=== PATIENT | female | born 1995 | race Caucasian/White ===

== ENCOUNTER 2017-01-15 16:15 | Emergency (ER) | payer OTHER ==
[2017-01-15] MEDS ORDERED: ONDANSETRON 4 MG/2 ML VIAL IVP STA (16:27)
[2017-01-15] MEDS ORDERED: DICYCLOMINE 10 MG/ML 2 ML AMP IM STA (16:27)
--- NOTE | 2017-01-15 16:42 | ED ---
General Adult HPI - General Chief complaint: Abdominal Pain Stated complaint: Abd Pain Time Seen by Provider: 01/15/17 16:22 Source: patient, RN notes reviewed Mode of arrival: ambulatory Limitations: no limitations - History of Present Illness Initial comments: 21-year-old female presents to the emergency department with a chief complaint of abdominal pain. She started to have this cramping abdominal pain about 2 hours ago. Patient states she had one episode of vomiting with it. Denies any fevers changes in bowel or bladder habits. States she has had this pain in the past and they never figure it out. She denies any fever chills. She's been able to eat normally. They were concerned due to the continued pain so she thought that she should be evaluated. Patient denies any recent fever, chills, shortness of breath, chest pain, back pain, numbness or tingling, dysuria or hematuria, constipation or diarrhea, headaches or visual changes, or any other current symptoms. - Related Data Home Medications Medication Instructions Recorded Confirmed No Known Home Medications [No 07/14/14 01/15/17 Known Home Medications] Allergies Allergy/AdvReac Type Severity Reaction Status Date / Time hydromorphone HCl AdvReac Nausea Verified 01/15/17 16:46 [From Dilaudid] Review of Systems ROS Statement: Those systems with pertinent positive or pertinent negative responses have been documented in the HPI. ROS Other: All systems not noted in ROS Statement are negative. Past Medical History Past Medical History: No Reported History History of Any Multi-Drug Resistant Organisms: None Reported Past Surgical History: No Surgical Hx Reported Past Psychological History: ADD/ADHD Smoking Status: Former smoker Past Alcohol Use History: None Reported Past Drug Use History: Marijuana General Exam - General Exam Comments Initial Comments: General: The patient is awake and alert, in no distress, and does not appear acutely ill. Eye: Pupils are equal, round and reactive to light, extra-ocular movements are intact; there is normal conjunctiva bilaterally. No signs of icterus. Ears, nose, mouth and throat: There are moist mucous membranes and no oral lesions. Neck: The neck is supple, there is no tenderness. Cardiovascular: There is a regular rate and rhythm. No murmur, rub or gallop is appreciated. Respiratory: Lungs are clear to auscultation, respirations are non-labored, breath sounds are equal. No wheezes, stridor, rales, or rhonchi. Gastrointestinal: Soft, non-distended, non-tender abdomen without masses or organomegaly noted. There is no rebound or guarding present. No CVA tenderness. Bowel sounds are unremarkable. Back: There is no tenderness to palpation in the midline. There is no obvious deformity. No rashes noted. Musculoskeletal: Normal ROM, no tenderness, There is no pedal edema. There is no calf tenderness or swelling. Sensation intact. Pulses equal bilaterally 2+. Neurological: CN II-XII intact, There are no obvious motor or sensory deficits. Coordination appears grossly intact. Speech is normal. Skin: Skin is warm and dry and no rashes or lesions are noted. Psychiatric: Cooperative, appropriate mood & affect, normal judgment. Limitations: no limitations Course Vital Signs 01/15/17 16:19 Temperature 98.4 F Pulse Rate 87 Respiratory 18 Rate Blood Pressure 131/66 O2 Sat by Pulse 98 Oximetry Medical Decision Making - Medical Decision Making 21-year-old female presents emergency department with a chief complaint of abdominal pain. This time patient's lab work is reviewed. Patient's ultrasound as well. Tylenol for pain. Discussed follow-up with or so. Patient stated that she understood and she is in agreement this plan. All questions have been answered. She'll be discharged. - Lab Data Result diagrams: 01/15/17 16:50 01/15/17 16:50 Lab Results 01/15/17 01/15/17 01/15/17 Range/Units 16:50 16:50 16:50 WBC 13.4 H (4.0-11.0) k/uL RBC 5.20 (3.80-5.40) m/uL Hgb 15.2 (11.4-16.0) gm/dL Hct 46.2 H (34.0-46.0) % MCV 88.8 (80.0-100.0) fL MCH 29.1 (25.0-35.0) pg MCHC 32.8 (31.0-37.0) g/dL RDW 13.8 (11.5-15.5) % Plt Count 247 (150-450) k/uL Neutrophils % 74 % Lymphocytes % 19 % Monocytes % 5 % Eosinophils % 1 % Basophils % 0 % Neutrophils # 9.9 H (1.3-7.7) k/uL Lymphocytes # 2.5 (1.0-4.8) k/uL Monocytes # 0.7 (0-1.0) k/uL Eosinophils # 0.2 (0-0.7) k/uL Basophils # 0.0 (0-0.2) k/uL Sodium 137 (137-145) mmol/L Potassium 4.1 (3.5-5.1) mmol/L Chloride 106 (98-107) mmol/L Carbon Dioxide 22 (22-30) mmol/L Anion Gap 9 mmol/L BUN 10 (7-17) mg/dL Creatinine 0.70 (0.52-1.04) mg/dL Est GFR (MDRD) Af Amer >60 (>60 ml/min/1.73 sqM) Est GFR (MDRD) Non-Af >60 (>60 ml/min/1.73 sqM) Glucose 85 (74-99) mg/dL Calcium 9.4 (8.4-10.2) mg/dL Total Bilirubin 0.2 (0.2-1.3) mg/dL AST 18 (14-36) U/L ALT 47 (9-52) U/L Alkaline Phosphatase 84 (38-126) U/L Total Protein 6.6 (6.3-8.2) g/dL Albumin 4.1 (3.5-5.0) g/dL Amylase 60 (30-110) U/L Lipase 51 (23-300) U/L Urine Color Urine Appearance (Clear) Urine pH (5.0-8.0) Ur Specific [place] (1.001-1.035) Urine Protein (Negative) Urine Glucose (UA) (Negative) Urine Ketones (Negative) Urine Blood (Negative) Urine Nitrite (Negative) Urine Bilirubin (Negative) Urine Urobilinogen (<2.0) mg/dL Ur Leukocyte Esterase (Negative) Urine RBC (0-5) /hpf Urine WBC (0-5) /hpf Ur Squamous Epith Cells (0-4) /hpf Urine Bacteria (None) /hpf Urine Mucus (None) /hpf Urine HCG, Qual Detected (Not Detectd) 01/15/17 Range/Units 16:50 WBC (4.0-11.0) k/uL RBC (3.80-5.40) m/uL Hgb (11.4-16.0) gm/dL Hct (34.0-46.0) % MCV (80.0-100.0) fL MCH (25.0-35.0) pg MCHC (31.0-37.0) g/dL RDW (11.5-15.5) % Plt Count (150-450) k/uL Neutrophils % % Lymphocytes % % Monocytes % % Eosinophils % % Basophils % % Neutrophils # (1.3-7.7) k/uL Lymphocytes # (1.0-4.8) k/uL Monocytes # (0-1.0) k/uL Eosinophils # (0-0.7) k/uL Basophils # (0-0.2) k/uL Sodium (137-145) mmol/L Potassium (3.5-5.1) mmol/L Chloride (98-107) mmol/L Carbon Dioxide (22-30) mmol/L Anion Gap mmol/L BUN (7-17) mg/dL Creatinine (0.52-1.04) mg/dL Est GFR (MDRD) Af Amer (>60 ml/min/1.73 sqM) Est GFR (MDRD) Non-Af (>60 ml/min/1.73 sqM) Glucose (74-99) mg/dL Calcium (8.4-10.2) mg/dL Total Bilirubin (0.2-1.3) mg/dL AST (14-36) U/L ALT (9-52) U/L Alkaline Phosphatase (38-126) U/L Total Protein (6.3-8.2) g/dL Albumin (3.5-5.0) g/dL Amylase (30-110) U/L Lipase (23-300) U/L Urine Color Yellow Urine Appearance Cloudy H (Clear) Urine pH 7.0 (5.0-8.0) Ur Specific [place] 1.019 (1.001-1.035) Urine Protein Negative (Negative) Urine Glucose (UA) Negative (Negative) Urine Ketones Negative (Negative) Urine Blood Negative (Negative) Urine Nitrite Negative (Negative) Urine Bilirubin Negative (Negative) Urine Urobilinogen <2.0 (<2.0) mg/dL Ur Leukocyte Esterase Small H (Negative) Urine RBC 1 (0-5) /hpf Urine WBC 3 (0-5) /hpf Ur Squamous Epith Cells 3 (0-4) /hpf Urine Bacteria Occasional H (None) /hpf Urine Mucus Rare H (None) /hpf Urine HCG, Qual (Not Detectd) - Radiology Data Radiology results: report reviewed, image reviewed Disposition Clinical Impression: Abdominal pain affecting Disposition: HOME SELF-CARE Condition: Stable Instructions: Abdominal Pain in (ED) Additional Instructions: Please use medication as discussed. Please follow up with family doctor if symptoms have not improved over the next two days. Please return to the emergency room if your symptoms increase or worsen or for any other concerns. Referrals: Palmer Franklin MD [Primary Care Provider] - 1-2 days Time of Disposition: 17:54
[2017-01-15 17:04] LABS: Basophils % (A) 0 %; CH 29.8; CHCM 33.7; Eosinophils # (A) 0.2 k/uL (0-0.7); Eosinophils % (A) 1 %; HCT 46.2 % (34.0-46.0); HDW 2.44; HGB 15.2 gm/dL (11.4-16.0); Luc # (Auto) 0.13; Luc % (Auto) 1; Lymphocytes # (A) 2.5 k/uL (1.0-4.8); Lymphocytes % (A) 19 %; MCH 29.1 pg (25.0-35.0); MCHC 32.8 g/dL (31.0-37.0); MCV 88.8 fL (80.0-100.0); Monocytes # (A) 0.7 k/uL (0-1.0); Monocytes % (A) 5 %; Neutrophils # (A) 9.9 k/uL (1.3-7.7); Neutrophils % (A) 74 %; RDW 13.8 % (11.5-15.5); WBC 13.4 k/uL (4.0-11.0); WBC (Perox) 12.64
[2017-01-15 17:06] LABS: Appearance,Urine Cloudy (Clear); Bacteria,Urine Occasional /hpf; Bilirubin,Urine Negative (Negative); Glucose,Urine (UA) Negative (Negative); Ketones,Urine Negative (Negative); Leukocyte Esterase,Urine Small (Negative); Mucus,Urine Rare /hpf; Nitrite,Urine Negative (Negative); Particle Count 7525; Protein,Urine Negative (Negative); RBC,Urine 1 /hpf (0-5); Specific Gravity,Urine 1.019 (1.001-1.035); Squamous Epithelial Cell,Urine 3 /hpf (0-4); UA Billing (MACRO vs. MICRO) MICRO; Urobilinogen,Urine <2.0 mg/dL (<2.0); WBC,Urine 3 /hpf (0-5)
[2017-01-15 17:13] LABS: ALT 47 U/L (9-52); AST 18 U/L (14-36); Alkaline Phosphatase 84 U/L (38-126); Amylase 60 U/L (30-110); Anion Gap 9 mmol/L; Blood Urea Nitrogen 10 mg/dL (7-17); Calcium 9.4 mg/dL (8.4-10.2); Carbon Dioxide 22 mmol/L (22-30); Chloride 106 mmol/L (98-107); Glucose 85 mg/dL (74-99); Non-African American GFR(MDRD) >60 (>60 ml/min/1.73 sqM); Potassium 4.1 mmol/L (3.5-5.1); Sodium 137 mmol/L (137-145); Total Bilirubin 0.2 mg/dL (0.2-1.3); Total Protein 6.6 g/dL (6.3-8.2)
--- NOTE | 2017-01-15 17:53 | US ---
EXAMINATION TYPE: US OB <=14 wks transvag DATE OF EXAM: 01/15/2017 COMPARISON: NONE CLINICAL HISTORY: Pain. Cramping EXAM PERFORMED: Transvaginal (TV) and Transabdominal (TA) EXAM MEASUREMENTS: GESTATIONAL AGE / DATING Physician Established: Not yet established Dates by LMP: LMP unknown Dates by First Scan: No previous this is first scan Dates by Current Scan for: (6 weeks/3 days) EDC: 09/07/17 MATERNAL ANATOMY Uterus: 8.3 x 4.3 x 5.5cm Right Ovary: 2.9 x 1.5 x 1.6cm Left Ovary: 3.4 x 2.2 x 2.6cm Post CDS / Adnexa: appears wnl Presence of free fluid: no Presence of corpus luteal cyst: yes, left ovary = 2.4 x 2.0 x 2.3cm GESTATION / SURVEY CRL: 0.6cm (6 weeks/3 days) Yolk Sac (normal less than 6mm): 0.2cm Heart Rate: 121 bpm Rhythm: Normal IUP: Viable IUP Date of LMP: beginning of December Beta HcG (if available): Not available at this time Single viable IUP 6wks/3days with JOJO of 09/07/17. Corpus luteum left ovary. Cystic area adjacent to left ovary = 1.1 x 1.1cm ? possible paraovarian cyst IMPRESSION: Single living intrauterine fetus. The gestational age is 6 weeks 3 days. I see no complicating proces s.
[2017-01-15 18:20] VITALS: BP 128/56; PULSE 77; RESP 20; TEMP 98.3
== END 2017-01-15 18:10 | disposition home or self-care (01) ==
LOC: EC 16:15
DX: O99.89 Other specified diseases and conditions complicating pregnancy, childbirth and the puerperium (principal); R10.9 Unspecified abdominal pain; O21.0 Mild hyperemesis gravidarum; Z87.891 Personal history of nicotine dependence; Z88.5 Allergy status to narcotic agent; Z3A.01 Less than 8 weeks gestation of pregnancy
CPT/HCPCS: 96372 ×2; 96374 ×2; 99284 ×2; 36415; 80053; 82150; 83690; 85025; 81001; 81025; 84702; 76801; 76817; J0500; J2405

== ENCOUNTER 2017-03-17 09:32 | Emergency (ER) | payer OTHER ==
[2017-03-17] MEDS ORDERED: diphenhydrAMINE 50 MG/ML 1 ML VIAL IVP STA (10:07)
[2017-03-17] MEDS ORDERED: SODIUM CHLORIDE 0.9% 1,000 ML IV STA ×2 (10:07)
[2017-03-17] MEDS ORDERED: METOCLOPRAMIDE 5 MG/ML 2 ML VIAL IVP STA (10:07)
[2017-03-17] MEDS ORDERED: ACETAMINOPHEN TAB 500 MG TAB PO STA (10:08)
[2017-03-17 10:49] LABS: Appearance,Urine Cloudy (Clear); Bacteria,Urine Rare /hpf; Basophils % (A) 0 %; Bilirubin,Urine Negative (Negative); Blood,Urine Negative (Negative); Color,Urine Yellow; Eosinophils # (A) 0.1 k/uL (0-0.7); Eosinophils % (A) 1 %; Glucose,Urine (UA) Negative (Negative); HGB 14.7 gm/dL (11.4-16.0); Ketones,Urine 2+ (Negative); Leukocyte Esterase,Urine Small (Negative); Lymphocytes # (A) 0.5 k/uL (1.0-4.8); Lymphocytes % (A) 4 %; MCH 28.7 pg (25.0-35.0); MCHC 31.8 g/dL (31.0-37.0); MCV 90.2 fL (80.0-100.0); Mean Platelet Volume 8.9; Monocytes # (A) 0.4 k/uL (0-1.0); Monocytes % (A) 3 %; Mucus,Urine Many /hpf; Neutrophils # (A) 11.8 k/uL (1.3-7.7); Neutrophils % (A) 92 %; Nitrite,Urine Negative (Negative); Platelet Count 214 k/uL (150-450); Protein,Urine 1+ (Negative); RBC,Urine 15 /hpf (0-5); RDW 14.7 % (11.5-15.5); Specific Gravity,Urine 1.031 (1.001-1.035); Squamous Epithelial Cell,Urine 24 /hpf (0-4); WBC 12.8 k/uL (4.0-11.0); WBC,Urine 9 /hpf (0-5)
[2017-03-17 10:58] LABS: ALT 37 U/L (9-52); AST 16 U/L (14-36); Albumin 3.8 g/dL (3.5-5.0); Alkaline Phosphatase 66 U/L (38-126); Amylase 48 U/L (30-110); Anion Gap 10 mmol/L; Blood Urea Nitrogen 8 mg/dL (7-17); Carbon Dioxide 26 mmol/L (22-30); Chloride 104 mmol/L (98-107); Glucose 113 mg/dL (74-99); Lipase 38 U/L (23-300); Potassium 3.8 mmol/L (3.5-5.1); Sodium 140 mmol/L (137-145); Total Bilirubin 0.4 mg/dL (0.2-1.3); Total Protein 6.4 g/dL (6.3-8.2)
--- NOTE | 2017-03-17 11:10 | ED ---
Nausea/Vomiting/Diarrhea HPI <Paul Gomez - Last Filed: 03/17/17 12:48> - General Source: patient, RN notes reviewed, old records reviewed Mode of arrival: ambulatory Limitations: no limitations <Lina Hua - Last Filed: 03/17/17 22:09> - General Chief complaint: Nausea/Vomiting/Diarrhea Stated complaint: 15 WEEKS AND CRAMPING Time Seen by Provider: 03/17/17 10:03 - History of Present Illness Initial comments: This is a 21-year-old female presents emergency department today chief complaint of severe abdominal pain starting 8:00 yesterday evening into today. She said multiple episodes of vomiting. She is currently 15 weeks . 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 Clemente. She denies any lower abdominal pain or cramping. Denies any vaginal bleeding. She reports that she's had no fever or chills. She is concerned because she's not been able to hold any fluids down. She states that she's had no significant medical history or surgeries. Family history of gallbladder disease. (Lina Hua) - Related Data Home Medications Medication Instructions Recorded Confirmed Aph-Iajf-Sdiwg Acid 1 cap PO HS 03/17/17 03/17/17 [-U Capsule (formulary)] Previous Rx's Medication Instructions Recorded Metoclopramide [Reglan] 5 mg PO TID #12 tab 03/17/17 Allergies Allergy/AdvReac Type Severity Reaction Status Date / Time hydromorphone HCl AdvReac Nausea Verified 03/17/17 12:33 [From Dilaudid] Review of Systems ROS Other: All systems not noted in ROS Statement are negative. <Paul Gomez - Last Filed: 03/17/17 12:48> ROS Other: All systems not noted in ROS Statement are negative. <Lina Hua - Last Filed: 03/17/17 22:09> ROS Statement: Those systems with pertinent positive or pertinent negative responses have been documented in the HPI. Past Medical History Past Medical History: Seizure Disorder History of Any Multi-Drug Resistant Organisms: None Reported Past Surgical History: No Surgical Hx Reported Past Psychological History: ADD/ADHD Smoking Status: Former smoker Past Alcohol Use History: None Reported Past Drug Use History: Marijuana <Lina Hua - Last Filed: 03/17/17 22:09> General Exam <Paul Gomez - Last Filed: 03/17/17 12:48> Limitations: no limitations General appearance: alert, in no apparent distress Head exam: Present: atraumatic, normocephalic, normal inspection Eye exam: Present: normal appearance ENT exam: Present: normal exam, mucous membranes moist Neck exam: Present: normal inspection. Absent: tenderness, meningismus, lymphadenopathy Respiratory exam: Present: normal lung sounds bilaterally. Absent: respiratory distress, wheezes, rales, rhonchi, stridor Cardiovascular Exam: Present: regular rate, normal rhythm, normal heart sounds. Absent: systolic murmur, diastolic murmur, rubs, gallop, clicks GI/Abdominal exam: Present: soft, tenderness (epigastric tenderness), normal bowel sounds. Absent: distended, guarding, rebound, rigid Extremities exam: Present: normal inspection, full ROM, normal capillary refill. Absent: tenderness, pedal edema, joint swelling, calf tenderness Back exam: Present: normal inspection Neurological exam: Present: alert, oriented X3, CN II-XII intact Psychiatric exam: Present: normal affect, normal mood <Lina Hua - Last Filed: 03/17/17 22:09> - General Exam Comments Initial Comments: This is a 21-year-old female. She is currently 15 weeks . She appears in moderate discomfort. (Lina Hua) Vital Signs 03/17/17 03/17/17 09:37 13:10 Temperature 98.6 F 96.4 F L Pulse Rate 123 H 85 Respiratory 18 16 Rate Blood Pressure 148/77 131/81 O2 Sat by Pulse 96 98 Oximetry Medical Decision Making - Lab Data Result diagrams: 03/17/17 10:35 03/17/17 10:35 <Paul Gomez - Last Filed: 03/17/17 12:48> - Lab Data Result diagrams: 03/17/17 10:35 03/17/17 10:35 - Radiology Data Radiology results: report reviewed <Lina Hua - Last Filed: 03/17/17 22:09> - Medical Decision Making medical decision making; patient's here because of epigastric discomfort and vomiting. No pain to the right upper quadrant. Patient received fluids medication. Feeling much better at this time. No discomfort on examination. Patient was told that she has some sludge in the gallbladder disease to be followed. Currently she'll be referred back to her family physician and her OB/ [employer] old told return emergency room as needed. No greasy fatty foods. Take medications as directed by her doctors. Dr. Gomez (Jason) - Lab Data Lab Results 03/17/17 03/17/17 03/17/17 Range/Units 10:35 10:35 10:35 WBC 12.8 H (4.0-11.0) k/uL RBC 5.10 (3.80-5.40) m/uL Hgb 14.7 (11.4-16.0) gm/dL Hct 46.0 (34.0-46.0) % MCV 90.2 (80.0-100.0) fL MCH 28.7 (25.0-35.0) pg MCHC 31.8 (31.0-37.0) g/dL RDW 14.7 (11.5-15.5) % Plt Count 214 (150-450) k/uL Neutrophils % 92 % Lymphocytes % 4 % Monocytes % 3 % Eosinophils % 1 % Basophils % 0 % Neutrophils # 11.8 H (1.3-7.7) k/uL Lymphocytes # 0.5 L (1.0-4.8) k/uL Monocytes # 0.4 (0-1.0) k/uL Eosinophils # 0.1 (0-0.7) k/uL Basophils # 0.0 (0-0.2) k/uL Sodium 140 (137-145) mmol/L Potassium 3.8 (3.5-5.1) mmol/L Chloride 104 (98-107) mmol/L Carbon Dioxide 26 (22-30) mmol/L Anion Gap 10 mmol/L BUN 8 (7-17) mg/dL Creatinine 0.60 (0.52-1.04) mg/dL Est GFR (MDRD) Af Amer >60 (>60 ml/min/1.73 sqM) Est GFR (MDRD) Non-Af >60 (>60 ml/min/1.73 sqM) Glucose 113 H (74-99) mg/dL Calcium 9.0 (8.4-10.2) mg/dL Total Bilirubin 0.4 (0.2-1.3) mg/dL AST 16 (14-36) U/L ALT 37 (9-52) U/L Alkaline Phosphatase 66 (38-126) U/L Total Protein 6.4 (6.3-8.2) g/dL Albumin 3.8 (3.5-5.0) g/dL Amylase 48 (30-110) U/L Lipase 38 (23-300) U/L Urine Color Yellow Urine Appearance Cloudy H (Clear) Urine pH 6.0 (5.0-8.0) Ur Specific [place] 1.031 (1.001-1.035) Urine Protein 1+ H (Negative) Urine Glucose (UA) Negative (Negative) Urine Ketones 2+ H (Negative) Urine Blood Negative (Negative) Urine Nitrite Negative (Negative) Urine Bilirubin Negative (Negative) Urine Urobilinogen 2.0 (<2.0) mg/dL Ur Leukocyte Esterase Small H (Negative) Urine RBC 15 H (0-5) /hpf Urine WBC 9 H (0-5) /hpf Ur Squamous Epith Cells 24 H (0-4) /hpf Urine Bacteria Rare H (None) /hpf Urine Mucus Many H (None) /hpf - Radiology Data Single fetus with breech presentation with gestational to 16 weeks and 0 days. Estimated confinement based on examination 09/01/2017. Possible sludge within the gallbladder. Possible hyperechoic echoes insulin- dependent portion. Possible sludge noted. Negative sonographic Edmond sign. Gallbladder wall measures 3 mm. The gallbladder wall is the upper limits of normal in size. (iLna Hua) Disposition <Paul Gomez - Last Filed: 03/17/17 12:48> Time of Disposition: 12:54 <Lina Hua - Last Filed: 03/17/17 22:09> Clinical Impression: Nausea/vomiting in , Gallbladder sludge Disposition: HOME SELF-CARE Condition: Good Instructions: Biliary Colic (ED) Additional Instructions: Patient advised to increase her fluid intake. Take nausea medicine instructed. Follow-up with your [employer]IL[employer] SALES REPRESENTATIVE primary care physician. Avoid fatty greasy foods. Return to emergency department if any alarming signs or symptoms occur. Prescriptions: Metoclopramide [Reglan] 5 mg PO TID #12 tab Referrals: Palmer Franklin MD [Primary Care Provider] - 1-2 days
--- NOTE | 2017-03-17 12:17 | US ---
EXAMINATION TYPE: US gallbladder DATE OF EXAM: 03/17/2017 COMPARISON: NONE CLINICAL HISTORY: Pain. Pelvic pain and N/V x 1 day, patient is 15 weeks , obese patient EXAM MEASUREMENTS: Liver Length: 16.6 cm Gallbladder Wall: 0.3 cm CBD: 0.4 cm Right Kidney: 12.0 x 4.8 x 4.7 cm Pancreas: visualized portions wnl, tail obscured by overlying midline bowel gas Liver: course echotexture Gallbladder: possible hyperechoic echoes within dependant portion, possible sludge Evidence for sonographic Edmond's sign: no CBD: wnl Right Kidney: wnl Limited views of the pancreas are unremarkable. Liver is normal in size without biliary dilatation. There is some questionable sludge within the gallbladder. The gallbladder wall measures 3 mm. The dis corona common hepatic duct measures 4 mm. There is no sonographic Edmond's sign. The right kidney is unremarkable. Intrahepatic IVC is normal. IMPRESSION: 1. POSSIBLE SLUDGE WITHIN THE GALLBLADDER. 2. GALLBLADDER WALL IS AT THE UPPER LIMITS OF NORMAL IN SIZE.
--- NOTE | 2017-03-17 12:25 | US ---
EXAMINATION TYPE: US OB >= 14 wk fetus DATE OF EXAM: 03/17/2017 COMPARISON: US 2017 CLINICAL HISTORY: PainPelvic pain and N/V x 1 day, 2, para 1 TECHNIQUE: Transabdominal (TA) GESTATIONAL AGE / DATING Physician Established: (15 weeks/2 days) EDC: 09/06/2017 Dates by LMP: Unknown Dates by First Scan: (15 weeks/1 days) EDC: 09/07/2017 Dates by Current Scan: (16 weeks/0 days) EDC: 09/01/2017 Beta HCG (if available): Not available at time of exam SURVEY IUP: Single PLACENTA: Posterior PREVIA: Low Lying, tip of placenta 0.5cm from internal cervical os CHASE: 11.0 cm Normal CERVICAL LENGTH (transabdominal: norm > 3.0cm): 3.4 cm BIOMETRY PRESENTATION: Breech LIE: Longitudinal BPD: 3.3 cm 16 weeks / 2 days HC: 11.5 cm 15 weeks / 4 days AC: 9.4 cm 15 weeks / 4 days FL: 1.9 cm 15 weeks / 5 days ESTIMATED WEIGHT IN GRAMS: 131 grams ESTIMATED WEIGHT IN LBS/OZ: 0 lbs. 5 oz. WEIGHT PERCENTAGE BASED ON ESTABLISHED DATES: 65% HC/AC: 1.21 Normal FL/AC: 20.33 HEART RATE: 149 bpm RHYTHM: Normal MATERNAL WALL MEASUREMENT: 3.2 cm from skin to anterior uterine wall (if exam limited due to body hab itus). Viable single IUP measuring 16 weeks 0 days with a heart rate of 149bpm and an estimated delivery elsa e of 09/01/2017. IMPRESSION: Hester fetus present in a breech presentation with a gestational age of 16 weeks 0 days +/- 10 day s. Estimated date of confinement based on this examination is 09/01/2017.
[2017-03-17 13:14] VITALS: BP 131/81; PULSE 85; RESP 16; TEMP 96.4
== END 2017-03-17 13:14 | disposition home or self-care (01) ==
LOC: EC 09:32
DX: O21.9 Vomiting of pregnancy, unspecified (principal); O99.612 Diseases of the digestive system complicating pregnancy, second trimester; O32.1XX0 Maternal care for breech presentation, not applicable or unspecified; K82.8 Other specified diseases of gallbladder; O99.89 Other specified diseases and conditions complicating pregnancy, childbirth and the puerperium; R10.9 Unspecified abdominal pain; Z87.891 Personal history of nicotine dependence; Z79.899 Other long term (current) drug therapy; Z88.5 Allergy status to narcotic agent; Z83.79 Family history of other diseases of the digestive system; Z3A.16 16 weeks gestation of pregnancy
CPT/HCPCS: 36415; 80053; 82150; 83690; 85025; 81001; 76805; 76705; 99284; 96374; 96375; 96361 ×2; J1200; J2765

== ENCOUNTER → 2017-06-04 | Outpatient (CLI) | payer OTHER ==
[2017-06-04 11:40] LABS: HCT 39.5 % (34.0-46.0); HGB 13.6 gm/dL (11.4-16.0); MCHC 34.4 g/dL (31.0-37.0); MCV 87.1 fL (80.0-100.0); Mean Platelet Volume 7.7; Platelet Count 220 k/uL (150-450); RBC 4.53 m/uL (3.80-5.40); RDW 14.3 % (11.5-15.5); WBC 12.2 k/uL (4.0-11.0)
== END | disposition home or self-care (01) ==
LOC: LABWHC1 10:01
PROVIDERS: ATTEND Obstetrics & Gynecology
DX: Z34.82 Encounter for supervision of other normal pregnancy, second trimester (principal); Z3A.00 Weeks of gestation of pregnancy not specified
CPT/HCPCS: 36415; 82950; 85027

== ENCOUNTER 2017-08-17 15:25 | Inpatient (IN) | payer OTHER ==
[2017-08-17] MEDS ORDERED: OXYTOCIN 10 UNIT/ML 1 ML VIAL IM PRN (16:10)
[2017-08-17] MEDS ORDERED: LIDOCAINE 1% (PF) 10 MG/ML (30 ML SDV) SQ PRN (16:10)
[2017-08-17] MEDS ORDERED: METHYLERGONOVINE 0.2 MG/ML 1 ML AMP IM PRN (16:10)
[2017-08-17] MEDS ORDERED: TERBUTALINE 1 MG/ML VIAL SQ PRN (16:10)
[2017-08-17] MEDS ORDERED: CARBOPROST TROMETHAMINE 250 MCG/ML 1 ML AMP IM PRN (16:10)
[2017-08-17] MEDS ORDERED: BUTORPHANOL 1 MG/ML 1 ML VIAL IV PRN (16:11)
[2017-08-17] MEDS ORDERED: OXYTOCIN 20 UNITS/1000 ML NS 1,000 ML IV SCH (16:15)
--- NOTE | 2017-08-17 16:38 | P.HPOB ---
History of Present Illness H&P Date: 08/17/17 Chief Complaint: Spontaneous rupture of membranes This is a 21-year-old female 2 para 1 with an estimated date of confinement of 09/07/2017, estimated gestational age of 37-0/7 weeks, who presents to labor and delivery with complaints of leaking fluid since approximately 11 AM this morning. She initially was unsure if she was leaking and therefore waited a little while to make sure. She has been feeling irregular contractions about every 20 minutes. care has been with Dr. Clemente and has been uncomplicated per patient. labs: Hepatitis B surface antigen-negative RPR-nonreactive Rubella-immune Blood type-O+ Antibody screen-negative HIV-nonreactive Hemoglobin-14.3 One hour Glucola-91 Random glucose-96 GC/Chlamydia-negative Obstetrical ultrasound-normal anatomy One hour Glucola-106 Group B streptococcus-negative Obstetrical history: . History of 1 vaginal delivery at 38 weeks. That was complicated by gestational diabetes. Review of Systems Constitutional: Denies chills, Denies fever Eyes: denies blurred vision, denies pain Ears, nose, mouth and throat: Denies headache, Denies sore throat Cardiovascular: Denies chest pain, Denies shortness of breath Respiratory: Denies cough Gastrointestinal: Reports abdominal pain (Irregular contractions) Genitourinary: Reports pelvic pain, Reports Musculoskeletal: Reports low back pain Integumentary: Denies pruritus, Denies rash Neurological: Reports seizures (History, no seizures since 2014.), Denies numbness, Denies weakness Psychiatric: Denies anxiety, Denies depression Past Medical History Past Medical History: Seizure Disorder History of Any Multi-Drug Resistant Organisms: None Reported Past Surgical History: No Surgical Hx Reported Past Psychological History: No Psychological Hx Reported Smoking Status: Never smoker Past Alcohol Use History: None Reported Past Drug Use History: Marijuana (Last used approximately 1 month ago) Medications and Allergies Home Medications Medication Instructions Recorded Confirmed Type [id number] Acid 1 cap PO HS 03/17/17 08/17/17 History [-U Capsule (formulary)] Allergies Allergy/AdvReac Type Severity Reaction Status Date / Time No Known Allergies Allergy Verified 08/17/17 16:22 Exam Osteopathic Statement: *. No significant issues noted on an osteopathic structural exam other than those noted in the History and Physical/Consult. - Vital Signs Vital signs: Intake and Output 08/17/17 08/17/17 08/17/17 06:59 14:59 22:59 Other: Weight 117.934 kg HEENT: Within normal limits Heart: Regular rate and rhythm Lungs: Clear to auscultation bilaterally Abdomen: Cervix: 1-1/2 cm/60%/-2 station. Palpable bag of water noted and artificial rupture membranes is carried out with more clear fluid noted. Amnisure was positive in triage area Heart tones: Reactive Contractions: Irregular Extremities: Negative Homans Assessment and Plan (1) 37 weeks gestation of Current Visit: Yes Status: Acute Code(s): Z3A.37 - 37 WEEKS GESTATION OF SNOMED Code(s): 87906895 Plan: Plan is admission for labor. Will start oxytocin augmentation of labor. Epidural anesthesia when desired. Expectant management.
[2017-08-17] MEDS: LACTATED RINGERS 1,000 ML IV SCH ×3 (16:42→23:21)
[2017-08-17 17:04] LABS: Basophils % (A) 0 %; Eosinophils % (A) 0 %; HCT 39.2 % (34.0-46.0); HGB 13.3 gm/dL (11.4-16.0); Lymphocytes # (A) 1.7 k/uL (1.0-4.8); Lymphocytes % (A) 12 %; MCH 30.2 pg (25.0-35.0); MCV 88.8 fL (80.0-100.0); Mean Platelet Volume 7.8; Monocytes # (A) 0.6 k/uL (0-1.0); Monocytes % (A) 5 %; Neutrophils # (A) 10.9 k/uL (1.3-7.7); Neutrophils % (A) 81 %; Platelet Count 205 k/uL (150-450); RBC 4.42 m/uL (3.80-5.40); RDW 14.6 % (11.5-15.5); WBC 13.4 k/uL (4.0-11.0)
[2017-08-17 18:45] VITALS: BMI 44.6
[2017-08-17 18:48] LABS: Amphetamine Screen,Urine Not Detected (NotDetected); Barbiturate Screen,Urine Not Detected (NotDetected); Benzodiazepines Screen,Urine Not Detected (NotDetected); Cocaine Screen,Urine Not Detected (NotDetected); Methadone Screen, Urine Not Detected (NotDetected); Opiate Screen,Urine Not Detected (NotDetected); Oxycodone Screen, Urine Not Detected (NotDetected); Phencyclidine Screen,Urine Not Detected (NotDetected); Tricyclic Antidepressant,Urine Not Detected (NotDetected); Urn Cannabinoid Scrn Detected (NotDetected)
[2017-08-17] MEDS ORDERED: fentaNYL (PF) 50 MCG/ML 5 ML AMP ONE (19:56)
[2017-08-17] MEDS ORDERED: SODIUM CHLORIDE 0.9% 100 ML BAG ONE (19:56)
[2017-08-17] MEDS ORDERED: BUPIVACAINE (PF) 0.25% 30 ML VIAL ONE (19:56)
[2017-08-17] MEDS ORDERED: ROPIVACAINE 100 MG, fentaNYL (PF) 200 MCG in SODIUM CHLORIDE 0.9% 76 ML EPIDURAL ONE (20:26)
--- NOTE | 2017-08-18 00:06 | P.PROBDLV ---
Vaginal Delivery Note - . Vaginal Delivery Note: The patient progressed to complete dilation after oxytocin augmentation of labor and epidural anesthesia. She progressed rather rapidly from 7 to complete and was unable to stop pushing. She delivered vaginally a viable male infant across the perineum into the bed. Brisk cry was noted immediately. Nose and mouth were bulb suctioned on the bed. Cord was clamped and cut. Infant was then given to mother to hold skin to skin. A viable male infant was noted with scores of 8 at 1 minute and 9 at 5 minutes. weight is pending at this time. Placenta delivered shortly thereafter, intact, with a three-vessel cord. Uterus contracted well after oxytocin was given and uterine massage was carried out. Inspection of the perineum revealed a first-degree perineal laceration. This area was anesthetized with 1% lidocaine and then sutured with 3-0 Vicryl suture in a running locked fashion. There was noted to be a right periurethral abrasion but this was noted to be hemostatic. Estimated blood loss is approximately 150 mL's. Both mother and are in stable condition.
[2017-08-18] MEDS ORDERED: diphenhydrAMINE 50 MG CAP PO PRN (00:07)
[2017-08-18] MEDS ORDERED: WITCH HAZEL 1 EACH MED..PAD TOPICAL PRN (00:07)
[2017-08-18] MEDS ORDERED: SIMETHICONE 80 MG CHEWABLE PO PRN (00:07)
[2017-08-18] MEDS ORDERED: diphenhydrAMINE 50 MG/ML 1 ML VIAL IVP PRN ×2 (00:07)
[2017-08-18] MEDS ORDERED: ZOLPIDEM 5 MG TAB PO PRN (00:07)
[2017-08-18] MEDS ORDERED: BENZOCAINE/MENTHOL SPRAY 1 GM/SPRAY AEROSOL TOPICAL PRN (00:07)
[2017-08-18] MEDS ORDERED: HYDROCORTISONE 2.5% RECTAL CREAM 30 GM TUBE RECTAL PRN (00:07)
[2017-08-18] MEDS ORDERED: diphenhydrAMINE 25 MG CAP PO PRN (00:07)
[2017-08-18] MEDS ORDERED: LANOLIN CREAM 5 GM TUBE TOPICAL PRN (00:07)
[2017-08-18] MEDS ORDERED: OXYTOCIN 20 UNITS/1000 ML NS 1,000 ML IV SCH (00:07)
--- NOTE | 2017-08-18 00:07 | P.MSEPDOC ---
Presenting Problems - Arrival Data Date of Arrival on Unit: 08/17/17 Time of Arrival on Unit: 15:20 Mode of Transport: Ambulatory - Complaint OB-Reason for Admission/Chief Complaint: Rule Out SROM Comment: 08/17/17 @ 1100; clear Medical History - Information : 2 Para: 1 Term: 1 : 0 Abortions: Spontaneous or Elective: 0 Number of Living Children: 1 - Gestational Age Gestational Age by JOJO (wks/days): 37 Weeks and 0 Days - History Complications: Hx. Substance Abuse Comment: MJ use during pregnany for seizure management Review of Systems - Review of Systems Constitutional: No problems Breast: No problems ENT: No problems Cardiovascular: No problems Respiratory: No problems Gastrointestinal: No problems Genitourinary: No problems Musculoskeletal: No problems Neurological: No problems Skin: No problems Vital Signs - Temperature Temperature: 96 F Temperature Source: Temporal Artery Scan - Pulse Right Sitting Brachial Pulse Rate: 115 Pulse Assessment Method: Automatic Cuff - Respirations Respiratory Rate: 18 Oxygen Delivery Method: Room Air - Blood Pressure Right Arm Sitting Blood Pressure: 131/76 Blood Pressure Mean: 94 Blood Pressure Source: Automatic Cuff Medical Screen Scoring (Pre) - Cervical Exam Dilation: 1-3 cm = 1 Effacement: More than 50% = 2 Membranes: Ruptured = 3 - Uterine Contractions Frequency: > 5 minutes apart = 1 Duration: N/A Intensity: N/A - Maternal Vital Signs Maternal Temperature: N/A Maternal Blood Pressure: N/A Signs of Preeclampsia: N/A Maternal Respirations: N/A - Maternal Trauma Maternal Trauma: N/A - Assessment Baseline FHR: 135 Heart Rate - NICHD Category: Category I (Normal) = 0 NST: Reactive Position: N/A Station: N/A - Total Score Total Score (Pre): 7 - Level of Risk Level of Risk: Medium (6-9) Physician Notification (Pre) - Physician Notified Physician Notified Date: 08/17/17 Physician Notified Time: 15:52 Physician/Practitioner Notifed:: Dr. Garcia Spoke With: Dr. Garcia New Order Received: Yes - Notification Comment Comment: requested Dr. Garcia to come in as pt is 7 cm dilated Disposition - Disposition OB Disposition: Admit, LDRP Suite I agree with the RN Medical Screening Exam: Yes Risk & Benefit of care provided described in d/c instruction: Yes Diagnosis: ENCOUNTER FOR FULL-TERM UNCOMPLICATED DELIVERY
[2017-08-18] MEDS: IBUPROFEN 600 MG TAB PO PRN ×3 (00:39→22:12)
[2017-08-18] MEDS: SENNOSIDES-DOCUSATE SODIUM 1 EACH TAB PO SCH ×4 (00:39→22:13)
[2017-08-18] MEDS: ACETAMINOPHEN TAB 325 MG TAB PO PRN ×2 (06:30→16:22)
[2017-08-18 07:52] LABS: Basophils % (A) 0 %; Eosinophils # (A) 0.1 k/uL (0-0.7); Eosinophils % (A) 0 %; HCT 38.5 % (34.0-46.0); HGB 13.3 gm/dL (11.4-16.0); Lymphocytes # (A) 1.7 k/uL (1.0-4.8); Lymphocytes % (A) 11 %; MCH 30.5 pg (25.0-35.0); MCHC 34.4 g/dL (31.0-37.0); MCV 88.7 fL (80.0-100.0); Monocytes # (A) 0.9 k/uL (0-1.0); Monocytes % (A) 6 %; Neutrophils # (A) 13.1 k/uL (1.3-7.7); Neutrophils % (A) 81 %; Platelet Count 210 k/uL (150-450); RBC 4.34 m/uL (3.80-5.40); RDW 14.7 % (11.5-15.5); WBC 16.1 k/uL (4.0-11.0)
--- NOTE | 2017-08-18 12:18 | P.PNOBGVD ---
Subjective - Subjective Principal diagnosis: Status post vaginal delivery day #1 Interval history: Patient is doing okay. Her baby did go to level I nursery this morning and is on oxygen. She is sad but understanding. Her lochia is decreasing. Her pain is fairly well controlled with oral pain medication. Patient reports: Reports appetite normal, Reports voiding normally, Reports pain well controlled, Reports ambulating normally : other (In level I nursery) Objective - Latest Vital Signs Latest vital signs: Vital Signs Temp Pulse Resp BP 08/18/17 08:20 98.5 F 80 16 117/61 08/18/17 08:00 98.5 F 83 16 97/51 08/18/17 03:00 96.8 F L 93 18 127/67 08/18/17 02:08 96.8 F L 96 18 114/62 08/18/17 01:38 93 18 109/59 08/18/17 01:08 97.2 F L 93 18 103/58 08/18/17 00:53 93 18 111/63 08/18/17 00:38 97.3 F L 94 18 117/66 08/18/17 00:23 108 H 18 110/64 08/18/17 00:08 97.0 F L 113 H 18 110/60 08/18/17 00:07 96 F L 115 H 18 131/76 08/17/17 18:41 18 08/17/17 16:52 96 F L 115 H 16 131/76 Intake and Output 08/17/17 08/18/17 08/18/17 22:59 06:59 14:59 Intake Total 2000 1620.85 Output Total 150 150 Balance 1850 1470.85 Intake: IV 2000 Lactated Ringers 1,000 ml 2000 @ 125 mls/hr IV .Q8H ALVARO Rx#:[id number] Intake, IV Titration 1020.85 Amount Oxytocin 20 Units/1000 ml 20.85 Ns 1,000 ml @ 1 MILLIUNIT/MIN 3 mls/hr IV .Q24H ALVARO Rx#:[id number] Oxytocin 20 Units/1000 ml 1000 Ns 1,000 ml @ Per Protocol IV .Q0M ALVARO Rx#: [id number] Oral 600 Output: Urine 150 Straight 150 Estimated Blood Loss 150 Other: # Voids 1 Weight 117.934 kg - Exam Abdomen: Present: normal appearance, soft. Absent: distention, tenderness Uterus: Present: normal, firm. Absent: tenderness - Labs Labs: Abnormal Lab Results - Last 24 Hours (Table) 08/17/17 08/17/17 08/18/17 Range/Units 16:41 17:30 07:08 WBC 13.4 H 16.1 H (4.0-11.0) k/uL Neutrophils # 10.9 H 13.1 H (1.3-7.7) k/uL U Marijuana (THC) Screen Detected H (NotDetected) Assessment and Plan Assessment: Status post vaginal delivery day #1 (1) 37 weeks gestation of Current Visit: Yes Status: Acute Code(s): Z3A.37 - 37 WEEKS GESTATION OF SNOMED Code(s): 14571647 Plan: Will continue with care today. Encouraged her to pump her breast milk.
[2017-08-19] MEDS: IBUPROFEN 600 MG TAB PO PRN ×2 (04:17→16:33)
[2017-08-19] MEDS: ACETAMINOPHEN TAB 325 MG TAB PO PRN ×3 (06:26→19:44)
--- NOTE | 2017-08-19 08:00 | P.DS ---
Providers Date of admission: 08/17/17 15:55 Expected date of discharge: 08/19/17 Attending physician: Kellie Garcia Primary care physician: Jane Clemente - Discharge Diagnosis(es) (1) 37 weeks gestation of Current Visit: Yes Status: Acute Hospital Course: This is a 21-year-old female 2 para 1 at 37-0/7 weeks who presented in active labor. Delivered vaginally a viable male infant with scores of 8 at 1 minute and 9 at 5 minutes and weight of 7 lbs. 5 oz. on 08/17/2017. Her course has been essentially compensated. Her baby has gone to level I nursery and is on high flow oxygen and antibiotics. She is planning to breast-feed. Lochia is decreasing. Her pain is fairly well controlled with ibuprofen. Vital signs are stable. Abdomen is soft with fundus firm and nontender. Extremities show negative Homans. Impression is status post vaginal delivery day #2. Plan is to discharge home today. Routine instructions are given. She is advised to follow up with Dr. Clemente in 6 weeks in the office. She will be given a prescription for ibuprofen and a breast pump. She is advised to call the office if she has any further questions or concerns prior to her appointment time. Procedures: Spontaneous vaginal delivery of a viable male infant on 08/17/2017 Patient Condition at Discharge: Stable Plan - Discharge Summary New Discharge Prescriptions: New Ibuprofen [Motrin] 600 mg PO Q6HR PRN #60 tab PRN Reason: Mild Pain Or Fever >= 100.5 Continue Huw-Bink-Jorts Acid [-U Capsule (formulary)] 1 cap PO HS Discharge Medication List Klx-Zknu-Lmaue Acid [-U Capsule (formulary)] 1 cap PO HS [History] Ibuprofen [Motrin] 600 mg PO Q6HR PRN #60 tab 08/19/17 [Rx] Follow up Appointment(s)/Referral(s): Jane Clemente DO [Primary Care Provider] - 6 Weeks Activity/Diet/Wound Care/Special Instructions: Instructions 1. Do not begin any exercise program for 3 weeks. 2. Do not resume sexual relations for 3 weeks or longer if uncomfortable. 3. You may take tub baths or showers at any time. 4. You may use tampons if desired after 3 weeks. 5. Keep the area of episiotomy (stitches) clean and dry. 6. If you are not nursing, wear a good fitting, supportive bra during the day and limit fluid intake for at least 1 week to prevent breast engorgement. 7. Call the office, [phone], within the next week to make appointment for your 6 week checkup if it has not already been made. 8. Report any of the following occurrences to the doctor promptly: a. Heavy, excessive bleeding b. Chills, fever c. Burning or frequency of urination d. Pain or redness and breasts if nursing e. Increasing pain or swelling in episiotomy (stitches). In addition to the above instructions, the following additional should be followed: 1. No heavy lifting or straining (exercising) until after 6 week checkup. 2. Keep abdominal incision clean and dry: You may wear a dressing if more comfortable. 3. Make office appointment for 10 days after going home or as instructed by her doctor. Discharge Disposition: HOME SELF-CARE
[2017-08-19 09:01] VITALS: RESP 16
[2017-08-19] MEDS: SENNOSIDES-DOCUSATE SODIUM 1 EACH TAB PO SCH (09:02)
[2017-08-19] MEDS ORDERED: DIPH,PERTUS(ACELL)TETVAC-LF 0.5 ML VIAL IM ONE (09:30)
[2017-08-19 16:32] VITALS: BP 116/75; PULSE 82; TEMP 98.5
== END 2017-08-19 22:40 | disposition home or self-care (01) | DRG 775 ==
LOC: FBPOP 15:25 → 4FBP 15:55
PROVIDERS: ADMIT Obstetrics & Gynecology; ATTEND Obstetrics & Gynecology
PROC: 00HU33Z Insertion of Infusion Device into Spinal Canal, Percutaneous Approach (ICD-10-PCS; principal; 2017-08-17)
PROC: 3E0R3NZ Introduction of Analgesics, Hypnotics, Sedatives into Spinal Canal, Percutaneous Approach (ICD-10-PCS; principal; 2017-08-17)
PROC: 10907ZC Drainage of Amniotic Fluid, Therapeutic from Products of Conception, Via Natural or Artificial Opening (ICD-10-PCS; principal; 2017-08-17)
PROC: 0HQ9XZZ Repair Perineum Skin, External Approach (ICD-10-PCS; principal; 2017-08-17)
PROC: 10E0XZZ Delivery of Products of Conception, External Approach (ICD-10-PCS; principal; 2017-08-17)
DX: O42.02 Full-term premature rupture of membranes, onset of labor within 24 hours of rupture (principal); O70.0 First degree perineal laceration during delivery; Z37.0 Single live birth; Z3A.37 37 weeks gestation of pregnancy
CPT/HCPCS: 59025; 80306; 84112; 85025; 88307; 90715; 99213

== ENCOUNTER 2018-08-01 06:15 | Inpatient (IN) | payer OTHER ==
[2018-08-05] MEDS ORDERED: CARBOPROST TROMETHAMINE 250 MCG/ML 1 ML AMP IM PRN (06:46)
[2018-08-05] MEDS ORDERED: OXYTOCIN 10 UNIT/ML 1 ML VIAL IM PRN (06:46)
[2018-08-05] MEDS ORDERED: LIDOCAINE 0.5% (PF) 5 MG/ML (50 ML SDV) SQ PRN (06:46)
[2018-08-05] MEDS ORDERED: TERBUTALINE 1 MG/ML VIAL SQ PRN (06:46)
[2018-08-05] MEDS ORDERED: METHYLERGONOVINE 0.2 MG/ML 1 ML AMP IM PRN (06:46)
[2018-08-05] MEDS ORDERED: OXYTOCIN 30 UNITS/500 ML NS 30 UNIT in SALINE 1 500ML.BAG IV SCH (07:00)
[2018-08-05] MEDS ORDERED: LACTATED RINGERS 1,000 ML IV SCH (07:00)
[2018-08-05 07:14] LABS: Basophils % (A) 0 %; Eosinophils # (A) 0.2 k/uL (0-0.7); Eosinophils % (A) 2 %; HCT 42.1 % (34.0-46.0); HGB 13.9 gm/dL (11.4-16.0); Lymphocytes # (A) 1.8 k/uL (1.0-4.8); Lymphocytes % (A) 15 %; MCH 29.4 pg (25.0-35.0); MCV 89.2 fL (80.0-100.0); Mean Platelet Volume 8.5; Monocytes # (A) 0.8 k/uL (0-1.0); Monocytes % (A) 7 %; Neutrophils # (A) 8.8 k/uL (1.3-7.7); Neutrophils % (A) 74 %; Platelet Count 202 k/uL (150-450); RBC 4.72 m/uL (3.80-5.40); RDW 15.3 % (11.5-15.5); WBC 11.9 k/uL (4.0-11.0)
[2018-08-05 08:28] VITALS: BMI 51.0
--- NOTE | 2018-08-05 09:17 | P.HPOB ---
History of Present Illness H&P Date: 08/05/18 Chief Complaint: Induction of labor 22-year-old presents at 40 weeks for induction of labor. Her cervix is 3 cm dilated, 70% effaced, -2 station. She is not august. heart tones are 135 with moderate variability and reactive, no decelerations, category 1 t racing. Review of Systems All systems: negative Constitutional: Denies chills, Denies fever Eyes: denies blurred vision, denies pain Ears, nose, mouth and throat: Denies headache, Denies sore throat Cardiovascular: Denies chest pain, Denies shortness of breath Respiratory: Denies cough Gastrointestinal: Denies abdominal pain, Denies diarrhea, Denies nausea, Denies vomiting Genitourinary: Denies dysuria, Denies hematuria Musculoskeletal: Denies myalgias Integumentary: Denies pruritus, Denies rash Neurological: Denies numbness, Denies weakness Psychiatric: Denies anxiety, Denies depression Endocrine: Denies fatigue, Denies weight change Past Medical History Past Medical History: Seizure Disorder Additional Past Medical History / Comment(s): epilipsy last 2 yrs ago. Obstetric history: She's had 2 previous vaginal deliveries, this is her third . She's had care with me since 27 weeks gestation. Blood type is O+, antibodies negative, rubella immune, RPR nonreactive, hepatitis B negative, HIV nonreactive, toxoplasmosis negative. Normal 1 hour glucose tolerance test, GBS negative. History of Any Multi-Drug Resistant Organisms: None Reported Past Surgical History: No Surgical Hx Reported Additional Past Surgical History / Comment(s): wisdom teeth Past Anesthesia/Blood Transfusion Reactions: No Reported Reaction Past Psychological History: ADD/ADHD, Anxiety Smoking Status: Never smoker Past Alcohol Use History: None Reported Past Drug Use History: Marijuana - Past Family History Mother Family Medical History: No Reported History Medications and Allergies Home Medications Medication Instructions Recorded Confirmed Type Frn-Upka-Kbpkn Acid 1 cap PO HS 03/17/17 08/05/18 History [-U Capsule (formulary)] Allergies Allergy/AdvReac Type Severity Reaction Status Date / Time No Known Allergies Allergy Verified 08/17/17 16:22 Exam Osteopathic Statement: *. No significant issues noted on an osteopathic structural exam other than those noted in the History and Physical/Consult. Vital Signs Temp Pulse Resp BP Pulse Ox 08/05/18 06:44 96 F L 100 16 129/61 97 Intake and Output 08/04/18 08/05/18 08/05/18 22:59 06:59 14:59 Other: Weight 130.635 kg Heart: Regular rate and rhythm Lungs: Clear to auscultation bilaterally Abdomen: Soft, nontender Extremities: Negative Homans sign Results Result Diagrams: 08/05/18 06:51 Abnormal Lab Results - Last 24 Hours (Table) 08/05/18 Range/Units 06:51 WBC 11.9 H (4.0-11.0) k/uL Neutrophils # 8.8 H (1.3-7.7) k/uL Assessment and Plan (1) Normal labor Current Visit: Yes Status: Acute Code(s): O80 - ENCOUNTER FOR FULL-TERM UNCOMPLICATED DELIVERY; Z37.9 - OUTCOME OF DELIVERY, UNSPECIFIED SNOMED Code(s): 75959629 Plan: 1. induction of labor with amniotomy and pitocin 2. anticipate normal vaginal delivery
[2018-08-05] MEDS ORDERED: BUTORPHANOL 1 MG/ML 1 ML VIAL IV PRN (09:57)
[2018-08-05] MEDS ORDERED: SODIUM CHLORIDE 0.9% 100 ML BAG ONE (11:16)
[2018-08-05] MEDS ORDERED: ROPIVACAINE 5MG/ML 20ML VIAL ONE (11:16)
[2018-08-05] MEDS ORDERED: fentaNYL (PF) 50 MCG/ML 5 ML AMP ONE (11:16)
[2018-08-05] MEDS ORDERED: BENZOCAINE/MENTHOL SPRAY 1 GM/SPRAY AEROSOL TOPICAL PRN (13:42)
[2018-08-05] MEDS ORDERED: diphenhydrAMINE 25 MG CAP PO PRN (13:42)
[2018-08-05] MEDS ORDERED: LANOLIN CREAM 5 GM TUBE TOPICAL PRN (13:42)
[2018-08-05] MEDS ORDERED: diphenhydrAMINE 50 MG CAP PO PRN (13:42)
[2018-08-05] MEDS ORDERED: ZOLPIDEM 5 MG TAB PO PRN (13:42)
[2018-08-05] MEDS ORDERED: SIMETHICONE 80 MG CHEWABLE PO PRN (13:42)
[2018-08-05] MEDS ORDERED: HYDROCORTISONE 2.5% RECTAL CREAM 30 GM TUBE RECTAL PRN (13:42)
[2018-08-05] MEDS ORDERED: diphenhydrAMINE 50 MG/ML 1 ML VIAL IVP PRN ×2 (13:42)
[2018-08-05] MEDS ORDERED: WITCH HAZEL 1 EACH MED..PAD TOPICAL PRN (13:42)
[2018-08-05] MEDS ORDERED: OXYTOCIN 20 UNITS/1000 ML NS 1,000 ML IV SCH (13:45)
--- NOTE | 2018-08-05 13:47 | P.PROBDLV ---
Vaginal Delivery Note - . Vaginal Delivery Note: 22-year-old presents at 40 weeks for induction of labor. Her cervix is 3 cm dilated, 70% effaced, -2 station. She is not august. heart tones are 135 with moderate variability and reactive, no decelerations, category 1 tracing. Pitocin was started. Amniotomy performed at 9:04 AM clear fluid noted. When she was 5 cm dilated she got an epidural and was comfortable but feeling pressure. Her cervix was completely dilated at 1317. She pushed, and delivered a viable male over intact perineum under epidural anesthesia at 1332. Head delivered OA, nuchal cord 1 easily reduced, anterior shoulder which was the right shoulder attempted to be delivered on the first push with gentle downward guidance. When the shoulder did not free easily, I attempted to deliver the posterior shoulder which did not deliver, and then I attempted to deliver the anterior shoulder again with gentle downward guidance and it came free without incident. The posterior shoulder was then delivered and the rest of body. Nose and mouth bulb suctioned, cord clamped and cut, infant placed mother's abdomen. Apgars 8, 9, weight 8 lbs. 2 oz. Placenta delivered spontaneously, intact with three-vessel cord at 1335. Vagina, cervix, and perineum were inspected, no lacerations noted. Estimated blood loss 200 mL. Mother and baby in stable condition.
[2018-08-05] MEDS: IBUPROFEN 600 MG TAB PO PRN ×2 (14:13→21:14)
[2018-08-05] MEDS: ACETAMINOPHEN TAB 325 MG TAB PO PRN (17:52)
[2018-08-05] MEDS: SENNOSIDES-DOCUSATE SODIUM 1 EACH TAB PO SCH (21:14)
[2018-08-06] MEDS: ACETAMINOPHEN TAB 325 MG TAB PO PRN ×2 (00:14→07:44)
[2018-08-06] MEDS: IBUPROFEN 600 MG TAB PO PRN ×2 (03:44→12:26)
[2018-08-06 06:33] LABS: Basophils % (A) 0 %; Eosinophils # (A) 0.2 k/uL (0-0.7); Eosinophils % (A) 2 %; HCT 38.9 % (34.0-46.0); Lymphocytes % (A) 18 %; MCH 30.2 pg (25.0-35.0); MCHC 33.4 g/dL (31.0-37.0); MCV 90.3 fL (80.0-100.0); Mean Platelet Volume 8.7; Monocytes # (A) 0.8 k/uL (0-1.0); Monocytes % (A) 7 %; Neutrophils # (A) 7.8 k/uL (1.3-7.7); Neutrophils % (A) 70 %; Platelet Count 178 k/uL (150-450); RBC 4.31 m/uL (3.80-5.40); RDW 15.4 % (11.5-15.5); WBC 11.1 k/uL (4.0-11.0)
[2018-08-06] MEDS: SENNOSIDES-DOCUSATE SODIUM 1 EACH TAB PO SCH (07:44)
[2018-08-06 08:41] VITALS: PULSE 88
[2018-08-06 16:56] VITALS: BP 108/69; RESP 16; TEMP 98.4
== END 2018-08-06 16:35 | disposition home or self-care (01) | DRG 806 ==
LOC: 4FBP 08-05 06:26
PROVIDERS: ADMIT Obstetrics & Gynecology; ATTEND Obstetrics & Gynecology
PROC: 10E0XZZ Delivery of Products of Conception, External Approach (ICD-10-PCS; principal; 2018-08-05)
PROC: 00HU33Z Insertion of Infusion Device into Spinal Canal, Percutaneous Approach (ICD-10-PCS; 2018-08-05)
PROC: 3E0R3BZ Introduction of Anesthetic Agent into Spinal Canal, Percutaneous Approach (ICD-10-PCS; 2018-08-05)
PROC: 3E033VJ Introduction of Other Hormone into Peripheral Vein, Percutaneous Approach (ICD-10-PCS; 2018-08-05)
PROC: 10907ZC Drainage of Amniotic Fluid, Therapeutic from Products of Conception, Via Natural or Artificial Opening (ICD-10-PCS; 2018-08-05)
DX: O69.81X0 Labor and delivery complicated by cord around neck, without compression, not applicable or unspecified (principal); O99.354 Diseases of the nervous system complicating childbirth; Z37.0 Single live birth; O99.344 Other mental disorders complicating childbirth; G40.909 Epilepsy, unspecified, not intractable, without status epilepticus; F90.9 Attention-deficit hyperactivity disorder, unspecified type; F41.9 Anxiety disorder, unspecified; Z3A.40 40 weeks gestation of pregnancy; Z79.899 Other long term (current) drug therapy
CPT/HCPCS: 85025; 86850; 86900; 86901

== ENCOUNTER 2019-04-25 23:28 | Emergency (ER) | payer OTHER ==
[2019-04-25] MEDS ORDERED: SODIUM CHLORIDE 0.9% 1,000 ML IV STA (23:34)
[2019-04-25 23:37] VITALS: TEMP 98.5
--- NOTE | 2019-04-25 23:45 | ED ---
Seizure HPI - General Chief Complaint: Seizure Stated Complaint: seizure Time Seen by Provider: 04/25/19 23:28 Source: patient, EMS, RN notes reviewed Mode of arrival: EMS Limitations: no limitations - History of Present Illness Initial Comments: This is a 23-year-old female history of seizure disorder migraine headaches who states she was drawing a bath prior to arrival when she had seizure. Per paramedics it was delivered typical seizures however she did fall into the bathtub. She complains of pain or trauma where she bit her tongue she has some abrasions to her chin she complains of a frontal headache no neck pain loss of function to her upper or lower extremities feeling medication she is on his Klonopin. She does state that she is very stressed out. No fevers chills nausea vomiting sweats no cough or phlegm production no dysuria hematuria she does take Klonopin 0.5 mg once a day. MD Complaint: seizure - Related Data Home Medications Medication Instructions Recorded Confirmed Gwt-Aaei-Ckirp Acid 1 cap PO HS 03/17/17 08/05/18 [-U Capsule (formulary)] Previous Rx's Medication Instructions Recorded Ibuprofen [Motrin] 600 mg PO Q6HR PRN #30 tab 08/06/18 Allergies Allergy/AdvReac Type Severity Reaction Status Date / Time No Known Allergies Allergy Verified 08/17/17 16:22 Review of Systems ROS Statement: Those systems with pertinent positive or pertinent negative responses have been documented in the HPI. ROS Other: All systems not noted in ROS Statement are negative. Past Medical History Past Medical History: Seizure Disorder Additional Past Medical History / Comment(s): epilipsy last 2 yrs ago. Obstetric history: She's had 2 previous vaginal deliveries, this is her third . She's had care with wi since 27 weeks gestation. Blood type is O+, antibodies negative, rubella immune, RPR nonreactive, hepatitis B negative, HIV nonreactive, toxoplasmosis negative. Normal 1 hour glucose tolerance test, GBS negative. History of Any Multi-Drug Resistant Organisms: None Reported Past Surgical History: No Surgical Hx Reported Additional Past Surgical History / Comment(s): wisdom teeth Past Anesthesia/Blood Transfusion Reactions: No Reported Reaction Past Psychological History: Anxiety Smoking Status: Never smoker Past Alcohol Use History: None Reported Past Drug Use History: Marijuana - Past Family History Mother Family Medical History: No Reported History General Exam - General Exam Comments Initial Comments: This is a well-developed well-nourished awake alert oriented 3 female she does demonstrate a Forsyth Coma Scale of 15. She does states she is under a lot of stress and was initially tearful. She did decline talking to EPS Limitations: no limitations General appearance: alert, anxious Head exam: Present: atraumatic, normocephalic, normal inspection Eye exam: Present: normal appearance, PERRL, EOMI. Absent: scleral icterus, conjunctival injection, periorbital swelling ENT exam: Present: mucous membranes moist, other (Rate is seen to the lateral tongue bilaterally no active bleeding at this time. Additionally there is some abrasion seen over the chin noWounds noted no step-off or crepitation) Neck exam: Present: normal inspection, full ROM, other (No stridor JVD or bruits). Absent: tenderness, meningismus, lymphadenopathy Respiratory exam: Present: normal lung sounds bilaterally. Absent: respiratory distress, wheezes, rales, rhonchi, stridor Cardiovascular Exam: Present: regular rate, normal rhythm, normal heart sounds. Absent: systolic murmur, diastolic murmur, rubs, gallop, clicks GI/Abdominal exam: Present: soft, normal bowel sounds. Absent: distended, tenderness, guarding, rebound, rigid Extremities exam: Present: normal inspection, full ROM, normal capillary refill. Absent: tenderness, pedal edema, joint swelling, calf tenderness Back exam: Present: normal inspection Neurological exam: Present: alert, oriented X3, CN II-XII intact Psychiatric exam: Present: normal affect, normal mood Skin exam: Present: warm, dry, intact, normal color. Absent: rash Course Vital Signs 04/25/19 23:30 Temperature 98.5 F Pulse Rate 89 Respiratory 18 Rate Blood Pressure 128/86 O2 Sat by Pulse 97 Oximetry Medical Decision Making - Medical Decision Making I did discuss findings with patient and her significant other. Patient is awake alert oriented 3 Forsyth Coma Scale 15. She does complain still of a slight headache she was offered medication and while at this time take some. The patient currently is on Klonopin 0.5 mg once a day this was increased about 2 weeks ago this time we will after discussion increase her to twice a day dosing with 0.5 mg in morning 0.25 mg in the evening. She is a follow-up with her doctor as soon as possible and return if any problems. - Lab Data Result diagrams: 04/25/19 23:35 04/25/19 23:25 Lab Results 04/25/19 04/25/19 Range/Units 23:25 23:35 WBC 10.0 (3.8-10.6) k/uL RBC 5.05 (3.80-5.40) m/uL Hgb 15.2 (11.4-16.0) gm/dL Hct 45.3 (34.0-46.0) % MCV 89.8 (80.0-100.0) fL MCH 30.1 (25.0-35.0) pg MCHC 33.6 (31.0-37.0) g/dL RDW 13.3 (11.5-15.5) % Plt Count 202 (150-450) k/uL Neutrophils % 61 % Lymphocytes % 30 % Monocytes % 5 % Eosinophils % 1 % Basophils % 0 % Neutrophils # 6.1 (1.3-7.7) k/uL Lymphocytes # 3.0 (1.0-4.8) k/uL Monocytes # 0.5 (0-1.0) k/uL Eosinophils # 0.1 (0-0.7) k/uL Basophils # 0.0 (0-0.2) k/uL Sodium 138 (137-145) mmol/L Potassium 3.9 (3.5-5.1) mmol/L Chloride 103 (98-107) mmol/L Carbon Dioxide 22 (22-30) mmol/L Anion Gap 13 mmol/L BUN 13 (7-17) mg/dL Creatinine 0.75 (0.52-1.04) mg/dL Est GFR (CKD-EPI)AfAm >90 (>60 ml/min/1.73 sqM) Est GFR (CKD-EPI)NonAf >90 (>60 ml/min/1.73 sqM) Glucose 87 (74-99) mg/dL Calcium 9.2 (8.4-10.2) mg/dL Magnesium 2.0 (1.6-2.3) mg/dL Total Bilirubin 0.4 (0.2-1.3) mg/dL AST 27 (14-36) U/L ALT 24 (4-34) U/L Alkaline Phosphatase 70 (38-126) U/L Creatine Kinase 56 (30-135) U/L Total Protein 7.2 (6.3-8.2) g/dL Albumin 4.6 (3.5-5.0) g/dL - EKG Data -: EKG Interpreted by Me EKG shows normal: sinus rhythm (EKG shows sinus rhythm of 83. Interval 156 QRS duration 98 QT since QTC 388/455 st-t wave changes evidence of a RSR prime or QR pattern in V1) - Radiology Data Radiology results: report reviewed (I did review the imaging and report no acute findings.), image reviewed Disposition Clinical Impression: Generalized seizure, Abrasion of tongue Disposition: HOME SELF-CARE Condition: Good Instructions (If sedation given, give patient instructions): Recurrent Seizures in Adults (ED) Additional Instructions: Increase the dosing of your Klonopin continue with 0.5 mg the morning and start 0.25 mg in the evening. Also follow-up with her doctor as soon as possible. Is patient prescribed a controlled substance at d/c from ED?: No Referrals: Bi Hall MD [Primary Care Provider] - 1-2 days
[2019-04-26 00:03] LABS: Basophils % (A) 0 %; Eosinophils # (A) 0.1 k/uL (0-0.7); Eosinophils % (A) 1 %; HCT 45.3 % (34.0-46.0); HGB 15.2 gm/dL (11.4-16.0); Lymphocytes % (A) 30 %; MCH 30.1 pg (25.0-35.0); MCHC 33.6 g/dL (31.0-37.0); MCV 89.8 fL (80.0-100.0); Mean Platelet Volume 9.5; Monocytes # (A) 0.5 k/uL (0-1.0); Monocytes % (A) 5 %; Neutrophils # (A) 6.1 k/uL (1.3-7.7); Neutrophils % (A) 61 %; Platelet Count 202 k/uL (150-450); RBC 5.05 m/uL (3.80-5.40); RDW 13.3 % (11.5-15.5)
--- NOTE | 2019-04-26 00:06 | CT ---
EXAMINATION TYPE: CT brain wo con DATE OF EXAM: 04/25/2019 COMPARISON: 12:30 14 HISTORY: seizure CT DLP: 1055.4 mGycm Automated exposure control for dose reduction was used. Ventricles and sulci appear normal. There is no mass effect nor midline shift. There is no sign of in tracranial hemorrhage. The calvarium is intact. IMPRESSION: Negative unenhanced head CT scan. No change.
[2019-04-26 00:12] LABS: ALT 24 U/L (4-34); AST 27 U/L (14-36); African American GFR (CKD) >90 (>60 ml/min/1.73 sqM); Albumin 4.6 g/dL (3.5-5.0); Alkaline Phosphatase 70 U/L (38-126); Anion Gap 13 mmol/L; Blood Urea Nitrogen 13 mg/dL (7-17); Calcium 9.2 mg/dL (8.4-10.2); Carbon Dioxide 22 mmol/L (22-30); Chloride 103 mmol/L (98-107); Creatine Kinase 56 U/L (30-135); Glucose 87 mg/dL (74-99); Non-African American GFR(CKD) >90 (>60 ml/min/1.73 sqM); Potassium 3.9 mmol/L (3.5-5.1); Sodium 138 mmol/L (137-145); Total Bilirubin 0.4 mg/dL (0.2-1.3); Total Protein 7.2 g/dL (6.3-8.2)
[2019-04-26] MEDS ORDERED: KETOROLAC 30 MG/ML 1 ML VIAL IVP STA (00:39)
[2019-04-26] MEDS ORDERED: clonazePAM 0.5 MG TAB PO STA (00:39)
[2019-04-26 00:51] VITALS: BP 122/78; PULSE 70; RESP 16
== END 2019-04-26 01:02 | disposition home or self-care (01) ==
LOC: EC 23:28
DX: G40.409 Other generalized epilepsy and epileptic syndromes, not intractable, without status epilepticus (principal); S00.512A Abrasion of oral cavity, initial encounter; R51 Headache; W18.2XXA Fall in (into) shower or empty bathtub, initial encounter; Y93.89 Activity, other specified
CPT/HCPCS: 36415; 93005; 80053; 82550; 83735; 85025; 70450; 96374; 96361; 99285; J1885

== ENCOUNTER 2020-01-21 06:52 | Day surgery (SDC) | payer OTHER ==
--- NOTE | 2020-01-20 13:49 | P.HPOB ---
History of Present Illness H&P Date: 01/20/20 Chief Complaint: Family Planning 24 year old presents for laparoscopic tubal ligation. Review of Systems All systems: negative Constitutional: Denies chills, Denies fever Eyes: denies blurred vision, denies pain Ears, nose, mouth and throat: Denies headache, Denies sore throat Cardiovascular: Denies chest pain, Denies shortness of breath Respiratory: Denies cough Gastrointestinal: Denies abdominal pain, Denies diarrhea, Denies nausea, Denies vomiting Genitourinary: Denies dysuria, Denies hematuria Musculoskeletal: Denies myalgias Integumentary: Denies pruritus, Denies rash Neurological: Denies numbness, Denies weakness Psychiatric: Denies anxiety, Denies depression Endocrine: Denies fatigue, Denies weight change Past Medical History Past Medical History: Seizure Disorder Additional Past Medical History / Comment(s): SEIZURE DISORDER , LAST SEIZURE MORE THAN 2 yrs ago. History of Any Multi-Drug Resistant Organisms: None Reported Past Surgical History: No Surgical Hx Reported Additional Past Surgical History / Comment(s): wisdom teeth Past Anesthesia/Blood Transfusion Reactions: No Reported Reaction Additional Past Anesthesia/Blood Transfusion Reaction / Comment(s): HAS NOT HAD GENERAL ANESTHESIA. Past Psychological History: Anxiety Smoking Status: Vaper Past Alcohol Use History: None Reported, Occasional Past Drug Use History: Marijuana - Past Family History Mother Family Medical History: No Reported History Medications and Allergies Home Medications Medication Instructions Recorded Confirmed Type Ibuprofen [Motrin] 600 mg PO Q6HR PRN #30 tab 08/06/18 01/19/20 Rx Allergies Allergy/AdvReac Type Severity Reaction Status Date / Time No Known Allergies Allergy Verified 01/19/20 13:37 Exam Osteopathic Statement: *. No significant issues noted on an osteopathic structural exam other than those noted in the History and Physical/Consult. Heart: RRR Lungs: CTAB Abdomen: soft, nontender Extremeties: neg roman's Assessment and Plan (1) Family planning Status: Acute Code(s): Z30.09 - ENCOUNTER FOR OTH GENERAL CNSL AND ADVICE ON CONTRACEPTION SNOMED Code(s): 550345365 Plan: 1. laparoscopic tubal ligation
[~2020-01-21 06:52] MED LIST: DEXAMETHASONE SOD PHOSPHATE 4 MG/ML 1 ML VIAL IV ONE; LACTATED RINGERS 1,000 ML IV SCH; LIDOCAINE 1% (10MG/ML) FOR IV START INTRADERMA PRN; ONDANSETRON 4 MG/2 ML VIAL IVP ONE; Pre Op ABX Message 1 EACH MISC MISCELLANE ONE
[2020-01-21] MEDS ORDERED: fentaNYL (PF) 50 MCG/ML 2 ML AMP ONE (07:49)
[2020-01-21] MEDS ORDERED: PROPOFOL 10 MG/ML 20 ML VIAL IV ONE (07:49)
[2020-01-21] MEDS ORDERED: SUCCINYLCHOLINE CHLORIDE VIAL 200 MG/10 ML VIAL IV ONE (07:49)
[2020-01-21] MEDS ORDERED: LIDOCAINE 1% INJ 10MG/ML (20 ML MDV) ONE (07:49)
[2020-01-21] MEDS ORDERED: KETOROLAC 15 MG/ML 1 ML VIAL ONE (07:49)
[2020-01-21] MEDS ORDERED: MIDAZOLAM 2 MG/2 ML VIAL ONE (07:49)
[2020-01-21] MEDS ORDERED: BUPIVACAINE (PF) 0.25% 30 ML VIAL SQ ONE (08:16)
--- NOTE | 2020-01-21 08:39 | P.OP ---
Date of Procedure: 01/21/20 Preoperative Diagnosis: 1. Family planning Postoperative Diagnosis: 1. family planning Procedure(s) Performed: Laparoscopic tubal ligation Anesthesia: MINDY Surgeon: Jane Clemente Estimated Blood Loss (ml): 2 IV fluids (ml): 300 Urine output (ml): 10 Pathology: none sent Condition: stable Disposition: PACU Operative Findings: Normal uterus that sounded to 9 cm, normal tubes, normal ovaries. Description of Procedure: Patient was taken to the operating room where general anesthesia was obtained without difficulty. She was prepped and draped in normal sterile fashion in the dorsal lithotomy position, legs placed in the Rui stirrups. Bladder drained of all urine. Sabinal speculum placed in the vagina and the anterior lip the cervix was grasped with single-tooth tenaculum. The uterus is sounded to 9 cm and the kroner manipulator was placed. Attention was then turned to the abdomen and gloves were changed. A 10 mm infraumbilical incision was made the scalpel and 10 mm optical trocar was placed under direct visualization. A 5 mm suprapubic Incision was made and a 5 mm optical trocar was placed under direct visualization. Survey of the pelvis revealed normal uterus tubes and ovaries. The left fallopian tube was grasped with a Kleppinger and fulgurated 2-3 cm on this side in the ampullar portion. The right fallopian tube was grasped with a Kleppinger and fulgurated 2-3 cm in the ampullar portion. All instruments were then removed from the abdomen and vagina. The 10 mm infraumbilical incision was closed with 0 Vicryl and the fascial layer and then 4-0 Vicryl in a subcuticular fashion. The 5 mm incision was closed with 4-0 Vicryl in a subcuticular fashion. Patient tolerated procedure well, sponge and instrument counts correct 2 and she was taken to recovery room in stable condition.
[2020-01-21] MEDS: MEPERIDINE 50 MG/ML SYRINGE IVP ONE ×2 (08:42→08:50)
[2020-01-21 08:45] VITALS: RESP 16; TEMP 97
[2020-01-21 09:41] VITALS: BP 124/83; PULSE 65
== END 2020-01-21 10:02 | disposition home or self-care (01) ==
LOC: OR 06:52
PROVIDERS: ATTEND Obstetrics & Gynecology
DX: Z30.2 Encounter for sterilization (principal); F41.9 Anxiety disorder, unspecified; G40.909 Epilepsy, unspecified, not intractable, without status epilepticus; Z98.818 Other dental procedure status; F17.290 Nicotine dependence, other tobacco product, uncomplicated
CPT/HCPCS: 81025; 58670; J2250; J0330; J1100; J2175; J2405; J2001; J3010; J1885; J2704

== ENCOUNTER 2020-02-10 16:09 | Emergency (ER) | payer OTHER ==
[2020-02-10 16:42] VITALS: BP 128/84; PULSE 73; RESP 18; TEMP 98.9
== END 2020-02-10 19:00 ==
LOC: EC 16:09
DX: S61.411A Laceration without foreign body of right hand, initial encounter (principal); W10.9XXA Fall (on) (from) unspecified stairs and steps, initial encounter; Z53.21 Procedure and treatment not carried out due to patient leaving prior to being seen by health care provider
CPT/HCPCS: 99499

== ENCOUNTER 2020-09-05 18:53 | Emergency (ER) | payer OTHER ==
[2020-09-05 19:02] VITALS: BP 102/70; PULSE 83; RESP 16; TEMP 98.8
[2020-09-05] MEDS ORDERED: KETOROLAC 15 MG/ML 1 ML VIAL IVP STA (19:17)
[2020-09-05] MEDS ORDERED: diphenhydrAMINE 50 MG/ML 1 ML VIAL IVP STA (19:17)
[2020-09-05] MEDS ORDERED: METOCLOPRAMIDE 5 MG/ML 2 ML VIAL IVP STA (19:17)
[2020-09-05] MEDS ORDERED: SODIUM CHLORIDE 0.9% 1,000 ML IV STA (19:17)
[2020-09-05 19:27] LABS: Glucose,Whole Blood 95 mg/dL (75-99)
--- NOTE | 2020-09-05 19:51 | ED ---
Seizure HPI - General Chief Complaint: Seizure Stated Complaint: Seizures/headache Source: patient Mode of arrival: EMS Limitations: no limitations - History of Present Illness Initial Comments: 24-year-old female with history of epilepsy and migraines presents to the emergency department with a chief complaint of a seizure. Patient reports she had his seizure last night lasting approximately 15 minutes according to the boyfriend. States this was a tonic-clonic seizure. States over the last 2 weeks she's had 2 seizures. States them most recent prior to that was in . States used to be on antiepileptic medications but she stopped taking them. She also reports having a migraine, left-sided along with nausea but no vomiting. She states this feels like her typical migraine headache but is lasting more than usual. Not the worst headache of her life. She also reports photosensitivity but denies any visual changes, chest pain or shortness of breath, one-sided weakness or paresthesias or any gait instability. - Related Data Previous Rx's Medication Instructions Recorded Ibuprofen [Motrin] 600 mg PO Q6HR PRN #30 tab 08/06/18 Acetaminophen-Codeine 300-30mg 2 tab PO Q6H PRN #20 tablet 01/21/20 [Tylenol #3] Ibuprofen [Motrin] 600 mg PO Q6HR PRN #30 tab 01/21/20 Allergies Allergy/AdvReac Type Severity Reaction Status Date / Time No Known Allergies Allergy Verified 09/05/20 19:02 Review of Systems ROS Statement: Those systems with pertinent positive or pertinent negative responses have been documented in the HPI. ROS Other: All systems not noted in ROS Statement are negative. Past Medical History Past Medical History: Seizure Disorder Additional Past Medical History / Comment(s): SEIZURE DISORDER , LAST SEIZURE MORE THAN 2 yrs ago. History of Any Multi-Drug Resistant Organisms: None Reported Past Surgical History: No Surgical Hx Reported Additional Past Surgical History / Comment(s): wisdom teeth Past Anesthesia/Blood Transfusion Reactions: No Reported Reaction Additional Past Anesthesia/Blood Transfusion Reaction / Comment(s): HAS NOT HAD GENERAL ANESTHESIA. Past Psychological History: Anxiety Smoking Status: Vaper Past Alcohol Use History: None Reported, Occasional Past Drug Use History: Marijuana - Past Family History Mother Family Medical History: No Reported History General Exam Limitations: no limitations General appearance: alert, in no apparent distress, obese Head exam: Present: atraumatic, normal inspection Eye exam: Present: normal appearance, PERRL, EOMI Pupils: Present: normal accommodation ENT exam: Present: normal exam, normal oropharynx (Trauma to the tongue), mucous membranes moist, TM's normal bilaterally, normal external ear exam Neck exam: Present: normal inspection, full ROM. Absent: tenderness, lymphadenopathy Respiratory exam: Present: normal lung sounds bilaterally. Absent: respiratory distress, wheezes, rales, rhonchi, stridor Cardiovascular Exam: Present: regular rate, normal rhythm, normal heart sounds. Absent: systolic murmur GI/Abdominal exam: Present: soft. Absent: distended, tenderness, guarding, rebound Extremities exam: Present: normal inspection, full ROM, normal capillary refill. Absent: tenderness, pedal edema, joint swelling, calf tenderness Back exam: Present: normal inspection, full ROM. Absent: tenderness, CVA tenderness (R), CVA tenderness (L) Neurological exam: Present: alert, oriented X3, CN II-XII intact, normal gait Psychiatric exam: Present: normal affect, normal mood Skin exam: Present: warm, dry, intact, normal color Course Vital Signs 09/05/20 18:58 Temperature 98.8 F Pulse Rate 83 Respiratory 16 Rate Blood Pressure 102/70 O2 Sat by Pulse 97 Oximetry Medical Decision Making - Medical Decision Making 24-year-old female with history of epilepsy migrants presents to emergency Department with a chief complaint of a seizure. On physical examination, no acute findings. No focal neural deficits. Laboratory work was initiated, within about 1 hour of arrival, patient decided to sign out AMA. States she feels anxious and does not want to stay here. I did offer anxiolytics, she declined. - Lab Data Result diagrams: 09/05/20 19:34 09/05/20 19:34 Lab Results 09/05/20 09/05/20 09/05/20 Range/Units 19:25 19:34 19:34 WBC 13.2 H (3.8-10.6) k/uL RBC 4.84 (3.80-5.40) m/uL Hgb 15.1 (11.4-16.0) gm/dL Hct 43.4 (34.0-46.0) % MCV 89.8 (80.0-100.0) fL MCH 31.2 (25.0-35.0) pg MCHC 34.7 (31.0-37.0) g/dL RDW 13.0 (11.5-15.5) % Plt Count 216 (150-450) k/uL MPV 8.7 Neutrophils % 68 % Lymphocytes % 23 % Monocytes % 6 % Eosinophils % 2 % Basophils % 0 % Neutrophils # 9.0 H (1.3-7.7) k/uL Lymphocytes # 3.0 (1.0-4.8) k/uL Monocytes # 0.7 (0-1.0) k/uL Eosinophils # 0.2 (0-0.7) k/uL Basophils # 0.0 (0-0.2) k/uL Sodium (137-145) mmol/L Potassium (3.5-5.1) mmol/L Chloride (98-107) mmol/L Carbon Dioxide (22-30) mmol/L Anion Gap mmol/L BUN (7-17) mg/dL Creatinine (0.52-1.04) mg/dL Est GFR (CKD-EPI)AfAm (>60 ml/min/1.73 sqM) Est GFR (CKD-EPI)NonAf (>60 ml/min/1.73 sqM) Glucose (74-99) mg/dL POC Glucose (mg/dL) 95 (75-99) mg/dL POC Glu Epic Radiant Analyst ID Yessy Balbuena Calcium (8.4-10.2) mg/dL Magnesium (1.6-2.3) mg/dL Total Bilirubin (0.2-1.3) mg/dL AST (14-36) U/L ALT (4-34) U/L Alkaline Phosphatase (38-126) U/L Total Protein (6.3-8.2) g/dL Albumin (3.5-5.0) g/dL Urine Color Yellow Urine Appearance Clear (Clear) Urine pH 5.5 (5.0-8.0) Ur Specific [place] 1.029 (1.001-1.035) Urine Protein Negative (Negative) Urine Glucose (UA) Negative (Negative) Urine Ketones Negative (Negative) Urine Blood Negative (Negative) Urine Nitrite Negative (Negative) Urine Bilirubin Negative (Negative) Urine Urobilinogen <2.0 (<2.0) mg/dL Ur Leukocyte Esterase Small H (Negative) Urine RBC 1 (0-5) /hpf Urine WBC 4 (0-5) /hpf Ur Squamous Epith Cells 7 H (0-4) /hpf Urine Bacteria Rare H (None) /hpf Urine Mucus Few H (None) /hpf 09/05/20 Range/Units 19:34 WBC (3.8-10.6) k/uL RBC (3.80-5.40) m/uL Hgb (11.4-16.0) gm/dL Hct (34.0-46.0) % MCV (80.0-100.0) fL MCH (25.0-35.0) pg MCHC (31.0-37.0) g/dL RDW (11.5-15.5) % Plt Count (150-450) k/uL MPV Neutrophils % % Lymphocytes % % Monocytes % % Eosinophils % % Basophils % % Neutrophils # (1.3-7.7) k/uL Lymphocytes # (1.0-4.8) k/uL Monocytes # (0-1.0) k/uL Eosinophils # (0-0.7) k/uL Basophils # (0-0.2) k/uL Sodium 138 (137-145) mmol/L Potassium 4.3 (3.5-5.1) mmol/L Chloride 103 (98-107) mmol/L Carbon Dioxide 28 (22-30) mmol/L Anion Gap 7 mmol/L BUN 13 (7-17) mg/dL Creatinine 0.69 (0.52-1.04) mg/dL Est GFR (CKD-EPI)AfAm >90 (>60 ml/min/1.73 sqM) Est GFR (CKD-EPI)NonAf >90 (>60 ml/min/1.73 sqM) Glucose 93 (74-99) mg/dL POC Glucose (mg/dL) (75-99) mg/dL POC Glu Epic Radiant Analyst ID Calcium 9.4 (8.4-10.2) mg/dL Magnesium 1.9 (1.6-2.3) mg/dL Total Bilirubin 0.2 (0.2-1.3) mg/dL AST 21 (14-36) U/L ALT 16 (4-34) U/L Alkaline Phosphatase 78 (38-126) U/L Total Protein 6.4 (6.3-8.2) g/dL Albumin 4.3 (3.5-5.0) g/dL Urine Color Urine Appearance (Clear) Urine pH (5.0-8.0) Ur Specific [place] (1.001-1.035) Urine Protein (Negative) Urine Glucose (UA) (Negative) Urine Ketones (Negative) Urine Blood (Negative) Urine Nitrite (Negative) Urine Bilirubin (Negative) Urine Urobilinogen (<2.0) mg/dL Ur Leukocyte Esterase (Negative) Urine RBC (0-5) /hpf Urine WBC (0-5) /hpf Ur Squamous Epith Cells (0-4) /hpf Urine Bacteria (None) /hpf Urine Mucus (None) /hpf - EKG Data EKG Comments: Sinus rhythm without acute ischemic changes Ventricular rate 81, P1 132, QRS 96, QTc 441. Disposition Clinical Impression: Seizure, Headache Disposition: Left Against Medical Advice Condition: Stable Instructions (If sedation given, give patient instructions): Recurrent Seizures in Adults (ED) Additional Instructions: Follow-up with her neurologist. Return to emergency department if symptoms worsen. Avoid driving. Is patient prescribed a controlled substance at d/c from ED?: No Referrals: Palmer Franklin MD [Primary Care Provider] - 1-2 days Adrian Huber MD [STAFF PHYSICIAN] - 1-2 days Time of Disposition: 19:51
[2020-09-05 20:04] LABS: Basophils % (A) 0 %; Eosinophils # (A) 0.2 k/uL (0-0.7); Eosinophils % (A) 2 %; HCT 43.4 % (34.0-46.0); HGB 15.1 gm/dL (11.4-16.0); Lymphocytes % (A) 23 %; MCH 31.2 pg (25.0-35.0); MCHC 34.7 g/dL (31.0-37.0); MCV 89.8 fL (80.0-100.0); Mean Platelet Volume 8.7; Monocytes # (A) 0.7 k/uL (0-1.0); Monocytes % (A) 6 %; Neutrophils % (A) 68 %; Platelet Count 216 k/uL (150-450); RBC 4.84 m/uL (3.80-5.40); WBC 13.2 k/uL (3.8-10.6)
[2020-09-05 20:12] LABS: ALT 16 U/L (4-34); AST 21 U/L (14-36); African American GFR (CKD) >90 (>60 ml/min/1.73 sqM); Albumin 4.3 g/dL (3.5-5.0); Alkaline Phosphatase 78 U/L (38-126); Anion Gap 7 mmol/L; Blood Urea Nitrogen 13 mg/dL (7-17); Calcium 9.4 mg/dL (8.4-10.2); Carbon Dioxide 28 mmol/L (22-30); Chloride 103 mmol/L (98-107); Glucose 93 mg/dL (74-99); Magnesium 1.9 mg/dL (1.6-2.3); Non-African American GFR(CKD) >90 (>60 ml/min/1.73 sqM); Potassium 4.3 mmol/L (3.5-5.1); Sodium 138 mmol/L (137-145); Total Bilirubin 0.2 mg/dL (0.2-1.3); Total Protein 6.4 g/dL (6.3-8.2)
[2020-09-05 20:19] LABS: Appearance,Urine Clear (Clear); Bacteria,Urine Rare /hpf; Bilirubin,Urine Negative (Negative); Blood,Urine Negative (Negative); Color,Urine Yellow; Glucose,Urine (UA) Negative (Negative); Ketones,Urine Negative (Negative); Leukocyte Esterase,Urine Small (Negative); Mucus,Urine Few /hpf; Nitrite,Urine Negative (Negative); PH, Urine 5.5 (5.0-8.0); Protein,Urine Negative (Negative); RBC,Urine 1 /hpf (0-5); Specific Gravity,Urine 1.029 (1.001-1.035); Squamous Epithelial Cell,Urine 7 /hpf (0-4); Urobilinogen,Urine <2.0 mg/dL (<2.0); WBC,Urine 4 /hpf (0-5)
== END 2020-09-05 19:56 | disposition left against medical advice (07) ==
LOC: EC 18:53
DX: G40.909 Epilepsy, unspecified, not intractable, without status epilepticus (principal); G43.909 Migraine, unspecified, not intractable, without status migrainosus; F41.9 Anxiety disorder, unspecified; F17.290 Nicotine dependence, other tobacco product, uncomplicated; F12.90 Cannabis use, unspecified, uncomplicated
CPT/HCPCS: 36415; 93005; 80053; 83735; 85025; 81001; 99284; 96374; 96375 ×2; J1200; J2765; J1885

== ENCOUNTER 2022-02-14 09:43 | Emergency (ER) | payer OTHER ==
[2022-02-14] MEDS ORDERED: SODIUM CHLORIDE 0.9% 1,000 ML IV STA (09:47)
[2022-02-14 09:50] VITALS: RESP 18
--- NOTE | 2022-02-14 09:58 | ED ---
General Adult HPI - General Chief complaint: Seizure Stated complaint: seizure Time Seen by Provider: 02/14/22 09:46 Source: patient Mode of arrival: EMS Limitations: no limitations - History of Present Illness Initial comments: 26-year-old female coming in to the ED via EMS for seizure. EMS reports patient was at work where she had a 2 minute seizure, was witnessed by the patient's boss. They report she had a 10 minute postictal phase. Upon arrival she complains of lightheadedness and headache. Patient does not recall other than, she is unsure if she hit her head. Denies anticoagulant use. She reports a history of seizures which is not take currently taking medications for, last seizure was about 3 months ago. Pt admits to occasional alcohol and marijuana use. - Related Data Previous Rx's Medication Instructions Recorded levETIRAcetam [Keppra] 500 mg PO Q12HR 14 Days #30 tab 02/14/22 Allergies Allergy/AdvReac Type Severity Reaction Status Date / Time No Known Allergies Allergy Verified 02/14/22 10:51 Review of Systems ROS Statement: Those systems with pertinent positive or pertinent negative responses have been documented in the HPI. ROS Other: All systems not noted in ROS Statement are negative. Past Medical History Past Medical History: Seizure Disorder Additional Past Medical History / Comment(s): SEIZURE DISORDER , LAST SEIZURE MORE THAN 2 yrs ago. History of Any Multi-Drug Resistant Organisms: None Reported Past Surgical History: No Surgical Hx Reported Additional Past Surgical History / Comment(s): wisdom teeth Past Anesthesia/Blood Transfusion Reactions: No Reported Reaction Additional Past Anesthesia/Blood Transfusion Reaction / Comment(s): HAS NOT HAD GENERAL ANESTHESIA. Past Psychological History: Anxiety Smoking Status: Vaper Past Alcohol Use History: None Reported, Occasional Past Drug Use History: Marijuana - Past Family History Mother Family Medical History: No Reported History General Exam Limitations: no limitations General appearance: alert, in no apparent distress Head exam: Present: atraumatic, normocephalic, normal inspection Eye exam: Present: normal appearance, PERRL, EOMI. Absent: scleral icterus, conjunctival injection, periorbital swelling ENT exam: Present: normal exam, mucous membranes moist Neck exam: Present: normal inspection. Absent: tenderness, meningismus, lymphadenopathy Respiratory exam: Present: normal lung sounds bilaterally. Absent: respiratory distress, wheezes, rales, rhonchi, stridor Cardiovascular Exam: Present: regular rate, normal rhythm, normal heart sounds. Absent: systolic murmur, diastolic murmur, rubs, gallop, clicks GI/Abdominal exam: Present: soft, normal bowel sounds. Absent: distended, tenderness, guarding, rebound, rigid Neurological exam: Present: alert, oriented X3, CN II-XII intact Psychiatric exam: Present: normal affect, normal mood Skin exam: Present: warm, dry, intact, normal color. Absent: rash Course Vital Signs 02/14/22 02/14/22 09:48 10:44 Temperature 98.2 F Pulse Rate 89 72 Respiratory 18 18 Rate Blood Pressure 129/73 O2 Sat by Pulse 96 97 Oximetry EKG Findings - EKG Comments: EKG Findings:: EKG performed at 10:02. Rate 80 bpm and NSR, CA interval 127, QRS 101 Medical Decision Making - Medical Decision Making 26-year-old female coming in for seizure. She was seen and evaluated had lab work and EKG performed in the ED. CBC and BMP came back within normal limits. Sh was given 1 L IV fluid symptomatic improvement, she had no seizure event while being treated here in the ED. I discussed in detail with the patient the importance of follow-up with primary and neurology. Given prescription for Keppra. All questions and concerns were addressed. Case discussed with Dr. Null. - Lab Data Result diagrams: 02/14/22 09:57 02/14/22 09:57 Lab Results 02/14/22 02/14/22 Range/Units 09:57 09:57 WBC 9.1 (3.8-10.6) k/uL RBC 5.02 (3.80-5.40) m/uL Hgb 15.3 (11.4-16.0) gm/dL Hct 45.3 (34.0-46.0) % MCV 90.4 (80.0-100.0) fL MCH 30.4 (25.0-35.0) pg MCHC 33.7 (31.0-37.0) g/dL RDW 12.8 (11.5-15.5) % Plt Count 187 (150-450) k/uL MPV 9.7 Neutrophils % 70 % Lymphocytes % 21 % Monocytes % 6 % Eosinophils % 2 % Basophils % 0 % Neutrophils # 6.4 (1.3-7.7) k/uL Lymphocytes # 1.9 (1.0-4.8) k/uL Monocytes # 0.5 (0-1.0) k/uL Eosinophils # 0.2 (0-0.7) k/uL Basophils # 0.0 (0-0.2) k/uL Sodium 138 (137-145) mmol/L Potassium 3.8 (3.5-5.1) mmol/L Chloride 107 (98-107) mmol/L Carbon Dioxide 21 L (22-30) mmol/L Anion Gap 10 mmol/L BUN 11 (7-17) mg/dL Creatinine 0.62 (0.52-1.04) mg/dL Est GFR (CKD-EPI)AfAm >90 (>60 ml/min/1.73 sqM) Est GFR (CKD-EPI)NonAf >90 (>60 ml/min/1.73 sqM) Glucose 103 H (74-99) mg/dL Calcium 8.9 (8.4-10.2) mg/dL Magnesium 2.0 (1.6-2.3) mg/dL Total Bilirubin 0.5 (0.2-1.3) mg/dL AST 23 (14-36) U/L ALT 27 (4-34) U/L Alkaline Phosphatase 75 (38-126) U/L Total Protein 6.5 (6.3-8.2) g/dL Albumin 4.3 (3.5-5.0) g/dL Disposition Clinical Impression: Generalized seizure Disposition: HOME SELF-CARE Condition: Stable Instructions (If sedation given, give patient instructions): Seizure/Epilepsy Discharge Instructions & Follow-Up, Recurrent Seizures in Adults (ED) Additional Instructions: Return to the ED if symptoms worsen or persist. Prescriptions: levETIRAcetam [Keppra] 500 mg PO Q12HR 14 Days #30 tab Is patient prescribed a controlled substance at d/c from ED?: No Referrals: Palmer Franklin MD [Primary Care Provider] - 1-2 days
[2022-02-14 10:07] LABS: Basophils % (A) 0 %; Eosinophils # (A) 0.2 k/uL (0-0.7); Eosinophils % (A) 2 %; HCT 45.3 % (34.0-46.0); HGB 15.3 gm/dL (11.4-16.0); Lymphocytes # (A) 1.9 k/uL (1.0-4.8); Lymphocytes % (A) 21 %; MCH 30.4 pg (25.0-35.0); MCHC 33.7 g/dL (31.0-37.0); MCV 90.4 fL (80.0-100.0); Mean Platelet Volume 9.7; Monocytes # (A) 0.5 k/uL (0-1.0); Monocytes % (A) 6 %; Neutrophils # (A) 6.4 k/uL (1.3-7.7); Neutrophils % (A) 70 %; Platelet Count 187 k/uL (150-450); RBC 5.02 m/uL (3.80-5.40); RDW 12.8 % (11.5-15.5); WBC 9.1 k/uL (3.8-10.6)
[2022-02-14 10:12] LABS: ALT 27 U/L (4-34); AST 23 U/L (14-36); African American GFR (CKD) >90 (>60 ml/min/1.73 sqM); Albumin 4.3 g/dL (3.5-5.0); Alkaline Phosphatase 75 U/L (38-126); Anion Gap 10 mmol/L; Blood Urea Nitrogen 11 mg/dL (7-17); Calcium 8.9 mg/dL (8.4-10.2); Carbon Dioxide 21 mmol/L (22-30); Chloride 107 mmol/L (98-107); Glucose 103 mg/dL (74-99); Non-African American GFR(CKD) >90 (>60 ml/min/1.73 sqM); Potassium 3.8 mmol/L (3.5-5.1); Sodium 138 mmol/L (137-145); Total Bilirubin 0.5 mg/dL (0.2-1.3); Total Protein 6.5 g/dL (6.3-8.2)
[2022-02-14 11:35] VITALS: BP 124/76; PULSE 76; TEMP 98.1
== END 2022-02-14 11:38 | disposition home or self-care (01) ==
LOC: EC 09:43
DX: G40.909 Epilepsy, unspecified, not intractable, without status epilepticus (principal); F41.9 Anxiety disorder, unspecified; F17.290 Nicotine dependence, other tobacco product, uncomplicated; F12.90 Cannabis use, unspecified, uncomplicated
CPT/HCPCS: 36415; 80053; 83735; 85025; 93005; 96360; 99284

== ENCOUNTER 2023-01-16 04:51 | Emergency (ER) | payer BC, OTHER ==
[2023-01-16 05:36] LABS: Glucose,Whole Blood 77 mg/dL (70-110)
--- NOTE | 2023-01-16 05:42 | ED ---
Seizure HPI - General Chief Complaint: Seizure Stated Complaint: Seizure Time Seen by Provider: 01/16/23 04:53 Source: patient, RN/MD, RN notes reviewed, old records reviewed Mode of arrival: wheelchair Limitations: no limitations - History of Present Illness Initial Comments: This is a 27-year-old female to the emergency department for evaluation. [facility] is safe for evaluation of seizure. Patient's brought to the ER under 20 she was found having a seizure and being unresponsive. Patient states she has history of seizure but does not take seizure medication usually has a seizure about once a year MD Complaint: seizure -: minutes(s) Description of Episode: loss of consciousness, tonic-clonic movement -: second(s) Witnessed: yes - by bystander Seizure History: known seizure disorder Place: work Possible Precipitating Event: none Associated Symptoms: denies other symptoms Treatments Prior to Arrival: none - Related Data Previous Rx's Medication Instructions Recorded levETIRAcetam [Keppra] 500 mg PO Q12HR 14 Days #30 tab 02/14/22 Allergies Allergy/AdvReac Type Severity Reaction Status Date / Time No Known Allergies Allergy Verified 01/16/23 05:00 Review of Systems ROS Statement: Those systems with pertinent positive or pertinent negative responses have been documented in the HPI. ROS Other: All systems not noted in ROS Statement are negative. Past Medical History Past Medical History: Seizure Disorder Additional Past Medical History / Comment(s): SEIZURE DISORDER History of Any Multi-Drug Resistant Organisms: None Reported Past Surgical History: No Surgical Hx Reported Additional Past Surgical History / Comment(s): wisdom teeth Past Anesthesia/Blood Transfusion Reactions: No Reported Reaction Additional Past Anesthesia/Blood Transfusion Reaction / Comment(s): HAS NOT HAD GENERAL ANESTHESIA. Past Psychological History: Anxiety Smoking Status: Vaper Past Alcohol Use History: Occasional Past Drug Use History: Marijuana - Past Family History Mother Family Medical History: No Reported History General Exam General appearance: alert, in no apparent distress Head exam: Present: atraumatic, normocephalic, normal inspection Eye exam: Present: normal appearance, PERRL, EOMI. Absent: scleral icterus, conjunctival injection, periorbital swelling ENT exam: Present: normal exam, mucous membranes moist Neck exam: Present: normal inspection. Absent: tenderness, meningismus, lymphadenopathy Respiratory exam: Present: normal lung sounds bilaterally. Absent: respiratory distress, wheezes, rales, rhonchi, stridor Cardiovascular Exam: Present: regular rate, normal rhythm, normal heart sounds. Absent: systolic murmur, diastolic murmur, rubs, gallop, clicks GI/Abdominal exam: Present: soft, normal bowel sounds. Absent: distended, tenderness, guarding, rebound, rigid Extremities exam: Present: normal inspection, full ROM, normal capillary refill. Absent: tenderness, pedal edema, joint swelling, calf tenderness Back exam: Present: normal inspection Neurological exam: Present: alert, oriented X3, CN II-XII intact Psychiatric exam: Present: normal affect, normal mood Skin exam: Present: warm, dry, intact, normal color. Absent: rash Course Vital Signs 01/16/23 01/16/23 04:52 06:35 Temperature 98.6 F 98.0 F Pulse Rate 103 H 75 Respiratory 22 18 Rate Blood Pressure 144/96 109/52 O2 Sat by Pulse 99 96 Oximetry - Reevaluation(s) Reevaluation #1: 01/16/23 06:00 Medical records reviewed Reevaluation #2: 01/16/23 06:00 Patient symptoms continue to improve no recurrent seizure Reevaluation #3: 01/16/23 06:00 Patient informed results questions answered Reevaluation #4: 01/16/23 06:00 Was pt. sent in by a medical professional or institution ([facility], [facility], urgent care, hospital, or longterm...) When possible be specific @ -no Did you speak to anyone other than the patient for history (EMS, parent, family, police, friend...)? What history was obtained from this source @ -no Did you review nursing and triage notes (agree or disagree)? Why? @ -agree Are old charts reviewed (outside hosp., previous admission, EMS record, old EKG, old radiological studies, urgent care reports/EKG's, longterm records)? Report findings @ -yes Differential Diagnosis (chest pain, altered mental status, abdominal pain women, abdominal pain men, vaginal bleeding, weakness, fever, dyspnea, syncope, headache, dizziness, GI bleed, back pain, seizure, CVA, palpatations, mental health, musculoskeletal)? @ -prior EKG interpreted by me (3pts min.). @ -yes X-rays interpreted by me (1pt min.). @ -no CT interpreted by me (1pt min.). @ -no U/S interpreted by me (1pt. min.). @ -no What testing was considered but not performed or refused? (CT, X-rays, U/S, labs)? Why? @ -none What meds were considered but not given or refused? Why? @ -none Did you discuss the management of the patient with other professionals (professionals i.e. Dr., PA, [facility]ER, lab, RT, psych nurse, social media community manager, senior chemist, teacher, correction officer, showcase maker)? Give summary @ -no Was smoking cessation discussed for >3mins.? @ -no Was critical care preformed (if so, how long)? @ -no Were there social determinants of health that impacted care today? How? (Homelessness, low income, unemployed, alcoholism, drug addiction, transportation, low edu. Level, literacy, decrease access to med. care, residential, rehab)? @ -none Was there de-escalation of care discussed even if they declined (Discuss DNR or withdrawal of care, Hospice)? DNR status @ -no What co-morbidities impacted this encounter? (DM, HTN, Smoking, COPD, CAD, Cancer, CVA, ARF, Chemo, Hep., AIDS, mental health diagnosis, sleep apnea, morbid obesity)? @ -none Was patient admitted / discharged? Hospital course, mention meds given and route, prescriptions, significant lab abnormalities, going to OR and other pertinent info. @ - 27 female with recurrent seizure. Patient has seizure prior to arrival when symptoms resolve resolved, postictal state resolved no recurrent seizure and patient can be discharged home. Patient takes no seizure medication does not want to start taking seizure medication Discharged Undiagnosed new problem with uncertain prognosis? @ -no Drug Therapy requiring intensive monitoring for toxicity (Heparin, Nitro, Insulin, Cardizem)? @ -no Were any procedures done? @ -no Diagnosis/symptom? @ -Recurrent seizure Acute, or Chronic, or Acute on Chronic? @ -Acute Uncomplicated (without systemic symptoms) or Complicated (systemic symptoms)? @ -Complicated Side effects of treatment? @ -no Exacerbation, Progression, or Severe Exacerbation? @ -exacerbation Poses a threat to life or bodily function? How? (Chest pain, [place], [place], pneumonia, PE, COPD, DKA, ARF, appy, cholecystitis, CVA, Diverticulitis, Homicidal, Suicidal, threat to staff... and all critical care pts) @ -yes with possibility of status epilepticus Reevaluation #5: 01/16/23 06:00 Differential Seizure: Recurrent seizure disorder, febrile seizure, alcohol withdrawal, stimulants, meningitis, encephalitis, intercranial hemorrhage, intracranial tumor, stroke, eclampsia, thyrotoxicosis, hypocalcemia, hyponatremia, hypernatremia, hypomagnesemia, psychogenic, this is not meant to be an all-inclusive list. Medical Decision Making - Medical Decision Making 27 female with recurrent seizure. Patient has seizure prior to arrival when symptoms resolve resolved, postictal state resolved no recurrent seizure and patient can be discharged home. Patient takes no seizure medication does not want to start taking seizure medication - Lab Data Result diagrams: 01/16/23 05:39 01/16/23 05:39 Lab Results 01/16/23 01/16/23 01/16/23 Range/Units 05:33 05:39 05:39 WBC 8.7 (3.8-10.6) k/uL RBC 4.88 (3.80-5.40) m/uL Hgb 15.1 (11.4-16.0) gm/dL Hct 44.6 (34.0-46.0) % MCV 91.4 (80.0-100.0) fL MCH 30.9 (25.0-35.0) pg MCHC 33.8 (31.0-37.0) g/dL RDW 12.6 (11.5-15.5) % Plt Count 189 (150-450) k/uL MPV 9.1 Neutrophils % 65 % Lymphocytes % 26 % Monocytes % 6 % Eosinophils % 2 % Basophils % 0 % Neutrophils # 5.6 (1.3-7.7) k/uL Lymphocytes # 2.2 (1.0-4.8) k/uL Monocytes # 0.5 (0-1.0) k/uL Eosinophils # 0.2 (0-0.7) k/uL Basophils # 0.0 (0-0.2) k/uL Sodium 139 (137-145) mmol/L Potassium 4.0 (3.5-5.1) mmol/L Chloride 102 (98-107) mmol/L Carbon Dioxide 21 L (22-30) mmol/L Anion Gap 16 mmol/L BUN 14 (7-17) mg/dL Creatinine 0.73 (0.52-1.04) mg/dL Est GFR (CKD-EPI)AfAm >90 (>60 ml/min/1.73 sqM) Est GFR (CKD-EPI)NonAf >90 (>60 ml/min/1.73 sqM) Glucose 77 (74-99) mg/dL POC Glucose (mg/dL) 77 (70-110) mg/dL POC Glu Business Support Manager ID Pilar Santos Calcium 9.2 (8.4-10.2) mg/dL Magnesium 1.9 (1.6-2.3) mg/dL Total Bilirubin 0.5 (0.2-1.3) mg/dL AST 22 (14-36) U/L ALT 27 (4-34) U/L Alkaline Phosphatase 64 (38-126) U/L Total Protein 7.1 (6.3-8.2) g/dL Albumin 4.6 (3.5-5.0) g/dL - EKG Data -: EKG Interpreted by Me (EKG is sinus 84, ID [id number] QRS 15 QTc 405) Disposition Clinical Impression: Recurrent seizures, Generalized seizure Disposition: HOME SELF-CARE Condition: Good Instructions (If sedation given, give patient instructions): Seizure/Epilepsy Discharge Instructions & Follow-Up, Recurrent Seizures in Adults (ED) Is patient prescribed a controlled substance at d/c from ED?: No Referrals: None,Stated [Primary Care Provider] - 1-2 days Time of Disposition: 06:00
[2023-01-16 05:43] LABS: Basophils % (A) 0 %; Eosinophils # (A) 0.2 k/uL (0-0.7); Eosinophils % (A) 2 %; HCT 44.6 % (34.0-46.0); HGB 15.1 gm/dL (11.4-16.0); Lymphocytes # (A) 2.2 k/uL (1.0-4.8); Lymphocytes % (A) 26 %; MCH 30.9 pg (25.0-35.0); MCHC 33.8 g/dL (31.0-37.0); MCV 91.4 fL (80.0-100.0); Mean Platelet Volume 9.1; Monocytes # (A) 0.5 k/uL (0-1.0); Monocytes % (A) 6 %; Neutrophils # (A) 5.6 k/uL (1.3-7.7); Neutrophils % (A) 65 %; Platelet Count 189 k/uL (150-450); RBC 4.88 m/uL (3.80-5.40); RDW 12.6 % (11.5-15.5); WBC 8.7 k/uL (3.8-10.6)
[2023-01-16 05:54] LABS: ALT 27 U/L (4-34); AST 22 U/L (14-36); African American GFR (CKD) >90 (>60 ml/min/1.73 sqM); Albumin 4.6 g/dL (3.5-5.0); Alkaline Phosphatase 64 U/L (38-126); Anion Gap 16 mmol/L; Blood Urea Nitrogen 14 mg/dL (7-17); Calcium 9.2 mg/dL (8.4-10.2); Carbon Dioxide 21 mmol/L (22-30); Chloride 102 mmol/L (98-107); Glucose 77 mg/dL (74-99); Magnesium 1.9 mg/dL (1.6-2.3); Non-African American GFR(CKD) >90 (>60 ml/min/1.73 sqM); Sodium 139 mmol/L (137-145); Total Bilirubin 0.5 mg/dL (0.2-1.3); Total Protein 7.1 g/dL (6.3-8.2)
[2023-01-16 06:55] VITALS: BP 109/52; PULSE 75; RESP 18; TEMP 98
== END 2023-01-16 06:52 | disposition home or self-care (01) ==
LOC: SUPCPDRO 04:51 → EC 04:51
DX: G40.409 Other generalized epilepsy and epileptic syndromes, not intractable, without status epilepticus (principal); F17.290 Nicotine dependence, other tobacco product, uncomplicated; F12.90 Cannabis use, unspecified, uncomplicated; Z86.59 Personal history of other mental and behavioral disorders
CPT/HCPCS: 36415; 80053; 83735; 85025; 93005; 99284

== ENCOUNTER 2023-02-15 11:04 | Emergency (ER) | payer OTHER ==
[2023-02-15] MEDS ORDERED: METOCLOPRAMIDE 5 MG/ML 2 ML VIAL IVP STA (11:21)
[2023-02-15] MEDS ORDERED: KETOROLAC 15 MG/ML 1 ML VIAL IVP STA ×2 (11:21→14:54)
[2023-02-15] MEDS ORDERED: SODIUM CHLORIDE 0.9% 2,000 ML IV STA (11:21)
[2023-02-15] MEDS ORDERED: diphenhydrAMINE 50 MG/ML 1 ML VIAL IVP STA (11:21)
[2023-02-15] MEDS ORDERED: PANTOPRAZOLE 40 MG/10 ML VIAL IVP STA (11:21)
--- NOTE | 2023-02-15 11:32 | ED ---
General Adult HPI - General Chief complaint: Abdominal Pain Stated complaint: Vomiting Time Seen by Provider: 02/15/23 11:11 Source: patient, EMS, RN notes reviewed, old records reviewed Mode of arrival: EMS Limitations: no limitations - History of Present Illness Initial comments: Patient is a 27-year-old female presents raise Department complaining of nausea, vomiting, generalized abdominal discomfort. Has been having symptoms since yesterday. Patient has been around Covid another sick contacts recently. Endorses nonbilious number the emesis. Denies any abdominal surgeries previously. States she has a mild headache as well. No acute complaints at this time. Denies any constipation but does endorse diarrhea. Presents for further evaluation at this time. Does have a history of epilepsy but has not had a seizure in over a year and is not on any medications. - Related Data Home Medications Medication Instructions Recorded Confirmed No Known Home Medications 02/15/23 02/15/23 Allergies Allergy/AdvReac Type Severity Reaction Status Date / Time No Known Allergies Allergy Verified 02/15/23 14:13 Review of Systems ROS Statement: Those systems with pertinent positive or pertinent negative responses have been documented in the HPI. Review of Systems: CONST: Denies fever EYES: Denies blurry vision ENT: Denies nasal congestion C/V: Denies Chest pain RESP: Denies shortness of breath GI: Endorses abdominal pain : Denies dysuria SKIN: Denies rash. MSK: Denies joint pain. NEURO: Denies headache . ROS Other: All systems not noted in ROS Statement are negative. Past Medical History Past Medical History: Seizure Disorder Additional Past Medical History / Comment(s): SEIZURE DISORDER History of Any Multi-Drug Resistant Organisms: None Reported Past Surgical History: No Surgical Hx Reported Additional Past Surgical History / Comment(s): wisdom teeth Past Anesthesia/Blood Transfusion Reactions: No Reported Reaction Additional Past Anesthesia/Blood Transfusion Reaction / Comment(s): HAS NOT HAD GENERAL ANESTHESIA. Past Psychological History: Anxiety Smoking Status: Vaper Past Alcohol Use History: Occasional Past Drug Use History: Marijuana - Past Family History Mother Family Medical History: No Reported History General Exam - General Exam Comments Initial Comments: General: Appears in mild distress. HEAD: Normal with no signs of head trauma. EYES: PERRLA, EOMI, conjunctiva normal, no discharge. ENT: Hearing grossly intact, normal oropharynx. RESPIRATORY: Clear breath sounds bilaterally. No wheezes, rales, or rhonchi. C/V: Regular rate and rhythm. S1 and S2 auscultated, no edema, peripheral pulses 2+ and intact throughout ABD: Abdomen soft, nondistended. Eyes discomfort on palpation with no focal tenderness. No guarding. No rebound tenderness. No peritoneal signs. EXT: Normal range of motion, no obvious deformity SKIN: No rashes or lesions observed on exposed skin. NEURO: Alert and oriented 4. Limitations: no limitations Course Vital Signs 02/15/23 02/15/23 11:13 13:20 Temperature 98 F Pulse Rate 85 70 Respiratory 16 16 Rate Blood Pressure 109/53 98/67 O2 Sat by Pulse 94 L 96 Oximetry Medical Decision Making - Medical Decision Making Was pt. sent in by a medical professional or institution (, PA, VENEER TRIMMER, urgent care, hospital, or group home...) When possible be specific @ -No Did you speak to anyone other than the patient for history (EMS, parent, family, police, friend...)? What history was obtained from this source @ -No Did you review nursing and triage notes (agree or disagree)? Why? @ -I reviewed and agree with nursing and triage notes Were old charts reviewed (outside hosp., previous admission, EMS record, old EKG, old radiological studies, urgent care reports/EKG's, group home records)? Report findings @ -No old charts were reviewed Differential Diagnosis (chest pain, altered mental status, abdominal pain women, abdominal pain men, vaginal bleeding, weakness, fever, dyspnea, syncope, headache, dizziness, GI bleed, back pain, seizure, CVA, palpatations, mental health, musculoskeletal)? @ -Differential Abdominal Pain Women: Appendicitis, Cholecystitis, diverticulosis, ischemic bowel, pancreatitis, hepatitis, UTI, gastroenteritis, AAA, incarcerated hernia, bowel obstruction, constipation, inflammatory bowel, hepatitis, peptic ulcer disease, splenic infarction, perforated viscus, vulvitis, ovarian torsion, PID, kidney stone, placenta abruption, this is not meant to be an all-inclusive list EKG interpreted by me (3pts min.). @ -As above X-rays interpreted by me (1pt min.). @ -Chest x-ray reveals no obvious acute cardio palmar process. CT interpreted by me (1pt min.). @ -None done U/S interpreted by me (1pt. min.). @ -Gallbladder ultrasound reveals numerous gallstones. Cholelithiasis without evidence of cholecystitis. What testing was considered but not performed or refused? (CT, X-rays, U/S, labs)? Why? @ -None What meds were considered but not given or refused? Why? @ -None Did you discuss the management of the patient with other professionals (professionals i.e. DrSophia, PA, VENEER TRIMMER, lab, RT, psych nurse, oncology social worker, professor of literature, teacher, workplace rehabilitation officer, case assembler)? Give summary @ -No Was smoking cessation discussed for >3mins.? @ -No Was critical care preformed (if so, how long)? @ -No Were there social determinants of health that impacted care today? How? (Ho melessness, low income, unemployed, alcoholism, drug addiction, transportation, low edu. Level, literacy, decrease access to med. care, residential, rehab)? @ -No Was there de-escalation of care discussed even if they declined (Discuss DNR or withdrawal of care, Hospice)? DNR status @ -No What co-morbidities impacted this encounter? (DM, HTN, Smoking, COPD, CAD, Cancer, CVA, ARF, Chemo, Hep., AIDS, mental health diagnosis, sleep apnea, morbid obesity)? @ -None Was patient admitted / discharged? Hospital course, mention meds given and route, prescriptions, significant lab abnormalities, going to OR and other pertinent info. @ -Based on the patient's presentation and physical exam, I'm concerned for possible abdominal process. We will obtain abdominal labs, as well as a screening EKG and chest x-ray. She'll be symptomatically treated with IV Reglan, Benadryl, Toradol, fluids, Protonix. Vital signs within acceptable limits. She was in agreement this plan. We will also obtain ultrasound of the gallbladder. Patient's laboratory studies are remarkable for normal hepatobiliary labs. Patient is not . Labs otherwise within acceptable limits. Imaging remarkable for cholelithiasis without evidence of cholecystitis. On reevaluation, patient is feeling improved. She is tolerating oral intake of water and crackers. I discussed results. Patient has biliary colic with cholelithiasis. No evidence of cholecystitis at this time. I believe it is safer to be discharged home with follow-up with surgery. She was in agreement this plan. Strict return precautions discussed. Patient given starter packs for Tylenol 3 and Zofran. I instructed the patient to follow up with their PCP in the next 1-3 days. I provided contact information for follow up with surgery. I explained that the patient should return to the emergency department if they experience any worsening symptoms. Strict return precautions were discussed with the patient. The patient expressed understanding of these instructions. I answered all questions that the patient had. The patient was discharged home in good condition with their prescriptions and follow up information. Undiagnosed new problem with uncertain prognosis? @ -No Drug Therapy requiring intensive monitoring for toxicity (Heparin, Nitro, Insulin, Cardizem)? @ -No Were any procedures done? @ -No Diagnosis/symptom? @ -Biliary colic, cholelithiasis Acute, or Chronic, or Acute on Chronic? @ -Acute Uncomplicated (without systemic symptoms) or Complicated (systemic symptoms)? @ -Complicated Side effects of treatment? @ -none Exacerbation, Progression, or Severe Exacerbation] @ -no Poses a threat to life or bodily function? @ -no - Lab Data Result diagrams: 02/15/23 11:27 02/15/23 12:49 Lab Results 02/15/23 02/15/23 02/15/23 Range/Units 11:27 11:27 11:27 WBC 10.8 H (3.8-10.6) k/uL RBC 5.11 (3.80-5.40) m/uL Hgb 16.0 (11.4-16.0) gm/dL Hct 46.4 H (34.0-46.0) % MCV 90.9 (80.0-100.0) fL MCH 31.3 (25.0-35.0) pg MCHC 34.4 (31.0-37.0) g/dL RDW 12.6 (11.5-15.5) % Plt Count 193 (150-450) k/uL MPV 9.1 Neutrophils % 87 % Lymphocytes % 7 % Monocytes % 3 % Eosinophils % 1 % Basophils % 0 % Neutrophils # 9.4 H (1.3-7.7) k/uL Lymphocytes # 0.8 L (1.0-4.8) k/uL Monocytes # 0.3 (0-1.0) k/uL Eosinophils # 0.1 (0-0.7) k/uL Basophils # 0.0 (0-0.2) k/uL PT 11.0 (10.0-12.5) sec INR 1.0 (<1.2) APTT 22.1 (22.0-30.0) sec Sodium (137-145) mmol/L Potassium (3.5-5.1) mmol/L Chloride (98-107) mmol/L Carbon Dioxide (22-30) mmol/L Anion Gap mmol/L BUN (7-17) mg/dL Creatinine (0.52-1.04) mg/dL Est GFR (CKD-EPI)AfAm (>60 ml/min/1.73 sqM) Est GFR (CKD-EPI)NonAf (>60 ml/min/1.73 sqM) Glucose (74-99) mg/dL Calcium (8.4-10.2) mg/dL Total Bilirubin (0.2-1.3) mg/dL AST (14-36) U/L ALT (4-34) U/L Alkaline Phosphatase (38-126) U/L Total Protein (6.3-8.2) g/dL Albumin (3.5-5.0) g/dL Amylase (30-110) U/L Lipase (23-300) U/L HCG, Qual Urine Color Hale Urine Appearance Clear (Clear) Urine pH 6.0 (5.0-8.0) Ur Specific Strawn 1.030 (1.001-1.035) Urine Protein 1+ H (Negative) Urine Glucose (UA) Negative (Negative) Urine Ketones 2+ (Negative) Urine Blood Trace H (Negative) Urine Nitrite Negative (Negative) Urine Bilirubin 1+ H (Negative) Urine Urobilinogen 0.2 (<2.0) mg/dL Ur Leukocyte Esterase Negative (Negative) Urine RBC 1 (0-5) /hpf Urine WBC 7 H (0-5) /hpf Ur Squamous Epith Cells 6 H (0-4) /hpf Urine Mucus Many H (None) /hpf Influenza Type A (PCR) (Not Detectd) Influenza Type B (PCR) (Not Detectd) RSV (PCR) (Not Detectd) SARS-CoV-2 (PCR) (Not Detectd) 12/07/23 12/07/23 Range/Units 11:27 12:49 WBC (3.8-10.6) k/uL RBC (3.80-5.40) m/uL Hgb (11.4-16.0) gm/dL Hct (34.0-46.0) % MCV (80.0-100.0) fL MCH (25.0-35.0) pg MCHC (31.0-37.0) g/dL RDW (11.5-15.5) % Plt Count (150-450) k/uL MPV Neutrophils % % Lymphocytes % % Monocytes % % Eosinophils % % Basophils % % Neutrophils # (1.3-7.7) k/uL Lymphocytes # (1.0-4.8) k/uL Monocytes # (0-1.0) k/uL Eosinophils # (0-0.7) k/uL Basophils # (0-0.2) k/uL PT (10.0-12.5) sec INR (<1.2) APTT (22.0-30.0) sec Sodium 137 (137-145) mmol/L Potassium 3.4 L (3.5-5.1) mmol/L Chloride 108 H (98-107) mmol/L Carbon Dioxide 20 L (22-30) mmol/L Anion Gap 9 mmol/L BUN 11 (7-17) mg/dL Creatinine 0.51 L (0.52-1.04) mg/dL Est GFR (CKD-EPI)AfAm >90 (>60 ml/min/1.73 sqM) Est GFR (CKD-EPI)NonAf >90 (>60 ml/min/1.73 sqM) Glucose 98 (74-99) mg/dL Calcium 7.4 L (8.4-10.2) mg/dL Total Bilirubin 0.7 (0.2-1.3) mg/dL AST 24 (14-36) U/L ALT 24 (4-34) U/L Alkaline Phosphatase 58 (38-126) U/L Total Protein 5.7 L (6.3-8.2) g/dL Albumin 3.3 L (3.5-5.0) g/dL Amylase 35 (30-110) U/L Lipase 31 (23-300) U/L HCG, Qual Not Detected Urine Color Urine Appearance (Clear) Urine pH (5.0-8.0) Ur Specific Strawn (1.001-1.035) Urine Protein (Negative) Urine Glucose (UA) (Negative) Urine Ketones (Negative) Urine Blood (Negative) Urine Nitrite (Negative) Urine Bilirubin (Negative) Urine Urobilinogen (<2.0) mg/dL Ur Leukocyte Esterase (Negative) Urine RBC (0-5) /hpf Urine WBC (0-5) /hpf Ur Squamous Epith Cells (0-4) /hpf Urine Mucus (None) /hpf Influenza Type A (PCR) Not Detected (Not Detectd) Influenza Type B (PCR) Not Detected (Not Detectd) RSV (PCR) Not Detected (Not Detectd) SARS-CoV-2 (PCR) Not Detected (Not Detectd) - EKG Data -: EKG Interpreted by Me EKG Comments: 12-lead Electrocardiogram Interpretation Note EKG was reviewed and interpreted by myself. 12-lead ECG performed at 1141 is in terpreted by me as revealing normal sinus rhythm at a rate of 66 beats per minute. Dickens is normal. [place] interval is 151 ms, QRS durations 102 ms, QTc is 413 ms.. There were no ST or T wave abnormalities to suggest myocardial ischemia or injury. R wave progression across the precordium was satisfactory. By my interpretation this EKG is non-diagnostic for acute ischemia. Disposition Clinical Impression: Biliary colic, Cholelithiases Disposition: HOME SELF-CARE Instructions (If sedation given, give patient instructions): Gallstones (ED), Biliary Colic (ED) Is patient prescribed a controlled substance at d/c from ED?: No Referrals: None,Stated [Primary Care Provider] - 1-2 days Tunde Osorio MD [Medical Doctor] - 1-2 days Time of Disposition: 14:38
[2023-02-15 11:42] LABS: Basophils % (A) 0 %; Eosinophils # (A) 0.1 k/uL (0-0.7); Eosinophils % (A) 1 %; HCT 46.4 % (34.0-46.0); Lymphocytes # (A) 0.8 k/uL (1.0-4.8); Lymphocytes % (A) 7 %; MCH 31.3 pg (25.0-35.0); MCHC 34.4 g/dL (31.0-37.0); MCV 90.9 fL (80.0-100.0); Mean Platelet Volume 9.1; Monocytes # (A) 0.3 k/uL (0-1.0); Monocytes % (A) 3 %; Neutrophils # (A) 9.4 k/uL (1.3-7.7); Neutrophils % (A) 87 %; Platelet Count 193 k/uL (150-450); RBC 5.11 m/uL (3.80-5.40); RDW 12.6 % (11.5-15.5); WBC 10.8 k/uL (3.8-10.6)
[2023-02-15 12:12] LABS: Partial Thromboplastin Time 22.1 sec (22.0-30.0)
--- NOTE | 2023-02-15 13:05 | US ---
EXAMINATION TYPE: US gallbladder DATE OF EXAM: 02/15/2023 COMPARISON: 03/17/17 CLINICAL INDICATION: Female, 27 years old with history of abd pain, n/v; abd pain, n/v began last nig ht TECHNIQUE: Multiple sonographic images of the right upper quadrant are obtained. FINDINGS: EXAM MEASUREMENTS: Liver Length: 16.6 cm Gallbladder Wall: 0.3 cm CBD: 0.4 cm Right Kidney: 10.1x4.6x4.5 cm FRAMING CONSULTANT NOTES: Pancreas: wnl Liver: upper limits Gallbladder: Wall echo shadow sign suggesting GB packed with stones Evidence for sonographic Edmond's sign: No CBD: wnl Right Kidney: No hydronephrosis or masses seen exam slightly limited by bowel and body habitus IMPRESSION: 1. Cholelithiasis
--- NOTE | 2023-02-15 13:19 | XR ---
EXAMINATION TYPE: XR chest 1V portable DATE OF EXAM: 02/15/2023 COMPARISON: NONE HISTORY: Chest pain TECHNIQUE: Single frontal view of the chest is obtained. FINDINGS: There is no focal air space opacity, pleural effusion, or pneumothorax seen. The cardiac silhouette size is within normal limits. The osseous structures are intact. IMPRESSION: 1. No acute process.
[2023-02-15 13:54] LABS: Appearance,Urine Clear (Clear); Color,Urine Orange
[2023-02-15 13:56] LABS: Glucose,Urine (UA) Negative (Negative); Ketones,Urine 2+ (Negative); Protein,Urine 1+ (Negative)
[2023-02-15 13:57] LABS: Bilirubin,Urine 1+ (Negative); Blood,Urine Trace (Negative); Leukocyte Esterase,Urine Negative (Negative); Nitrite,Urine Negative (Negative); Urobilinogen,Urine 0.2 mg/dL (<2.0)
[2023-02-15 14:00] LABS: Mucus,Urine Many /hpf; RBC,Urine 1 /hpf (0-5); Squamous Epithelial Cell,Urine 6 /hpf (0-4); WBC,Urine 7 /hpf (0-5)
[2023-02-15 14:12] LABS: HCG,Qualitative Serum Not Detected
[2023-02-15 14:13] LABS: ALT 24 U/L (4-34); AST 24 U/L (14-36); African American GFR (CKD) >90 (>60 ml/min/1.73 sqM); Albumin 3.3 g/dL (3.5-5.0); Alkaline Phosphatase 58 U/L (38-126); Amylase 35 U/L (30-110); Anion Gap 9 mmol/L; Blood Urea Nitrogen 11 mg/dL (7-17); Calcium 7.4 mg/dL (8.4-10.2); Carbon Dioxide 20 mmol/L (22-30); Chloride 108 mmol/L (98-107); Glucose 98 mg/dL (74-99); Lipase 31 U/L (23-300); Non-African American GFR(CKD) >90 (>60 ml/min/1.73 sqM); Potassium 3.4 mmol/L (3.5-5.1); Sodium 137 mmol/L (137-145); Total Bilirubin 0.7 mg/dL (0.2-1.3); Total Protein 5.7 g/dL (6.3-8.2)
[2023-02-15] MEDS ORDERED: ONDANSETRON 4 MG ODT STARTER PACK 2 TAB BTL PO STA (14:52)
[2023-02-15] MEDS ORDERED: ACET/COD 300 MG/30 MG STARTER PACK 6 TAB BTL PO STA (14:52)
[2023-02-15 15:27] VITALS: BP 110/71; PULSE 74; RESP 18; TEMP 99
== END 2023-02-15 15:21 | disposition home or self-care (01) ==
LOC: EC 11:04
DX: K80.70 Calculus of gallbladder and bile duct without cholecystitis without obstruction (principal); F17.290 Nicotine dependence, other tobacco product, uncomplicated; F12.90 Cannabis use, unspecified, uncomplicated; Z86.59 Personal history of other mental and behavioral disorders; Z20.822 Contact with and (suspected) exposure to COVID-19
CPT/HCPCS: 99285; 96374; 96375 ×3; 96376; 96361 ×2; 36415; 80053; 82150; 83690; 85025; 85610; 85730; 81001; 84703; 87636; 71045; 76705; J1200; J2765; J1885; S0119; C9113

== ENCOUNTER → 2023-03-19 | Outpatient (CLI) | payer OTHER ==
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
== END | disposition home or self-care (01) ==
LOC: RADXRMAIN 02:24
PROVIDERS: ATTEND Emergency Medicine
DX: M25.572 Pain in left ankle and joints of left foot (principal); M79.89 Other specified soft tissue disorders

== ENCOUNTER 2023-05-17 12:26 | Emergency (ER) | payer OTHER ==
[2023-05-17 12:53] VITALS: RESP 18; TEMP 98
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
[2023-05-17 13:26] VITALS: BP 138/95; PULSE 87
== END 2023-05-17 13:10 | disposition home or self-care (01) ==
LOC: EC 12:26
DX: G40.409 Other generalized epilepsy and epileptic syndromes, not intractable, without status epilepticus (principal); F17.290 Nicotine dependence, other tobacco product, uncomplicated; F12.90 Cannabis use, unspecified, uncomplicated
CPT/HCPCS: 99284

== ENCOUNTER 2023-05-17 17:01 | Emergency (ER) | payer OTHER ==
[2023-05-17 17:28] VITALS: BP 165/93; PULSE 74; RESP 18; TEMP 98
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
--- NOTE | 2023-05-17 19:32 | XR ---
EXAMINATION: XR chest 2V: 05/17/2023 7:06 PM CLINICAL INDICATION: pain TECHNIQUE: Departmental protocol COMPARISON: 02/15/2023 FINDINGS: The lungs are clear. The pleural spaces are negative. The cardiac silhouette is not enlarged. The remainder of the mediastinal silhouette is unremarkable. The skeletal structures and soft tissues are negative for acute findings. IMPRESSION: No acute radiographic process.
[2023-05-17] MEDS: IBUPROFEN 800 MG TAB PO STA (20:17)
[2023-05-17] MEDS: ACETAMINOPHEN TAB 500 MG TAB PO STA (20:17)
[2023-05-17] MEDS: ONDANSETRON 4 MG ODT STARTER PACK 2 TAB BTL PO STA (20:17)
[2023-05-17] MEDS: IBUPROFEN 600 MG STARTER PACK 4 TAB BTL PO STA (20:17)
[2023-05-17] MEDS: PROCHLORPERAZINE 5 MG TAB PO STA (20:40)
[2023-05-17] MEDS: levETIRAcetam 500 MG TAB PO STA (20:40)
== END 2023-05-17 20:49 | disposition home or self-care (01) ==
LOC: EC 17:01
DX: G40.409 Other generalized epilepsy and epileptic syndromes, not intractable, without status epilepticus (principal); R51.9 Headache, unspecified; F17.290 Nicotine dependence, other tobacco product, uncomplicated; F12.90 Cannabis use, unspecified, uncomplicated; Z86.59 Personal history of other mental and behavioral disorders; V89.2XXA Person injured in unspecified motor-vehicle accident, traffic, initial encounter; Y92.410 Unspecified street and highway as the place of occurrence of the external cause
CPT/HCPCS: 71046; 72125; 70450; 99284; S0183; S0119

== ENCOUNTER 2023-05-27 20:11 | Observation (INO) | payer OTHER ==
--- NOTE | 2023-05-27 20:44 | ED ---
Seizure HPI - General Chief Complaint: Seizure Stated Complaint: Seizure Time Seen by Provider: 05/27/23 20:20 Source: patient, RN notes reviewed Mode of arrival: ambulatory Limitations: no limitations - History of Present Illness Initial Comments: 7-year-old female presents emergency department chief complaint of seizure. Patient states that she was at home this afternoon when she started shaking in the bathroom and fell down tween the sink and toilet. Denies hitting her head, but states that her neck is sore and is having a difficult time turning her head to the right-hand side. Patient states that she did not take the dose of prescribed antiseizure medication, Keppra, today. Admits that she was drinking alcohol yesterday and has been extremely stressed. Patient has had multiple visits to the emergency department over the past few weeks due to complaints of seizures is requesting admission for further neurology workup at this time. - Related Data Previous Rx's Medication Instructions Recorded levETIRAcetam [Keppra] 750 mg PO Q12HR #60 tab 05/28/23 Allergies Allergy/AdvReac Type Severity Reaction Status Date / Time No Known Allergies Allergy Verified 05/28/23 08:18 Review of Systems ROS Statement: Those systems with pertinent positive or pertinent negative responses have been documented in the HPI. ROS Other: All systems not noted in ROS Statement are negative. Past Medical History Past Medical History: Seizure Disorder Additional Past Medical History / Comment(s): SEIZURE DISORDER History of Any Multi-Drug Resistant Organisms: None Reported Past Surgical History: No Surgical Hx Reported Additional Past Surgical History / Comment(s): wisdom teeth Past Anesthesia/Blood Transfusion Reactions: No Reported Reaction Additional Past Anesthesia/Blood Transfusion Reaction / Comment(s): HAS NOT HAD GENERAL ANESTHESIA. Past Psychological History: Anxiety Smoking Status: Vaper Past Alcohol Use History: Occasional Past Drug Use History: None Reported, Marijuana - Past Family History Mother Family Medical History: No Reported History General Exam Limitations: no limitations General appearance: anxious Head exam: Present: atraumatic, normocephalic, normal inspection Eye exam: Present: normal appearance, PERRL, EOMI. Absent: scleral icterus, conjunctival injection, periorbital swelling ENT exam: Present: normal exam, mucous membranes moist Neck exam: Present: normal inspection, tenderness, other (right-sided cervical tenderness to palpation) Respiratory exam: Present: normal lung sounds bilaterally. Absent: respiratory distress, wheezes, rales, rhonchi, stridor Cardiovascular Exam: Present: regular rate, normal rhythm, tachycardia, normal heart sounds. Absent: systolic murmur, diastolic murmur, rubs, gallop, clicks GI/Abdominal exam: Present: soft, normal bowel sounds. Absent: distended, tenderness, guarding, rebound, rigid Extremities exam: Present: normal inspection, full ROM, normal capillary refill. Absent: tenderness, pedal edema, joint swelling, calf tenderness Back exam: Present: normal inspection Neurological exam: Present: alert, oriented X3, CN II-XII intact Psychiatric exam: Present: normal affect, normal mood Skin exam: Present: warm, dry, intact, normal color. Absent: rash Course Vital Signs 05/27/23 05/28/23 20:14 00:21 Temperature 98.3 F Pulse Rate 105 H 79 Respiratory 16 18 Rate Blood Pressure 132/82 118/74 O2 Sat by Pulse 97 97 Oximetry - Reevaluation(s) Reevaluation #1: States that she is still experiencing some nausea and headache. Patient offered other dose of antiemetic and pain medication. 05/27/23 21:53 Medical Decision Making - Medical Decision Making Was pt. sent in by a medical professional or institution (, PA, [employer] CONSERVATIONIST, urgent care, hospital, or long term...) When possible be specific @ -No Did you speak to anyone other than the patient for history (EMS, parent, family, police, friend...)? What history was obtained from this source @ -No Did you review nursing and triage notes (agree or disagree)? Why? @ -I reviewed and agree with nursing and triage notes Were old charts reviewed (outside hosp., previous admission, EMS record, old EKG, old radiological studies, urgent care reports/EKG's, long term records)? Report findings @ -Previous emergency department visit reviewed. CT scan of head and cervical spine markable. Reviewed that patient was started on Keppra for seizure management and for to neurology. Differential Diagnosis (chest pain, altered mental status, abdominal pain women, abdominal pain men, vaginal bleeding, weakness, fever, dyspnea, syncope, headache, dizziness, GI bleed, back pain, seizure, CVA, palpatations, mental health, musculoskeletal)? @ -Differential Seizure: Recurrent seizure disorder, febrile seizure, alcohol withdrawal, stimulants, meningitis, encephalitis, intercranial hemorrhage, intracranial tumor, stroke, eclampsia, thyrotoxicosis, hypocalcemia, hyponatremia, hypernatremia, hyp omagnesemia, psychogenic, this is not meant to be an all-inclusive list. EKG interpreted by me (3pts min.). @ -completed at 2108 with normal sinus rhythm, ventricular rate 69, [place] interval 136, QTc 397, acute signs of ischemia, no ST segment elevation, depression. X-rays interpreted by me (1pt min.). @ -X-ray cervical spine no acute fracture CT interpreted by me (1pt min.). @ -T of head revealed no acute intracranial process. U/S interpreted by me (1pt. min.). @ -None done What testing was considered but not performed or refused? (CT, X-rays, U/S, labs)? Why? @ -None What meds were considered but not given or refused? Why? @ -None Did you discuss the management of the patient with other professionals (professionals i.e. , PA, [employer] CON[employer]ATIONIST, lab, RT, psych nurse, high school social studies tutor, light technician, teacher, disability insurance hearing officer, case packer)? Give summary @ -Care discussed with attending , who agrees with observation and neurology consult. Spoke with [facility] attending on-call who is agreeable to admissi on for observation and neurology consult tomorrow. Was smoking cessation discussed for >3mins.? @ -No Was critical care preformed (if so, how long)? @ -No Were there social determinants of health that impacted care today? How? (Homelessness, low income, unemployed, alcoholism, drug addiction, transp ortation, low edu. Level, literacy, decrease access to med. care, long-term, rehab)? @ -No Was there de-escalation of care discussed even if they declined (Discuss DNR or withdrawal of care, Hospice)? DNR status @ -No What co-morbidities impacted this encounter? (DM, HTN, Smoking, COPD, CAD, Cancer, CVA, ARF, Chemo, Hep., AIDS, mental health diagnosis, sleep apnea, morbid obesity)? @ -None Was patient admitted / discharged? Hospital course, mention meds given and route, prescriptions, significant lab abnormalities, going to OR and other pertinent info. @ -Admitted. 27-year-old female chief complaint of seizure. Patient has had multiple seizures over the last few weeks, and when she recently came to the emergency department she was not interested in completing a full evaluation. At this time patient is requesting admission for neurology evaluation. CBC and CMP unremarkable for signs of leukocytosis, thrombocytopenia, electrolyte abnormalities. Urine is positive for marijuana, beta hCG negative. ET of head with no acute intracranial process. Discussed Plan of care with general medici ne team who is agreeable to admission for observation and neurology consult tomorrow. Was discussed with my attending, Dr. Thomas, who is agreeable with lab interpretation and with admission for further evaluation by neurology. Undiagnosed new problem with uncertain prognosis? @ -No Drug Therapy requiring intensive monitoring for toxicity (Heparin, Nitro, Insulin, Cardizem)? @ -No Were any procedures done? @ -No Diagnosis/symptom? @ -Seizures Acute, or Chronic, or Acute on Chronic? @ -acute Uncomplicated (without systemic symptoms) or Complicated (systemic symptoms)? @ -complicated Side effects of treatment? @ -No Exacerbation, Progression, or Severe Exacerbation? @ -No Poses a threat to life or bodily function? How? (Chest pain, [place], [place], pneumonia, PE, COPD, DKA, ARF, appy, cholecystitis, CVA, Diverticulitis, Homicidal, Suicidal, threat to staff... and all critical care pts) @ yes, untreated seizures can lead to consequently down the road and potential further bodily harm or injury. - Lab Data Result diagrams: 05/27/23 20:45 05/27/23 20:45 Lab Results 05/27/23 05/27/23 05/27/23 Range/Units 20:45 20:45 20:45 WBC 11.3 H (3.8-10.6) k/uL RBC 5.41 H (3.80-5.40) m/uL Hgb 16.7 H (11.4-16.0) gm/dL Hct 49.6 H (34.0-46.0) % MCV 91.6 (80.0-100.0) fL MCH 30.9 (25.0-35.0) pg MCHC 33.7 (31.0-37.0) g/dL RDW 13.2 (11.5-15.5) % Plt Count 222 (150-450) k/uL MPV 9.9 Neutrophils % 76 % Lymphocytes % 16 % Monocytes % 6 % Eosinophils % 1 % Basophils % 0 % Neutrophils # 8.6 H (1.3-7.7) k/uL Lymphocytes # 1.8 (1.0-4.8) k/uL Monocytes # 0.7 (0-1.0) k/uL Eosinophils # 0.1 (0-0.7) k/uL Basophils # 0.0 (0-0.2) k/uL Sodium 139 (137-145) mmol/L Potassium 3.9 (3.5-5.1) mmol/L Chloride 106 (98-107) mmol/L Carbon Dioxide 20 L (22-30) mmol/L Anion Gap 13 mmol/L BUN 11 (7-17) mg/dL Creatinine 0.63 (0.52-1.04) mg/dL Est GFR (CKD-EPI)AfAm >90 (>60 ml/min/1.73 sqM) Est GFR (CKD-EPI)NonAf >90 (>60 ml/min/1.73 sqM) Glucose 103 H (74-99) mg/dL Calcium 9.6 (8.4-10.2) mg/dL Magnesium 1.8 (1.6-2.3) mg/dL Total Bilirubin 0.9 (0.2-1.3) mg/dL AST 29 (14-36) U/L ALT 27 (4-34) U/L Alkaline Phosphatase 82 (38-126) U/L Total Protein 7.2 (6.3-8.2) g/dL Albumin 4.6 (3.5-5.0) g/dL Urine HCG, Qual (Not Detectd) Urine Opiates Screen Not Detected (NotDetected) Ur Oxycodone Screen Not Detected (NotDetected) Urine Methadone Screen Not Detected (NotDetected) Ur Barbiturates Screen Not Detected (NotDetected) U Tricyclic Antidepress Not Detected (NotDetected) Levetiracetam (3.0-60.0) ug/mL Ur Phencyclidine Scrn Not Detected (NotDetected) Ur Amphetamines Screen Not Detected (NotDetected) U Methamphetamines Scrn Not Detected (NotDetected) U Benzodiazepines Scrn Not Detected (NotDetected) Urine Cocaine Screen Not Detected (NotDetected) U Marijuana (THC) Screen Detected H (NotDetected) 05/27/23 05/27/23 Range/Units 20:45 20:45 WBC (3.8-10.6) k/uL RBC (3.80-5.40) m/uL Hgb (11.4-16.0) gm/dL Hct (34.0-46.0) % MCV (80.0-100.0) fL MCH (25.0-35.0) pg MCHC (31.0-37.0) g/dL RDW (11.5-15.5) % Plt Count (150-450) k/uL MPV Neutrophils % % Lymphocytes % % Monocytes % % Eosinophils % % Basophils % % Neutrophils # (1.3-7.7) k/uL Lymphocytes # (1.0-4.8) k/uL Monocytes # (0-1.0) k/uL Eosinophils # (0-0.7) k/uL Basophils # (0-0.2) k/uL Sodium (137-145) mmol/L Potassium (3.5-5.1) mmol/L Chloride (98-107) mmol/L Carbon Dioxide (22-30) mmol/L Anion Gap mmol/L BUN (7-17) mg/dL Creatinine (0.52-1.04) mg/dL Est GFR (CKD-EPI)AfAm (>60 ml/min/1.73 sqM) Est GFR (CKD-EPI)NonAf (>60 ml/min/1.73 sqM) Glucose (74-99) mg/dL Calcium (8.4-10.2) mg/dL Magnesium (1.6-2.3) mg/dL Total Bilirubin (0.2-1.3) mg/dL AST (14-36) U/L ALT (4-34) U/L Alkaline Phosphatase (38-126) U/L Total Protein (6.3-8.2) g/dL Albumin (3.5-5.0) g/dL Urine HCG, Qual Not Detected (Not Detectd) Urine Opiates Screen (NotDetected) Ur Oxycodone Screen (NotDetected) Urine Methadone Screen (NotDetected) Ur Barbiturates Screen (NotDetected) U Tricyclic Antidepress (NotDetected) Levetiracetam 4.8 (3.0-60.0) ug/mL Ur Phencyclidine Scrn (NotDetected) Ur Amphetamines Screen (NotDetected) U Methamphetamines Scrn (NotDetected) U Benzodiazepines Scrn (NotDetected) Urine Cocaine Screen (NotDetected) U Marijuana (THC) Screen (NotDetected) Disposition Clinical Impression: Focal seizure Disposition: ADMITTED IP TO THIS [facility] Condition: Good Is patient prescribed a controlled substance at d/c from ED?: No Decision to Admit Reason: Admit from EC Decision Time: 22:53
[2023-05-27] MEDS: ONDANSETRON ODT 4 MG TAB PO STA (20:51)
[2023-05-27] MEDS: SODIUM CHLORIDE 0.9% 1,000 ML IV STA (20:52)
[2023-05-27] MEDS: KETOROLAC 15 MG/ML 1 ML VIAL IVP STA (20:57)
[2023-05-27 21:17] LABS: Basophils % (A) 0 %; Eosinophils # (A) 0.1 k/uL (0-0.7); Eosinophils % (A) 1 %; HCT 49.6 % (34.0-46.0); HGB 16.7 gm/dL (11.4-16.0); Lymphocytes # (A) 1.8 k/uL (1.0-4.8); Lymphocytes % (A) 16 %; MCH 30.9 pg (25.0-35.0); MCHC 33.7 g/dL (31.0-37.0); MCV 91.6 fL (80.0-100.0); Mean Platelet Volume 9.9; Monocytes # (A) 0.7 k/uL (0-1.0); Monocytes % (A) 6 %; Neutrophils # (A) 8.6 k/uL (1.3-7.7); Neutrophils % (A) 76 %; Platelet Count 222 k/uL (150-450); RBC 5.41 m/uL (3.80-5.40); RDW 13.2 % (11.5-15.5); WBC 11.3 k/uL (3.8-10.6)
[2023-05-27 21:34] LABS: Amphetamine Screen,Urine Not Detected (NotDetected); Barbiturate Screen,Urine Not Detected (NotDetected); Benzodiazepines Screen,Urine Not Detected (NotDetected); Cocaine Screen,Urine Not Detected (NotDetected); Methadone Screen, Urine Not Detected (NotDetected); Opiate Screen,Urine Not Detected (NotDetected); Oxycodone Screen, Urine Not Detected (NotDetected); Phencyclidine Screen,Urine Not Detected (NotDetected); Tricyclic Antidepressant,Urine Not Detected (NotDetected)
[2023-05-27 21:35] LABS: Urn Cannabinoid Scrn Detected (NotDetected)
[2023-05-27 21:53] LABS: ALT 27 U/L (4-34); AST 29 U/L (14-36); African American GFR (CKD) >90 (>60 ml/min/1.73 sqM); Albumin 4.6 g/dL (3.5-5.0); Alkaline Phosphatase 82 U/L (38-126); Anion Gap 13 mmol/L; Blood Urea Nitrogen 11 mg/dL (7-17); Calcium 9.6 mg/dL (8.4-10.2); Carbon Dioxide 20 mmol/L (22-30); Chloride 106 mmol/L (98-107); Glucose 103 mg/dL (74-99); Magnesium 1.8 mg/dL (1.6-2.3); Non-African American GFR(CKD) >90 (>60 ml/min/1.73 sqM); Potassium 3.9 mmol/L (3.5-5.1); Sodium 139 mmol/L (137-145); Total Bilirubin 0.9 mg/dL (0.2-1.3); Total Protein 7.2 g/dL (6.3-8.2)
[2023-05-27] MEDS: METOCLOPRAMIDE 5 MG/ML 2 ML VIAL IVP STA (21:59)
[2023-05-27] MEDS: ACETAMINOPHEN TAB 500 MG TAB PO STA (22:00)
[2023-05-27] MEDS ORDERED: NALOXONE 0.4 MG/ML 1 ML VIAL IV PRN (22:54)
[2023-05-27] MEDS ORDERED: ONDANSETRON 4 MG/2 ML VIAL IVP PRN (22:54)
--- NOTE | 2023-05-27 23:56 | CT ---
EXAM: CT Head Without Intravenous Contrast CLINICAL HISTORY: ITS.REASON CT Reason: seizure, fall TECHNIQUE: Axial computed tomography images of the head/brain without intravenous contrast. CTDI is 49.1 mGy and DLP is 1060.4 mGy-cm. This CT exam was performed using one or more of the following dose reduction techniques: automated exposure control, adjustment of the mA and/or kV according to patient size, and/or use of iterative reconstruction technique. COMPARISON: Comparison made to prior head CT from May 17, 2023. FINDINGS: Brain: Unremarkable. No hemorrhage. No significant white matter disease. No edema. Ventricles: Unremarkable. No ventriculomegaly. Bones/joints: Unremarkable. No acute fracture. Soft tissues: Unremarkable. Sinuses: Unremarkable as visualized. No acute sinusitis. Mastoid air cells: Unremarkable as visualized. No mastoid effusion. IMPRESSION: No evidence of acute intracranial pathology.
--- NOTE | 2023-05-28 00:15 | XR ---
EXAMINATION TYPE: XR cervical spine comp DATE OF EXAM: 05/27/2023 9:26 PM CLINICAL INDICATION:Female, 27 years old with history of fall during seizure; [facility] COMPARISON: None TECHNIQUE: The cervical spine was imaged in frontal, lateral, odontoid and bilateral oblique. FINDINGS: The osseous structures show normal mineralization without evidence of an acute fracture. Disc intersp acing is normal. There is straightening with slight reversal of the normal cervical lordosis. No sign ificant malalignment is otherwise seen to suggest an acute injury. The bilateral neural foramina appe ar patent. Pedicles are intact. Soft tissues are within normal limits. The odontoid appears intact. If clinical concern persists, CT should be obtained for further evaluation. IMPRESSION: 1. No radiographic evidence of acute fracture or traumatic malalignment. 2. Straightening and mild reversal of the normal cervical lordosis, can be seen with pain, positioni ng, muscular spasm.
[2023-05-28] MEDS: KETOROLAC 15 MG/ML 1 ML VIAL IVP PRN (02:07)
[2023-05-28] MEDS: levETIRAcetam 500 MG TAB PO SCH (08:39)
[2023-05-28] MEDS: ACETAMINOPHEN TAB 325 MG TAB PO PRN (08:40)
--- NOTE | 2023-05-28 11:59 | P.HPIM ---
History of Present Illness Patient is a pleasant 26-year-old female came in after she had a seizure episode. Patient did do to have neck patient was on Keppra twice a day patient has been under some stress and missed her dose of Keppra. Patient apparently castro d multiple episodes in the past patient was evaluated by neurology and the recommending increasing Keppra to 750 twice a day and patient is undergoing prolonged EEG. Depending on the EEG results patient may be able to be discharged today with increased dose of Keppra. Patient received IV Keppra Ke ppra levels are pending. Patient does have anion gap may have had lactic acidosis although lactic acid was not obtained in ER. REVIEW OF SYSTEMS: CONSTITUTIONAL: No fever, no malaise, no fatigue. HEENT: No recent visual problems or hearing problems. Denied any sore throat. CARDIOVASCULAR: No chest pain, orthopnea, PND, no palpitations, no syncope. PULMONARY: No shortness of breath, no cough, no hemoptysis. GASTROINTESTINAL: No diarrhea, no nausea, no vomiting, no abdominal pain. NEUROLOGICAL: No headaches, no weakness, no numbness. HEMATOLOGICAL: Denies any bleeding or petechiae. GENITOURINARY: Denies any burning micturition, frequency, or urgency. MUSCULOSKELETAL/RHEUMATOLOGICAL: Denies any joint pain, swelling, or any muscle pain. ENDOCRINE: Denies any polyuria or polydipsia. The rest of the 14-point review of systems is negative. PHYSICAL EXAMINATION: GENERAL: The patient is alert and oriented x3, not in any acute distress. Well developed, well nourished. HEENT: Pupils are round and equally reacting to light. EOMI. No scleral icterus. No conjunctival pallor. Normocephalic, atraumatic. No pharyngeal erythema. No thyromegaly. CARDIOVASCULAR: S1 and S2 present. No murmurs, rubs, or gallops. PULMONARY: Chest is clear to auscultation, no wheezing or crackles. ABDOMEN: Soft, nontender, nondistended, normoactive bowel sounds. No palpable organomegaly. MUSCULOSKELETAL: No joint swelling or deformity. EXTREMITIES: No cyanosis, clubbing, or pedal edema. NEUROLOGICAL: Gross neurological examination did not reveal any focal deficits. SKIN: No rashes. Assessment and plan -Breakthrough seizures secondary to missing Keppra doses although patient was having seizures even with these medications because of which neurology is recommending increasing dose of Keppra patient follow-up with neurology as an outpatient CT of the head was negative for any acute abnormality. Patient is undergoing EEG today. -Leukocytosis: Reactive secondary to seizure -Anion gap metabolic acidosis probably lactic acidosis secondary to seizure no further intervention at this time patient received IV fluids Patient probably can be discharged later today with send 50 mg twice a day of Keppra and follow-up with PCP and her neurologist as an outpatient Past Medical History Past Medical History: Seizure Disorder Additional Past Medical History / Comment(s): SEIZURE DISORDER History of Any Multi-Drug Resistant Organisms: None Reported Past Surgical History: No Surgical Hx Reported Additional Past Surgical History / Comment(s): wisdom teeth Past Anesthesia/Blood Transfusion Reactions: No Reported Reaction Additional Past Anesthesia/Blood Transfusion Reaction / Comment(s): HAS NOT HAD GENERAL ANESTHESIA. Past Psychological History: Anxiety Smoking Status: Vaper Past Alcohol Use History: Occasional Past Drug Use History: None Reported, Marijuana - Past Family History Mother Family Medical History: No Reported History Medications and Allergies Home Medications Medication Instructions Recorded Confirmed Type levETIRAcetam [Keppra] 750 mg PO Q12HR #60 tab 05/28/23 Rx Allergies Allergy/AdvReac Type Severity Reaction Status Date / Time No Known Allergies Allergy Verified 05/28/23 08:18 Physical Exam Vitals: Vital Signs Temp Pulse Pulse Resp BP BP BP 05/28/23 07:00 98.2 F 61 14 108/71 05/28/23 00:36 98.4 F 69 16 106/69 05/28/23 00:21 79 18 118/74 05/27/23 20:14 98.3 F 105 H 16 132/82 Pulse Ox 05/28/23 07:00 98 05/28/23 00:36 97 05/28/23 00:21 97 05/27/23 20:14 97 Intake and Output 05/27/23 05/28/23 05/28/23 22:59 06:59 14:59 Intake Total 1000 Balance 1000 Intake: IV 1000 Invasive Line 1 1000 Other: Voiding Method Toilet # Voids 1 Weight 104.326 kg 104.326 kg Results CBC & Chem 7: 05/27/23 20:45 05/27/23 20:45 Labs: Abnormal Lab Results - Last 24 Hours (Table) 05/27/23 05/27/2305/26/24 Range/Units 20:45 20:45 20:45 WBC 11.3 H (3.8-10.6) k/uL RBC 5.41 H (3.80-5.40) m/uL Hgb 16.7 H (11.4-16.0) gm/dL Hct 49.6 H (34.0-46.0) % Neutrophils # 8.6 H (1.3-7.7) k/uL Carbon Dioxide 20 L (22-30) mmol/L Glucose 103 H (74-99) mg/dL U Marijuana (THC) Screen Detected H (NotDetected)
--- NOTE | 2023-05-28 12:00 | P.DS ---
Providers Date of admission: 05/27/23 22:57 Attending physician: Joe Galvan Consults: 05/27/23 22:54 Consult Physician Stat Consulting Provider: Adrian Huber Consult Reason/Comments: seizure Do you want consulting provider notified?: Yes, Notify in am Primary care physician: Stated None Hospital Course: Patient is a pleasant 26-year-old female came in after she had a seizure episode. Patient did do to have neck patient was on Keppra twice a day patient has been under some stress and missed her dose of Keppra. Patient apparently had multiple episodes in the past patient was evaluated by neurology and the recommending increasing Keppra to 750 twice a day and patient is undergoing prolonged EEG. Depending on the EEG results patient may be able to be discharged today with increased dose of Keppra. Patient received IV Keppra Keppra levels are pending. Patient does have anion gap may have had lactic acidosis although lactic acid was not obtained in ER. PHYSICAL EXAMINATION: GENERAL: The patient is alert and oriented x3, not in any acute distress. Well developed, well nourished. HEENT: Pupils are round and equally reacting to light. EOMI. No scleral icterus. No conjunctival pallor. Normocephalic, atraumatic. No pharyngeal erythema. No thyromegaly. CARDIOVASCULAR: S1 and S2 present. No murmurs, rubs, or gallops. PULMONARY: Chest is clear to auscultation, no wheezing or crackles. ABDOMEN: Soft, nontender, nondistended, normoactive bowel sounds. No palpable organomegaly. MUSCULOSKELETAL: No joint swelling or deformity. EXTREMITIES: No cyanosis, clubbing, or pedal edema. NEUROLOGICAL: Gross neurological examination did not reveal any focal deficits. SKIN: No rashes. Assessment and plan -Breakthrough seizures secondary to missing Keppra doses although patient was having seizures even with these medications because of which neurology is recommending increasing dose of Keppra patient follow-up with neurology as an outpatient CT of the head was negative for any acute abnormality. Patient is undergoing EEG today. -Leukocytosis: Reactive secondary to seizure -Anion gap metabolic acidosis probably lactic acidosis secondary to seizure no further intervention at this time patient received IV fluids Patient probably can be discharged later today with send 50 mg twice a day of Keppra and follow-up with PCP and her neurologist as an outpatient Patient Condition at Discharge: Good Plan - Discharge Summary Discharge Rx Participant: No New Discharge Prescriptions: New levETIRAcetam [Keppra] 750 mg PO Q12HR #60 tab Discontinued levETIRAcetam [Keppra] 500 mg PO Q12HR #60 tab Discharge Medication List levETIRAcetam [Keppra] 750 mg PO Q12HR #60 tab 05/28/23 [Rx] Follow up Appointment(s)/Referral(s): Amanda Stiles MD [STAFF PHYSICIAN] - 1 Week None,Stated [Primary Care Provider] - 1-2 days Patient Instructions/Handouts: Seizure/Epilepsy Discharge Instructions & Follow-Up Discharge Disposition: HOME SELF-CARE
[2023-05-28 15:13] VITALS: BP 120/75; PULSE 75; RESP 16; TEMP 98.3
--- NOTE | 2023-05-29 02:40 | EEG ---
ELECTROENCEPHALOGRAM REPORT TECHNIQUE: This is a report from a prolonged 2.5 hour inpatient digital EEG performed using the 10/20 international electrode placement system. HISTORY: The patient is a 27-year-old female with history of seizure disorder since age 15 or 16, increasing frequency of seizures lately. The patient has not been treated with seizure medications until recently started on Keppra. CURRENT MEDICATIONS: Keppra 500 mg b.i.d. FINDINGS: Recording start time: 05/28/2023 at 11:12 a.m. Recording end time: 05/28/2023 at 13:42 p.m. EVENTS: During this 2.5-hour continuous video EEG, no clinical seizures were recorded. BACKGROUND: Background consists of well developed, well regulated, moderate voltage activity in 9 hertz alpha. Background is posterior dominant and is reactive to eye opening and closing. ACTIVATION: Photic stimulation. No driving response seen. Hyperventilation is not performed. Sleep stage 1 was seen, but stage 2 sleep was not seen. ABNORMALITIES: Four episodes of paroxysmal high-amplitude, frontally maximal, generalized sharp and slow wave at 3 Hertz seen lasting for about 1 to 3 seconds. IMPRESSION: Abnormal 2.5-hour video EEG. There is presence of 4 incidence of paroxysmal high- amplitude, frontally maximal, 3 Hz generalized sharp and slow wave activity seen, lasting for 1 to 3 seconds. There was no motor activity seen during these events. This EEG implies tendency for generalized seizures and may be considered an interictal expression of primary generalized epilepsy. Clinical correlation is strongly recommended. BILLY / SERGEI: [id number] / CALIN
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
== END 2023-05-28 19:07 | disposition home or self-care (01) ==
LOC: EC 20:11 → 6NMEDSUR 22:57
PROVIDERS: ADMIT Hospitalist; ATTEND Hospitalist
DX: G40.909 Epilepsy, unspecified, not intractable, without status epilepticus (principal); E87.20 Acidosis, unspecified; T42.6X6A Underdosing of other antiepileptic and sedative-hypnotic drugs, initial encounter; Z91.128 Patient's intentional underdosing of medication regimen for other reason; D72.829 Elevated white blood cell count, unspecified; F17.290 Nicotine dependence, other tobacco product, uncomplicated; Z79.899 Other long term (current) drug therapy; F10.10 Alcohol abuse, uncomplicated; F12.90 Cannabis use, unspecified, uncomplicated
CPT/HCPCS: 96376; 96361; 96374; 96375; 99285; 36415; 95713; 95700; 93005; 80053; 80177; 83735; 85025; 81025; 80306; 72050; 70450; G0378 ×2; J2765; J1885 ×2; 95712

== ENCOUNTER 2023-06-22 08:32 | Emergency (ER) | payer OTHER ==
[2023-06-22 09:10] LABS: Basophils # (A) 0.1 k/uL (0-0.2); Basophils % (A) 1 %; Eosinophils # (A) 0.1 k/uL (0-0.7); Eosinophils % (A) 1 %; HGB 15.1 gm/dL (11.4-16.0); Lymphocytes # (A) 2.8 k/uL (1.0-4.8); Lymphocytes % (A) 27 %; MCH 30.7 pg (25.0-35.0); MCHC 32.8 g/dL (31.0-37.0); MCV 93.5 fL (80.0-100.0); Mean Platelet Volume 8.9; Monocytes # (A) 0.5 k/uL (0-1.0); Monocytes % (A) 4 %; Neutrophils % (A) 66 %; Platelet Count 219 k/uL (150-450); RBC 4.93 m/uL (3.80-5.40); RDW 12.8 % (11.5-15.5); WBC 10.6 k/uL (3.8-10.6)
[2023-06-22] MEDS: levETIRAcetam IV 2,000 MG in SODIUM CHLORIDE 0.9% 250 ML IVPB ONE (09:15)
[2023-06-22 09:23] LABS: AST 23 U/L (14-36); African American GFR (CKD) >90 (>60 ml/min/1.73 sqM); Albumin 4.5 g/dL (3.5-5.0); Alkaline Phosphatase 99 U/L (38-126); Anion Gap 14 mmol/L; Blood Urea Nitrogen 11 mg/dL (7-17); Calcium 9.2 mg/dL (8.4-10.2); Carbon Dioxide 16 mmol/L (22-30); Chloride 107 mmol/L (98-107); Glucose 108 mg/dL (74-99); Non-African American GFR(CKD) >90 (>60 ml/min/1.73 sqM); Potassium 4.1 mmol/L (3.5-5.1); Sodium 137 mmol/L (137-145); Total Bilirubin 0.3 mg/dL (0.2-1.3); Total Protein 6.8 g/dL (6.3-8.2)
[2023-06-22 09:28] LABS: ALT 26 U/L (4-34)
--- NOTE | 2023-06-22 10:04 | ED ---
General Adult HPI - General Chief complaint: Seizure Stated complaint: SEIZURE Time Seen by Provider: 06/22/23 08:35 Source: patient, RN notes reviewed, old records reviewed Mode of arrival: wheelchair Limitations: no limitations - History of Present Illness Initial comments: This is a 27-year-old female who presents to the emergency department complain ing of having had a seizure. Patient worked all night and did not take her Keppra this morning and she was about to go out with a friend to have breakfast and she had a seizure last about a minute and she was a little postictal according to the friend and now she is currently back to her baseline. Patient states she has a mild headache other than that she feels normal. Patient states she only takes Keppra once a day even though she supposed to be taking it twice a day. Patient denies any recent fever chills or cough or patient has any recent abdominal pain nausea vomiting or diarrhea - Related Data Previous Rx's Medication Instructions Recorded levETIRAcetam [Keppra] 750 mg PO Q12HR #60 tab 05/28/23 Allergies Allergy/AdvReac Type Severity Reaction Status Date / Time No Known Allergies Allergy Verified 06/22/23 10:06 Review of Systems ROS Statement: Those systems with pertinent positive or pertinent negative responses have been documented in the HPI. ROS Other: All systems not noted in ROS Statement are negative. Past Medical History Past Medical History: Seizure Disorder Additional Past Medical History / Comment(s): SEIZURE DISORDER History of Any Multi-Drug Resistant Organisms: None Reported Past Surgical History: No Surgical Hx Reported Additional Past Surgical History / Comment(s): wisdom teeth Past Anesthesia/Blood Transfusion Reactions: No Reported Reaction Additional Past Anesthesia/Blood Transfusion Reaction / Comment(s): HAS NOT HAD GENERAL ANESTHESIA. Past Psychological History: Anxiety Smoking Status: Vaper Past Alcohol Use History: Occasional Past Drug Use History: None Reported, Marijuana - Past Family History Mother Family Medical History: No Reported History General Exam - General Exam Comments Initial Comments: GENERAL: Patient is well-developed and well-nourished. Patient is nontoxic and well- hydrated and is in no acute distress. ENT: Neck is soft and supple. No significant lymphadenopathy is noted. Oropharynx is clear. Moist mucous membranes. Neck has full range of motion without eliciting any pain. EYES: The sclera were anicteric and conjunctiva were pink and moist. Extraocular movements were intact and pupils were equal round and reactive to light. Eyelids were unremarkable. PULMONARY: Unlabored respirations. Good breath sounds bilaterally. No audible rales rhonchi or wheezing was noted. CARDIOVASCULAR: There is a regular rate and rhythm without any murmurs gallops or rubs. ABDOMEN: Soft and nontender with normal bowel sounds. SKIN: Skin is clear with no lesions or rashes and otherwise unremarkable. NEUROLOGIC: Patient is alert and oriented x3. Cranial nerves II through XII are grossly intact. Motor and sensory are also intact. Normal speech, volume and content. Symmetrical smile. MUSCULOSKELETAL: Normal extremities with adequate strength and full range of motion. LYMPHATICS: No significant lymphadenopathy is noted PSYCHIATRIC: Normal psychiatric evaluation. Limitations: no limitations Course Vital Signs 06/22/23 06/22/23 06/22/23 08:33 09:04 09:43 Temperature 98.2 F Pulse Rate 98 69 68 Respiratory 20 16 16 Rate Blood Pressure 138/78 113/82 112/77 O2 Sat by Pulse 98 93 L 92 L Oximetry 06/22/23 10:37 Temperature 98.0 F Pulse Rate 68 Respiratory 16 Rate Blood Pressure 110/71 O2 Sat by Pulse 93 L Oximetry Medical Decision Making - Medical Decision Making EKG is interpreted by myself but EKG shows a sinus rhythm at 94 bpm parable 147 QRS 107 QT interval 358 QTc is 410. Patient's EKG shows no ST segment ovation or depression. Was pt. sent in by a medical professional or institution (, PA, CLIENT FINANCE ANALYST, urgent care, hospital, or long term...) When possible be specific @ -No Did you speak to anyone other than the patient for history (EMS, parent, family, police, friend...)? What history was obtained from this source @ -Patient's friend gave all the history because she was there when the patient had a seizure Did you review nursing and triage notes (agree or disagree)? Why? @ -I reviewed and agree with nursing and triage notes Were old charts reviewed (outside hosp., previous admission, EMS record, old EKG, old radiological studies, urgent care reports/EKG's, long term records)? Report findings @ -I looked at the patient's prior lab work and compared to today's there was no change in the electrolytes no change in the CBC. Differential Diagnosis (chest pain, altered mental status, abdominal pain women, abdominal pain men, vaginal bleeding, weakness, fever, dyspnea, syncope, headache, dizziness, GI bleed, back pain, seizure, CVA, palpatations, mental health, musculoskeletal)? @ -Differential Seizure: Recurrent seizure disorder, febrile seizure, alcohol withdrawal, stimulants, meningitis, encephalitis, intercranial hemorrhage, intracranial tumor, stroke, eclampsia, thyrotoxicosis, hypocalcemia, hyponatremia, hypernatremia, hypomagnesemia, psychogenic, this is not meant to be an all-inclusive list. EKG interpreted by me (3pts min.). @ -As above X-rays interpreted by me (1pt min.). @ -None done CT interpreted by me (1pt min.). @ -None done U/S interpreted by me (1pt. min.). @ -None done What testing was considered but not performed or refused? (CT, X-rays, U/S, labs)? Why? @ -None What meds were considered but not given or refused? Why? @ -None Did you discuss the management of the patient with other professionals (professionals i.e. , PA, CLIENT FINANCE ANALYST, lab, RT, psych nurse, social worker masters, artist model, teacher, strike operations officer, machine adjuster leader case trim)? Give summary @ -No Was smoking cessation discussed for >3mins.? @ -No Was critical care preformed (if so, how long)? @ -No Were there social determinants of health that impacted care today? How? (Homelessness, low income, unemployed, alcoholism, drug addiction, transportatio n, low edu. Level, literacy, decrease access to med. care, custodial, rehab)? @ -No Was there de-escalation of care discussed even if they declined (Discuss DNR or withdrawal of care, Hospice)? DNR status @ -No What co-morbidities impacted this encounter? (DM, HTN, Smoking, COPD, CAD, Cancer, CVA, ARF, Chemo, Hep., AIDS, mental health diagnosis, sleep apnea, morbid obesity)? @ -None Was patient admitted / discharged? Hospital course, mention meds given and route, prescriptions, significant lab abnormalities, going to OR and other pertinent info. @ -Patient was given some fluid given 2000 g of Keppra and Tylenol for headache. Patient was doing much better she had no further seizures in the emergency department she will follow-up and hopefully start taking her medicines as prescribed Undiagnosed new problem with uncertain prognosis? @ -No Drug Therapy requiring intensive monitoring for toxicity (Heparin, Nitro, Insulin, Cardizem)? @ -No Were any procedures done? @ -None Diagnosis/symptom? @ -Generalized seizure Acute, or Chronic, or Acute on Chronic? @ -Acute Uncomplicated (without systemic symptoms) or Complicated (systemic symptoms)? @ -Complicated Side effects of treatment? @ -No Exacerbation, Progression, or Severe Exacerbation? @ -No Poses a threat to life or bodily function? How? (Chest pain, [place], [place], pneumonia, PE, COPD, DKA, ARF, appy, cholecystitis, CVA, Diverticulitis, Homicidal, Suicidal, threat to staff... and all critical care pts) @ -No Diagnosis/symptom? @ -Noncompliant with seizure medication Acute, or Chronic, or Acute on Chronic? @ -Chronic Uncomplicated (without systemic symptoms) or Complicated (systemic symptoms)? @ -Complicated Side effects of treatment? @ -None Exacerbation, Progression, or Severe Exacerbation] @ -No Poses a threat to life or bodily function? @ -No - Lab Data Result diagrams: 06/22/23 09:01 06/22/23 09:01 Lab Results 06/22/23 06/22/23 Range/Units 09:01 09:01 WBC 10.6 (3.8-10.6) k/uL RBC 4.93 (3.80-5.40) m/uL Hgb 15.1 (11.4-16.0) gm/dL Hct 46.0 (34.0-46.0) % MCV 93.5 (80.0-100.0) fL MCH 30.7 (25.0-35.0) pg MCHC 32.8 (31.0-37.0) g/dL RDW 12.8 (11.5-15.5) % Plt Count 219 (150-450) k/uL MPV 8.9 Neutrophils % 66 % Lymphocytes % 27 % Monocytes % 4 % Eosinophils % 1 % Basophils % 1 % Neutrophils # 7.0 (1.3-7.7) k/uL Lymphocytes # 2.8 (1.0-4.8) k/uL Monocytes # 0.5 (0-1.0) k/uL Eosinophils # 0.1 (0-0.7) k/uL Basophils # 0.1 (0-0.2) k/uL Sodium 137 (137-145) mmol/L Potassium 4.1 (3.5-5.1) mmol/L Chloride 107 (98-107) mmol/L Carbon Dioxide 16 L (22-30) mmol/L Anion Gap 14 mmol/L BUN 11 (7-17) mg/dL Creatinine 0.61 (0.52-1.04) mg/dL Est GFR (CKD-EPI)AfAm >90 (>60 ml/min/1.73 sqM) Est GFR (CKD-EPI)NonAf >90 (>60 ml/min/1.73 sqM) Glucose 108 H (74-99) mg/dL Calcium 9.2 (8.4-10.2) mg/dL Total Bilirubin 0.3 (0.2-1.3) mg/dL AST 23 (14-36) U/L ALT 26 (4-34) U/L Alkaline Phosphatase 99 (38-126) U/L Total Protein 6.8 (6.3-8.2) g/dL Albumin 4.5 (3.5-5.0) g/dL Disposition Clinical Impression: Generalized seizure, Noncompliance with medication regimen Disposition: HOME SELF-CARE Instructions (If sedation given, give patient instructions): Seizure/Epilepsy Discharge Instructions & Follow-Up, Recurrent Seizures in Adults (ED) Is patient prescribed a controlled substance at d/c from ED?: No Referrals: None,Stated [Primary Care Provider] - 1-2 days Time of Disposition: 10:04
[2023-06-22 10:08] VITALS: PULSE 68; RESP 16
[2023-06-22] MEDS: ACETAMINOPHEN TAB 500 MG TAB PO STA (10:35)
[2023-06-22 10:51] VITALS: BP 110/71; TEMP 98
== END 2023-06-22 10:43 | disposition home or self-care (01) ==
LOC: EC 08:32
DX: G40.409 Other generalized epilepsy and epileptic syndromes, not intractable, without status epilepticus (principal); F17.290 Nicotine dependence, other tobacco product, uncomplicated; Z91.148 Patient's other noncompliance with medication regimen for other reason
CPT/HCPCS: 36415; 80053; 85025; 99284; 96365; J1953

== ENCOUNTER 2023-08-10 08:56 | Emergency (ER) | payer OTHER ==
--- NOTE | 2023-08-10 09:41 | ED ---
General Adult HPI - General Chief complaint: Seizure Stated complaint: Seizure Time Seen by Provider: 08/10/23 09:05 Source: patient, EMS, RN notes reviewed Mode of arrival: EMS Limitations: no limitations - History of Present Illness Initial comments: Patient is a 27-year-old female present to the emergency department with seizure. Patient does have seizures a couple times per month, last was around 3 weeks ago. Patient did just recently see her neurologist. Patient had her Keppra increased from 500 twice a day and now up to 750 twice a day. Patient did sustain abrasions to her face. Patient states she does feel tired as she worked last night. Patient does not feel confused. No other area of injury or concern. No recent illness. - Related Data Previous Rx's Medication Instructions Recorded levETIRAcetam [Keppra] 750 mg PO Q12HR #60 tab 05/28/23 Allergies Allergy/AdvReac Type Severity Reaction Status Date / Time No Known Allergies Allergy Verified 06/22/23 10:06 Review of Systems ROS Statement: Those systems with pertinent positive or pertinent negative responses have been documented in the HPI. ROS Other: All systems not noted in ROS Statement are negative. Constitutional: Denies: fever Eyes: Denies: eye pain ENT: Denies: ear pain Respiratory: Denies: cough Cardiovascular: Denies: chest pain Endocrine: Reports: fatigue Gastrointestinal: Denies: abdominal pain Skin: Reports: other (Abrasions) Past Medical History Past Medical History: Seizure Disorder Additional Past Medical History / Comment(s): SEIZURE DISORDER History of Any Multi-Drug Resistant Organisms: None Reported Past Surgical History: No Surgical Hx Reported Additional Past Surgical History / Comment(s): wisdom teeth Past Anesthesia/Blood Transfusion Reactions: No Reported Reaction Additional Past Anesthesia/Blood Transfusion Reaction / Comment(s): HAS NOT HAD GENERAL ANESTHESIA. Past Psychological History: Anxiety Smoking Status: Vaper Past Alcohol Use History: Occasional Past Drug Use History: None Reported, Marijuana - Past Family History Mother Family Medical History: No Reported History Occupational Seizure History - Commerical Driving History Currently uses [employer] for employment (including self-employed).: No General Exam Limitations: no limitations General appearance: alert, in no apparent distress Head exam: Present: normocephalic Eye exam: Present: normal appearance, PERRL, EOMI ENT exam: Present: normal oropharynx, other (No dental injury. Abrasions to the nose, upper lip and chin without bony tenderness.) Neck exam: Present: normal inspection. Absent: tenderness Respiratory exam: Present: normal lung sounds bilaterally Cardiovascular Exam: Present: regular rate, normal rhythm GI/Abdominal exam: Present: soft. Absent: tenderness Extremities exam: Present: normal inspection, full ROM. Absent: tenderness Neurological exam: Present: alert, CN II-XII intact. Absent: motor sensory deficit Psychiatric exam: Present: normal affect, normal mood Skin exam: Present: abrasion Course Vital Signs 08/10/23 09:03 Pulse Rate 72 Respiratory 17 Rate Blood Pressure 114/83 O2 Sat by Pulse 97 Oximetry Medical Decision Making - Medical Decision Making Was pt. sent in by a medical professional or institution (, PA, TELECOMMUNICATION OPERATOR, urgent care, hospital, or fci...) When possible be specific @ -No Did you speak to anyone other than the patient for history (EMS, parent, family, police, friend...)? What history was obtained from this source @ -Male is present and helps confirm history Did you review nursing and triage notes (agree or disagree)? Why? @ -I reviewed and agree with nursing and triage notes Were old charts reviewed (outside hosp., previous admission, EMS record, old EKG, old radiological studies, urgent care reports/EKG's, fci records)? Report findings @ -No old charts were reviewed Differential Diagnosis (chest pain, altered mental status, abdominal pain women, abdominal pain men, vaginal bleeding, weakness, fever, dyspnea, syncope, headache, dizziness, GI bleed, back pain, seizure, CVA, palpatations, mental health, musculoskeletal)? @ -Differential Seizure: Recurrent seizure disorder, febrile seizure, alcohol withdrawal, stimulants, meningitis, encephalitis, intercranial hemorrhage, intracranial tumor, stroke, eclampsia, thyrotoxicosis, hypocalcemia, hyponatremia, hypernatremia, hypomagnesemia, psychogenic, this is not meant to be an all-inclusive list. EKG interpreted by me (3pts min.). @ -As above X-rays interpreted by me (1pt min.). @ -None done CT interpreted by me (1pt min.). @ -CT brain shows no acute process U/S interpreted by me (1pt. min.). @ -None done What testing was considered but not performed or refused? (CT, X-rays, U/S, labs)? Why? @ -None What meds were considered but not given or refused? Why? @ -None Did you discuss the management of the patient with other professionals (professionals i.e. , PA, TELECOMMUNICATION OPERATOR, lab, RT, psych nurse, social media content manager, kindergarten tutor, teacher, marketing officer, catalytic case operator)? Give summary @ -No Was smoking cessation discussed for >3mins.? @ -No Was critical care preformed (if so, how long)? @ -No Were there social determinants of health that impacted care today? How? (Homelessness, low income, unemployed, alcoholism, drug addiction, transportation, low edu. Level, literacy, decrease access to med. care, [facility], rehab)? @ -No Was there de-escalation of care discussed even if they declined (Discuss DNR or withdrawal of care, Hospice)? DNR status @ -No What co-morbidities impacted this encounter? (DM, HTN, Smoking, COPD, CAD, Cancer, CVA, ARF, Chemo, Hep., AIDS, mental health diagnosis, sleep apnea, morbid obesity)? @ -None Was patient admitted / discharged? Hospital course, mention meds given and r oute, prescriptions, significant lab abnormalities, going to OR and other pertinent info. @ -Patient reevaluated and still resting comfortably in bed, still symptom- free. Patient would like to be discharged. Patient is updated on results and need for follow-up especially with neurology in the next couple of days to review medications. Undiagnosed new problem with uncertain prognosis? @ -No Drug Therapy requiring intensive monitoring for toxicity (Heparin, Nitro, Insulin, Cardizem)? @ -No Were any procedures done? @ -No Diagnosis/symptom? @ -Breakthrough seizure Acute, or Chronic, or Acute on Chronic? @ -Acute Uncomplicated (without systemic symptoms) or Complicated (systemic symptoms)? @ -Default Side effects of treatment? @ -No Exacerbation, Progression, or Severe Exacerbation? @ -No Poses a threat to life or bodily function? How? (Chest pain, USA, [place], pneumonia, PE, COPD, DKA, ARF, appy, cholecystitis, CVA, Diverticulitis, Homicidal, Suicidal, threat to staff... and all critical care pts) @ -No Disposition Clinical Impression: Generalized seizure Disposition: HOME SELF-CARE Condition: Stable Instructions (If sedation given, give patient instructions): Seizure/Epilepsy Discharge Instructions & Follow-Up, Recurrent Seizures in Adults (ED) Additional Instructions: Please do follow-up with your primary care physician and neurologist in the next day or 2 for recheck. Please discuss with them your dosing on Keppra. Please resume Keppra as previous, what was provided today is just an additional dose. Return for increased seizures, illness, worsening symptoms or any other concerns. Is patient prescribed a controlled substance at d/c from ED?: No Referrals: Joshua Maya MD [Primary Care Provider] - 1-2 days Time of Disposition: 10:46
[2023-08-10] MEDS: levETIRAcetam 500 MG TAB PO STA (09:56)
[2023-08-10] MEDS: BACITRACIN OINT 1 EACH PACKET TOPICAL ONE (09:59)
--- NOTE | 2023-08-10 10:28 | CT ---
EXAMINATION TYPE: CT brain wo con DATE OF EXAM: 08/10/2023 COMPARISON: 05/27/2023 HISTORY: 27-year-old female seizure TECHNIQUE: Examination was done in axial plane without intravenous contrast. Coronal and sagittal r econstructions performed. CT DLP: 1043.4 mGycm Automated exposure control for dose reduction was used. FINDINGS: There is no evidence of acute intracranial hemorrhage, acute ischemic changes, mass, mass-effect, or extra-axial fluid collection. There is no effacement of cerebral sulci or basal subarachnoid cister ns. There is no hydrocephalus. There is no midline shift. Handy-white matter distinction is preserv ed. Paranasal sinuses and mastoid air cells well pneumatized. Orbits and globes are intact. IMPRESSION: No acute intracranial abnormality seen.
[2023-08-10 10:34] VITALS: BP 114/83; RESP 17
[2023-08-10 11:30] VITALS: PULSE 89
== END 2023-08-10 11:17 | disposition home or self-care (01) ==
LOC: EC 08:56
DX: G40.409 Other generalized epilepsy and epileptic syndromes, not intractable, without status epilepticus (principal); F17.290 Nicotine dependence, other tobacco product, uncomplicated
CPT/HCPCS: 70450; 99284

== ENCOUNTER 2024-05-17 10:31 | Emergency (ER) | payer OTHER ==
[2024-05-17 10:36] VITALS: RESP 18; TEMP 97.9
--- NOTE | 2024-05-17 10:48 | ED ---
General Adult HPI - General Chief complaint: Seizure Stated complaint: Seizure Time Seen by Provider: 05/17/24 10:38 Source: patient, RN notes reviewed, old records reviewed Mode of arrival: ambulatory Limitations: no limitations - History of Present Illness Initial comments: Patient is a 28-year-old female who presents emergency department for breakthrough seizure. Has a history of seizure disorder. Is on Keppra twice a day and states she has been compliant. Had a seizure episode earlier this morning proximately 2 hours prior to arrival. He did she did end up on the ground and did strike the side of her face on something. Resulted in bruising over the left cheek. Also has bitten her tongue and cheeks. Denies any blurry vision. Denies headaches. Denies fevers, chills, cough. Denies chest pain or shortness of breath. Denies nausea or vomiting or abdominal pain. Does not follow-up with a neurologist. Does follow-up with your PCP. Presents for further evaluation at this time. - Related Data Previous Rx's Medication Instructions Recorded levETIRAcetam [Keppra] 750 mg PO Q12HR #60 tab 05/28/23 levETIRAcetam [Keppra] 1,000 mg PO Q12HR 30 Days #60 tab 05/17/24 Allergies Allergy/AdvReac Type Severity Reaction Status Date / Time No Known Allergies Allergy Verified 05/17/24 10:36 Review of Systems ROS Statement: Those systems with pertinent positive or pertinent negative responses have been documented in the HPI. Review of Systems: CONST: Denies fever EYES: Denies blurry vision ENT: Endorses left cheek pain C/V: Denies Chest pain RESP: Denies shortness of breath GI: Denies abdominal pain : Denies dysuria SKIN: Denies rash. MSK: Denies joint pain. NEURO: Denies headache ROS Other: All systems not noted in ROS Statement are negative. Past Medical History Past Medical History: Seizure Disorder Additional Past Medical History / Comment(s): SEIZURE DISORDER History of Any Multi-Drug Resistant Organisms: None Reported Past Surgical History: No Surgical Hx Reported Additional Past Surgical History / Comment(s): wisdom teeth Past Anesthesia/Blood Transfusion Reactions: No Reported Reaction Additional Past Anesthesia/Blood Transfusion Reaction / Comment(s): HAS NOT HAD GENERAL ANESTHESIA. Past Psychological History: Anxiety Smoking Status: Vaper Past Alcohol Use History: Occasional Past Drug Use History: None Reported, Marijuana - Past Family History Mother Family Medical History: No Reported History General Exam - General Exam Comments Initial Comments: General: Appears in no acute distress. HEAD: Swelling and early bruising over the left cheek. Negative Menjivar sign. Negative raccoon eyes. EYES: PERRLA, EOMI, conjunctiva normal, no discharge. Pupils are 3 mm and equal bilaterally. ENT: Hearing grossly intact, normal oropharynx. Patient has bitten her tongue on both sides and also bit the inside of her left cheek. No obvious bleeding. RESPIRATORY: Clear breath sounds bilaterally. No wheezes, rales, or rhonchi. C/V: Regular rate and rhythm. S1 and S2 auscultated, no edema, peripheral pulses 2+ and intact throughout ABD: Abd is soft, nontender, nondistended EXT: Normal range of motion, no obvious deformity SKIN: No rashes or lesions observed on exposed skin. NEURO: Alert and oriented x 4. No focal deficits. Limitations: no limitations Course Vital Signs 05/17/24 10:34 Temperature 97.9 F Pulse Rate 73 Respiratory 18 Rate Blood Pressure 117/81 O2 Sat by Pulse 99 Oximetry Medical Decision Making - Medical Decision Making Was pt. sent in by a medical professional or institution (, PA, FREIGHT CAR INSPECTOR, urgent c are, hospital, or skilled nursing...) When possible be specific @ -No Did you speak to anyone other than the patient for history (EMS, parent, family, police, friend...)? What history was obtained from this source @ -No Did you review nursing and triage notes (agree or disagree)? Why? @ -I reviewed and agree with nursing and triage notes Were old charts reviewed (outside hosp., previous admission, EMS record, old EKG, old radiological studies, urgent care reports/EKG's, skilled nursing records)? Report findings @ -Old charts reviewed showing patient is on Keppra 750 mg twice daily. Frequent visits for breakthrough seizures, most recent was July 2023. Compared today's EKG with EKG from June 2023, no obvious acute changes. Differential Diagnosis (chest pain, altered mental status, abdominal pain women, abdominal pain men, vaginal bleeding, weakness, fever, dyspnea, syncope, headache, dizziness, GI bleed, back pain, seizure, CVA, palpatations, mental health, musculoskeletal)? @ -Differential Seizure: Recurrent seizure disorder, febrile seizure, alcohol withdrawal, stimulants, meningitis, encephalitis, intercranial hemorrhage, intracranial tumor, stroke, eclampsia, thyrotoxicosis, hypocalcemia, hyponatremia, hypernatremia, hypomagnesemia, psychogenic, this is not meant to be an all-inclusive list. EKG interpreted by me (3pts min.). @ -As above X-rays interpreted by me (1pt min.). @ -None done CT interpreted by me (1pt min.). @ -CT brain and facial bones negative for any obvious acute injury or process. U/S interpreted by me (1pt. min.). @ -None done What testing was considered but not performed or refused? (CT, X-rays, U/S, labs)? Why? @ -None What meds were considered but not given or refused? Why? @ -None Did you discuss the management of the patient with other professionals (professionals i.e. , PA, FREIGHT CAR INSPECTOR, lab, RT, psych nurse, outreach and education social worker, hogshead press operator, teacher, aircraft electronics technical officer, returned case inspector)? Give summary @ -No Was smoking cessation discussed for >3mins.? @ -No Was critical care preformed (if so, how long)? @ -No Were there social determinants of health that impacted care today? How? (Homelessness, low income, unemployed, alcoholism, drug addiction, transportation, low edu. Level, literacy, decrease access to med. care, longterm, rehab)? @ -No Was there de-escalation of care discussed even if they declined (Discuss DNR or withdrawal of care, Hospice)? DNR status @ -No What co-morbidities impacted this encounter? (DM, HTN, Smoking, COPD, CAD, Canc er, CVA, ARF, Chemo, Hep., AIDS, mental health diagnosis, sleep apnea, morbid obesity)? @ -Seizure disorder Was patient admitted / discharged? Hospital course, mention meds given and route, prescriptions, significant lab abnormalities, going to OR and other pertinent info. @ -Patient presents emergency department the breakthrough seizure. Does appear to have injured the left side of her face as there is bruising and tenderness over the left cheekbone. Vision is intact. Patient currently at her baseline mental status. She feels she needs to have her Keppra dose increased. Does not follow-up with a neurologist. States she has been compliant with medications and took her dose this morning. I recommended seizure workup, we did discuss imaging which she would like of the face. We also obtain CT brain due to the breakthrough seizure. She was in agreement this plan. Patient will be symptomatically treat with IV fluids, 1 g of IV Keppra, as well as Tylenol. Imaging returned negative for any obvious acute process. Laboratory studies are all within acceptable limits. After 2 hours observation here in the department, no further breakthrough seizures. Discussed the results with the patient. She will be discharged home at this time with your new prescription. She will be taking Keppra 1000 mg twice daily. Recommended follow-up with neurology as well as with her PCP. She was in agreement this plan. Strict return precautions discussed. Discussed that she cannot operate motor vehicle for at least 6 months now that she had a seizure today. She was in agreement this plan. I will provide the patient with a prescription for Keppra. I instructed the patient to follow up with their PCP in the next 1-3 days... I explained that the patient should return to the emergency department if they experience any worsening symptoms. Strict return precautions were discussed with the patient. The patient expressed understanding of these instructions. I answered all questions that the patient had. The patient was discharged home in good condition with their prescriptions and follow up information. Undiagnosed new problem with uncertain prognosis? @ -No Drug Therapy requiring intensive monitoring for toxicity (Heparin, Nitro, Insulin, Cardizem)? @ -No Were any procedures done? @ -No Diagnosis/symptom? @ -Breakthrough seizure Acute, or Chronic, or Acute on Chronic? @ -Acute Uncomplicated (without systemic symptoms) or Complicated (systemic symptoms)? @ -Uncomplicated Side effects of treatment? @ -None Exacerbation, Progression, or Severe Exacerbation] @ -No Poses a threat to life or bodily function? @ -Unlikely at this time - Lab Data Result diagrams: 05/17/24 11:05 05/17/24 11:05 Lab Results 05/17/24 05/17/24 Range/Units 11:05 11:05 WBC 9.3 (3.8-10.6) k/uL RBC 5.03 (3.80-5.40) m/uL Hgb 15.0 (11.4-16.0) gm/dL Hct 47.3 H (34.0-46.0) % MCV 94.2 (80.0-100.0) fL MCH 29.9 (25.0-35.0) pg MCHC 31.8 (31.0-37.0) g/dL RDW 12.8 (11.5-15.5) % Plt Count 225 (150-450) k/uL MPV 8.4 Neutrophils % 77 % Lymphocytes % 15 % Monocytes % 5 % Eosinophils % 1 % Basophils % 0 % Neutrophils # 7.2 (1.3-7.7) k/uL Lymphocytes # 1.4 (1.0-4.8) k/uL Monocytes # 0.5 (0-1.0) k/uL Eosinophils # 0.1 (0-0.7) k/uL Basophils # 0.0 (0-0.2) k/uL Sodium 139 (137-145) mmol/L Potassium 4.3 (3.5-5.1) mmol/L Chloride 103 (98-107) mmol/L Carbon Dioxide 29 (22-30) mmol/L Anion Gap 7 mmol/L BUN 11 (7-17) mg/dL Creatinine 0.67 (0.52-1.04) mg/dL Est GFR (CKD-EPI)AfAm >90 (>60 ml/min/1.73 sqM) Est GFR (CKD-EPI)NonAf >90 (>60 ml/min/1.73 sqM) Glucose 99 (74-99) mg/dL Calcium 8.6 (8.4-10.2) mg/dL Magnesium 1.9 (1.6-2.3) mg/dL Total Bilirubin 0.4 (0.2-1.3) mg/dL AST 28 (14-36) U/L ALT 36 H (4-34) U/L Alkaline Phosphatase 75 (38-126) U/L Total Protein 6.5 (6.3-8.2) g/dL Albumin 4.3 (3.5-5.0) g/dL Serum Alcohol <10 mg/dL - EKG Data -: EKG Interpreted by Me EKG Comments: 12-lead Electrocardiogram Interpretation Note EKG was reviewed and interpreted by myself. 12-lead ECG performed at 1054 is interpreted by me as revealing normal sinus rhythm with incomplete right bundle branch block pattern at a rate of 73 beats per minute. [place] is normal. [place] interval is 152 ms, QRS duration is 105 ms, QTc is 414 ms.. Chronic T wave inversion seen in III though seen on prior EKGs, most recent from June 2023. There were no obvious acute ST or T wave abnormalities to suggest myocardial ischemia or injury. R wave progression across the precordium was satisfactory. By my interpretation this EKG is non-diagnostic for acute ischemia. Disposition Clinical Impression: Breakthrough seizure Disposition: ADMITTED IP TO THIS HOSP Condition: Stable Instructions (If sedation given, give patient instructions): Seizure/Epilepsy Discharge Instructions & Follow-Up Additional Instructions: Avani Angeles had a breakthrough seizure today. Workup was unremarkable. I will increase her Keppra dosage to 1 g twice daily. Follow-up with your PCP in the next 1 to 3 days. Attempt follow-up with a neurology specialist soon. Return if any worsening symptoms. Due to your seizure today, he cannot operate a motor vehicle or heavy machinery for at least 6 months as long as you are seizure-free over those 6 months. Return if any worsening symptoms. Prescriptions: levETIRAcetam [Keppra] 1,000 mg PO Q12HR 30 Days #60 tab Is patient prescribed a controlled substance at d/c from ED?: No Referrals: Josuha Maya MD [Primary Care Provider] - 1-2 days Harmeet Craig DO [STAFF PHYSICIAN] - 1-2 days Time of Disposition: 12:39
[2024-05-17] MEDS: levETIRAcetam IV 500 MG/5 ML VIAL IVP STA (11:19)
[2024-05-17] MEDS: ACETAMINOPHEN TAB 500 MG TAB PO STA (11:19)
[2024-05-17] MEDS: SODIUM CHLORIDE 0.9% 1,000 ML IV STA (11:20)
[2024-05-17 11:28] LABS: Basophils % (A) 0 %; Eosinophils # (A) 0.1 k/uL (0-0.7); Eosinophils % (A) 1 %; HCT 47.3 % (34.0-46.0); Lymphocytes # (A) 1.4 k/uL (1.0-4.8); Lymphocytes % (A) 15 %; MCH 29.9 pg (25.0-35.0); MCHC 31.8 g/dL (31.0-37.0); MCV 94.2 fL (80.0-100.0); Mean Platelet Volume 8.4; Monocytes # (A) 0.5 k/uL (0-1.0); Monocytes % (A) 5 %; Neutrophils # (A) 7.2 k/uL (1.3-7.7); Neutrophils % (A) 77 %; Platelet Count 225 k/uL (150-450); RBC 5.03 m/uL (3.80-5.40); RDW 12.8 % (11.5-15.5); WBC 9.3 k/uL (3.8-10.6)
[2024-05-17 11:39] LABS: ALT 36 U/L (4-34); AST 28 U/L (14-36); African American GFR (CKD) >90 (>60 ml/min/1.73 sqM); Albumin 4.3 g/dL (3.5-5.0); Alcohol <10 mg/dL; Alkaline Phosphatase 75 U/L (38-126); Anion Gap 7 mmol/L; Blood Urea Nitrogen 11 mg/dL (7-17); Calcium 8.6 mg/dL (8.4-10.2); Carbon Dioxide 29 mmol/L (22-30); Chloride 103 mmol/L (98-107); Glucose 99 mg/dL (74-99); Magnesium 1.9 mg/dL (1.6-2.3); Non-African American GFR(CKD) >90 (>60 ml/min/1.73 sqM); Potassium 4.3 mmol/L (3.5-5.1); Sodium 139 mmol/L (137-145); Total Bilirubin 0.4 mg/dL (0.2-1.3); Total Protein 6.5 g/dL (6.3-8.2)
--- NOTE | 2024-05-17 12:05 | CT ---
EXAMINATION TYPE: CT brain wo con DATE OF EXAM: 05/17/2024 COMPARISON: 08/10/2023 CLINICAL INDICATION: Female, 28 years old with history of seizure activity; PHH, Seizure activity CT DLP: 1396.4 mGycm Automated exposure control for dose reduction was used. Findings: The ventricles, basal cisterns and sulci over the convexities are within normal limits and there is n o mass effect or shift of midline structures. No abnormal density is seen throughout the brain parenchyma and there is no acute intra or extra-axia l hemorrhage. The posterior fossa including the brainstem, fourth ventricle and cerebellar pontine angles appear no rmal. Intraorbital contents appear normal and symmetric. Visualized paranasal sinuses and mastoid air cells are well aerated. The calvarium is intact. IMPRESSION: No significant abnormality seen. There is no acute bleed or mass effect. [facility], , 05/17/2024 12:03 PM
--- NOTE | 2024-05-17 12:08 | CT ---
EXAMINATION TYPE: CT facial bones wo con DATE OF EXAM: 05/17/2024 COMPARISON: None CLINICAL INDICATION: Female, 28 years old with history of left face pain after fall from seizure; PHH , LT face pain after fall from seizure TECHNIQUE: CT scan of the sinuses is performed without contrast, axial images are obtained, coronal reformatted images are also reviewed. CT DLP: 1396.[address] CTDI: mGy Automated exposure control for dose reduction was used. FINDINGS: The facial bones are intact and there is no fracture or focal intraosseous abnormality. The paranasal sinuses including the frontal, ethmoid, sphenoid, and maxillary sinuses bilaterally ar e well-aerated. There is minimal chronic inflammatory change in the floors of the maxillary sinuses.. The ostiomeatal complex is patent bilaterally on the coronal images. Visualized portion of mastoid air cells show no abnormal opacification. The globes are intact bilate rally. IMPRESSION: 1. No acute trauma and facial bones. 2.Minimal chronic inflammatory change in the maxillary sinuses. [facility], Workstation: [id number] 05/17/2024 12:06 PM
[2024-05-17 12:54] VITALS: BP 112/81; PULSE 69
== END 2024-05-17 12:54 | disposition other institution (70) ==
LOC: EC 10:31
DX: G40.909 Epilepsy, unspecified, not intractable, without status epilepticus (principal); I45.10 Unspecified right bundle-branch block; F17.290 Nicotine dependence, other tobacco product, uncomplicated; Z79.899 Other long term (current) drug therapy
CPT/HCPCS: 93005; 80053; 83735; 85025; 70486; 70450; 99285; 96374; 96361 ×2; G0480; J1953; 36415; 80320

== ENCOUNTER 2024-10-10 17:11 | Emergency (ER) | payer OTHER ==
[2024-10-10 17:17] VITALS: RESP 18; TEMP 97.8
[2024-10-10 18:46] LABS: ALT 17 U/L (4-34); AST 28 U/L (14-36); African American GFR (CKD) >90 (>60 ml/min/1.73 sqM); Albumin 4.2 g/dL (3.5-5.0); Alkaline Phosphatase 96 U/L (38-126); Anion Gap 10 mmol/L; Blood Urea Nitrogen 13 mg/dL (7-17); Calcium 9.1 mg/dL (8.4-10.2); Carbon Dioxide 23 mmol/L (22-30); Chloride 103 mmol/L (98-107); Glucose 92 mg/dL (74-99); Non-African American GFR(CKD) >90 (>60 ml/min/1.73 sqM); Potassium 4.2 mmol/L (3.5-5.1); Sodium 136 mmol/L (137-145); Total Protein 6.6 g/dL (6.3-8.2)
[2024-10-10 18:53] LABS: Basophils # (A) 0.05 10*3/uL (0.00-0.10); Basophils % (A) 0.4 %; Eosinophils # (A) 0.03 10*3/uL (0.04-0.35); Eosinophils % (A) 0.3 %; HCT 43.3 % (37.2-46.3); HGB 15.2 g/dL (12.0-15.0); Lymphocytes # (A) 2.15 10*3/uL (0.90-5.00); Lymphocytes % (A) 18.9 %; MCH 31.1 pg (27.0-32.0); MCHC 35.1 g/dL (32.0-37.0); MCV 88.5 fL (80.0-97.0); Monocytes # (A) 0.70 10*3/uL (0.20-1.00); Monocytes % (A) 6.2 %; Neutrophils # (A) 8.41 10*3/uL (1.80-7.70); Neutrophils % (A) 73.9 %; Platelet Count 227 10*3/uL (140-440); RBC 4.89 10*6/uL (4.10-5.20); RDW 12.6 % (11.5-14.5); WBC 11.37 10*3/uL (4.50-10.00)
[2024-10-10] MEDS: KETOROLAC 15 MG/ML 1 ML VIAL IVP STA (19:02)
[2024-10-10 19:26] VITALS: BP 112/87; PULSE 69
--- NOTE | 2024-10-10 19:31 | XR ---
EXAMINATION TYPE: XR foot complete RT DATE OF EXAM: 10/10/2024 7:22 PM COMPARISON: None. CLINICAL INDICATION: Female, 28 years old with history of seizure with injury, pain TECHNIQUE: 3 view(s) obtained. FINDINGS: No acute fracture or dislocation evident. Joint spaces appear preserved. Soft tissues are normal. Ach illes tendon calcaneal heel spur is present. Follow up exams can be performed 7-10 days from acute trauma for continued pain. IMPRESSION: 1. No acute osseous abnormality right foot [facility], Workstation: [facility], 10/10/2024 7:29 PM
--- NOTE | 2024-10-10 19:32 | XR ---
EXAMINATION TYPE: XR ankle complete RT DATE OF EXAM: 10/10/2024 7:22 PM COMPARISON: None. CLINICAL INDICATION: Female, 28 years old with history of seizure with injury, pain TECHNIQUE: 3 view(s) obtained. FINDINGS: No acute fracture or dislocation evident. Ankle mortise is intact. A secondary ossification centers i nferior to the medial malleolus. This has smooth cortical margins. Soft tissues appear normal. Small Achilles tendon calcaneal heel spur is present. Follow up exams can be performed 7-10 days from acute trauma for continued pain. IMPRESSION: 1. No acute osseous abnormality right ankle. [facility], Workstation: [facility], 10/10/2024 7:30 PM
--- NOTE | 2024-10-10 19:34 | CT ---
EXAMINATION TYPE: CT brain cspine wo con DATE OF EXAM: 10/10/2024 7:21 PM COMPARISON: None. CLINICAL INDICATION: Female, 28 years old with history of seizure, head injury, seizure this morning, hit head in bathroom, pain TECHNIQUE: CT of the brain is performed utilizing 3 mm thick sections through the posterior fossa and 3 mm thick sections through the remaining calvarium. Study is performed within 24 hours of arrival to the hospital. Contrast used: mL of , (none if empty) CT DLP: 1591.8 mGycm, Automated exposure control for dose reduction was used. FINDINGS: No abnormal hyperdensity is present to suggest an acute intracranial hemorrhage. No mass lesion is evident. No acute infarcts are evident. Ventricles and sulci are appropriate for the patient age. Paranasal sinuses and mastoid air cells within the [id number] are clear. IMPRESSIONS: 1. No acute intracranial process. Follow-up MRI can be performed as clinically indicated. CT cervical spine. COMPARISON: None TECHNIQUE: CT of the cervical spine is performed in the axial plane at 2 mm thick sections. Reconstr ucted images in the coronal, and sagittal plane are reviewed on the computer. FINDINGS: No acute fractures are evident. Vertebral body alignment is normal. Disc heights are preserved. Vertebral body heights are preserved. No spinal canal stenosis is evident. No neural foraminal stenosis is evident. IMPRESSION: 1. No acute osseous abnormality cervical spine [facility], Workstation: [email or web address], 10/10/2024 7:32 PM
--- NOTE | 2024-10-10 19:52 | ED ---
Seizure HPI - General Chief Complaint: Seizure Stated Complaint: seizure Source: patient Mode of arrival: ambulatory Limitations: no limitations - History of Present Illness Initial Comments: 28-year-old female with past medical history of seizure disorder who presents to the emergency department with seizure. States that she had a seizure today that lasted for approximately 6 minutes. It was witnessed by her significant other. She did injure her right foot and ankle. Also hit her head on the countertop. Patient states she has been taking her medications as they are instructed. She typically has breakthrough seizures once a month. She does not follow with a neurologist. Patient takes Keppra without any missed doses. Denies concern for as she does have a history of tubal ligation. No fevers. No neck pain. No other alleviating, precipitating or modifying factors - Related Data Previous Rx's Medication Instructions Recorded levETIRAcetam [Keppra] 750 mg PO Q12HR #60 tab 05/28/23 levETIRAcetam [Keppra] 1,000 mg PO Q12HR 30 Days #60 tab 05/17/24 Allergies Allergy/AdvReac Type Severity Reaction Status Date / Time No Known Allergies Allergy Verified 10/10/24 17:17 Review of Systems ROS Statement: Those systems with pertinent positive or pertinent negative responses have been documented in the HPI. ROS Other: All systems not noted in ROS Statement are negative. Past Medical History Past Medical History: Seizure Disorder Additional Past Medical History / Comment(s): SEIZURE DISORDER History of Any Multi-Drug Resistant Organisms: None Reported Past Surgical History: No Surgical Hx Reported Additional Past Surgical History / Comment(s): wisdom teeth Past Anesthesia/Blood Transfusion Reactions: No Reported Reaction Additional Past Anesthesia/Blood Transfusion Reaction / Comment(s): HAS NOT HAD GENERAL ANESTHESIA. Past Psychological History: Anxiety Smoking Status: Vaper Past Alcohol Use History: Occasional Past Drug Use History: None Reported, Marijuana - Past Family History Mother Family Medical History: No Reported History General Exam Limitations: no limitations General appearance: alert, in no apparent distress Head exam: Present: atraumatic, normocephalic, normal inspection Eye exam: Present: normal appearance, PERRL, EOMI. Absent: scleral icterus, conjunctival injection, periorbital swelling ENT exam: Present: normal exam, mucous membranes moist Neck exam: Present: normal inspection. Absent: tenderness, meningismus, lymphadenopathy Respiratory exam: Present: normal lung sounds bilaterally. Absent: respiratory distress, wheezes, rales, rhonchi, stridor Cardiovascular Exam: Present: regular rate, normal rhythm, normal heart sounds. Absent: systolic murmur, diastolic murmur, rubs, gallop, clicks GI/Abdominal exam: Present: soft, normal bowel sounds. Absent: distended, te nderness, guarding, rebound, rigid Extremities exam: Present: full ROM, tenderness (Tenderness to palpation of the medial and lateral malleoli), normal capillary refill. Absent: pedal edema, joint swelling, calf tenderness Back exam: Present: normal inspection Neurological exam: Present: alert, oriented X3, CN II-XII intact Psychiatric exam: Present: normal affect, normal mood Skin exam: Present: warm, dry, intact, normal color. Absent: rash Course Vital Signs 10/10/24 10/10/24 17:14 19:25 Temperature 97.8 F Pulse Rate 87 69 Respiratory 18 18 Rate Blood Pressure 121/76 112/87 O2 Sat by Pulse 99 99 Oximetry Medical Decision Making - Medical Decision Making Was pt. sent in by a medical professional or institution (, PA, DICTAPHONE TYPIST, urgent care, hospital, or [facility]...) When possible be specific @ -No Did you speak to anyone other than the patient for history (EMS, parent, family, police, friend...)? What history was obtained from this source @ -Significant other for history Did you review nursing and triage notes (agree or disagree)? Why? @ -I reviewed and agree with nursing and triage notes Were old charts reviewed (outside hosp., previous admission, EMS record, old EKG, old radiological studies, urgent care reports/EKG's, [facility] records)? Report findings @ -No old charts were reviewed Differential Diagnosis (chest pain, altered mental status, abdominal pain women, abdominal pain men, vaginal bleeding, weakness, fever, dyspnea, syncope, headache, dizziness, GI bleed, back pain, seizure, CVA, palpatations, mental health, musculoskeletal)? @ -Differential Seizure: Recurrent seizure disorder, febrile seizure, alcohol withdrawal, stimulants, meningitis, encephalitis, intercranial hemorrhage, intracranial tumor, stroke, eclampsia, thyrotoxicosis, hypocalcemia, hyponatremia, hypernatremia, hypomagnesemia, psychogenic, this is not meant to be an all-inclusive list. EKG interpreted by me (3pts min.). @ -yes and demonstrates sinus rhythm with a rate of 70. NH interval 159. QRS 106. QTc of 412. Baseline artifact with no acute ST segment elevations X-rays interpreted by me (1pt min.). @ -Which demonstrates no acute fracture CT interpreted by me (1pt min.). @ -Which demonstrates no acute intracranial injury U/S interpreted by me (1pt. min.). @ -None done What testing was considered but not performed or refused? (CT, X-rays, U/S, labs)? Why? @ -None What meds were considered but not given or refused? Why? @ -None Did you discuss the management of the patient with other professionals (doug figueroa i.e., Dr., PA, DICTAPHONE TYPIST, lab, RT, psych nurse, social insurance specialist, painter foreman, teacher, job placement officer, telehealth case manager)? Give summary @ -No Was smoking cessation discussed for >3mins.? @ -No Was critical care preformed (if so, how long)? @ -No Were there social determinants of health that impacted care today? How? (Homelessness, low income, unemployed, alcoholism, drug addiction, transportation, low edu. Level, literacy, decrease access to med. care, skilled nursing, rehab)? @ -No Was there de-escalation of care discussed even if they declined (Discuss DNR or withdrawal of care, Hospice)? DNR status @ -No What co-morbidities impacted this encounter? (DM, HTN, Smoking, COPD, CAD, Cancer, CVA, ARF, Chemo, Hep., AIDS, mental health diagnosis, sleep apnea, morbid obesity)? @ -Seizure disorder Was patient admitted / discharged? Hospital course, mention meds given and route, prescriptions, significant lab abnormalities, going to OR and other pertinent info. @ -Discharged. upon arrival patient seen and evaluated in room 9. Thorough history and physical exam was performed. Patient does go for CT of her head and neck because of her head injury. X-ray performed of the right foot and ankle. She is given Toradol for pain control. Laboratory studies are conducted. I did request a urine sample however patient cannot provide 1. I did discuss results with the patient. I will send a Keppra level which will not return for approximately 48 hours. Patient is to follow-up with her primary care doctor f or these results and talk about possible medication adjustments. Instructed to return for any new or worsening symptoms Undiagnosed new problem with uncertain prognosis? @ -No Drug Therapy requiring intensive monitoring for toxicity (Heparin, Nitro, Insulin, Cardizem)? @ -No Were any procedures done? @ -No Diagnosis/symptom? @ -Acute breakthrough seizure, history of seizure disorder, right ankle and foot pain, blunt head injury Acute, or Chronic, or Acute on Chronic? @ -Acute Uncomplicated (without systemic symptoms) or Complicated (systemic symptoms)? @ -complicated Side effects of treatment? @ -No Exacerbation, Progression, or Severe Exacerbation? @ -No Poses a threat to life or bodily function? How? (Chest pain, [place], [place], pneumonia, PE, COPD, DKA, ARF, appy, cholecystitis, CVA, Diverticulitis, Homicidal, Suicidal, threat to staff... and all critical care pts) @ -No - Lab Data Result diagrams: 10/10/24 18:36 10/10/24 18:36 Lab Results 10/10/24 10/10/24 Range/Units 18:36 18:36 WBC 11.37 H (4.50-10.00) 10*3/uL RBC 4.89 (4.10-5.20) 10*6/uL Hgb 15.2 H (12.0-15.0) g/dL Hct 43.3 (37.2-46.3) % MCV 88.5 (80.0-97.0) fL MCH 31.1 (27.0-32.0) pg MCHC 35.1 (32.0-37.0) g/dL Plt Count 227 (140-440) 10*3/uL MPV 11.1 (9.5-12.2) fL Immature Gran % (Auto) 0.3 % Neutrophils % 73.9 % Lymphocytes % 18.9 % Monocytes % 6.2 % Eosinophils % 0.3 % Basophils % 0.4 % Immature Gran # 0.03 (0.00-0.04) 10*3/uL Neutrophils # 8.41 H (1.80-7.70) 10*3/uL Lymphocytes # 2.15 (0.90-5.00) 10*3/uL Monocytes # 0.70 (0.20-1.00) 10*3/uL Eosinophils # 0.03 L (0.04-0.35) 10*3/uL Basophils # 0.05 (0.00-0.10) 10*3/uL Sodium 136 L (137-145) mmol/L Potassium 4.2 (3.5-5.1) mmol/L Chloride 103 (98-107) mmol/L Carbon Dioxide 23 (22-30) mmol/L Anion Gap 10 mmol/L BUN 13 (7-17) mg/dL Creatinine 0.50 L (0.52-1.04) mg/dL Est GFR (CKD-EPI)AfAm >90 (>60 ml/min/1.73 sqM) Est GFR (CKD-EPI)NonAf >90 (>60 ml/min/1.73 sqM) Glucose 92 (74-99) mg/dL Calcium 9.1 (8.4-10.2) mg/dL Total Bilirubin 0.5 (0.2-1.3) mg/dL AST 28 (14-36) U/L ALT 17 (4-34) U/L Alkaline Phosphatase 96 (38-126) U/L Total Protein 6.6 (6.3-8.2) g/dL Albumin 4.2 (3.5-5.0) g/dL Disposition Clinical Impression: Breakthrough seizure Disposition: HOME SELF-CARE Condition: Stable Instructions (If sedation given, give patient instructions): Seizure/Epilepsy Discharge Instructions & Follow-Up Additional Instructions: Please have your foot and ankle x-rayed in 7 to 10 days if your pain persists. rest, ice and elevate the extremity. Follow-up with your primary care doctor in regards to your Keppra levels. Continue taking your medications as they are instructed. Return for any new or worsening symptoms Is patient prescribed a controlled substance at d/c from ED?: No Referrals: Joshua Maya MD [Primary Care Provider] - 1-2 days Time of Disposition: 20:04
== END 2024-10-10 21:10 | disposition home or self-care (01) ==
LOC: EC 17:11
DX: G40.909 Epilepsy, unspecified, not intractable, without status epilepticus (principal); F17.290 Nicotine dependence, other tobacco product, uncomplicated
CPT/HCPCS: 36415; 80053; 85025; 73610; 73630; 72125; 70450; 99284; 96374; J1885